=== PATIENT | female | born 1950 | race Caucasian/White ===

== ENCOUNTER 2016-10-21 15:39 | Day surgery (SDC) | payer MEDICARE ==
[2012-06-02 14:05] VITALS: BP 115/53
[~2016-10-21 15:39] MED LIST: DIPRIVAN 200 MG/20 ML IV ONE; Kenalog-40 IM ONE; Lactated Ringers IV ONE; Sensorcaine 0.25% 10 ML IJ ONE
--- NOTE | 2016-10-21 16:55 | XRAY ---
8 seconds of fluoroscopy was used in surgery for a left MBB L3-S1.
--- NOTE | 2016-10-21 16:55 | XRAY ---
Indication: Left L3-S1 MBB. Intraoperative fluoroscopy was provided for 8 seconds. Single digital spot image submitted for interpretation demonstrates 4 posterior spinal needles with the tips projecting adjacent to the left L3-S1 superior facets. Correlate with intraoperative findings/report.
== END 2016-10-21 16:50 | disposition home or self-care (01) ==
LOC: SDC-PAIN 15:39
PROVIDERS: ATTEND Pain Medicine Interventional Pain Medicine
DX: M47.816 Spondylosis without myelopathy or radiculopathy, lumbar region (principal); M47.22 Other spondylosis with radiculopathy, cervical region; M48.06 Spinal stenosis, lumbar region; M51.36 Other intervertebral disc degeneration, lumbar region; G56.02 Carpal tunnel syndrome, left upper limb
CPT/HCPCS: 64493; 64494; 64495; 72020; 77003; J2704; J3301

== ENCOUNTER 2016-11-13 05:59 | Day surgery (SDC) | payer MEDICARE ==
[2016-11-13] MEDS ORDERED: Lactated Ringers 1,000 ML IV SCH (06:30)
[2016-11-13] MEDS ORDERED: Lactated Ringers 1,000 ML IV ONE (07:52)
[2016-11-13] MEDS ORDERED: DIPRIVAN 200 MG/20 ML IV ONE (08:00)
[2016-11-13] MEDS ORDERED: Ketamine HCl 50 MG/ML IV ONE (08:00)
[2016-11-13 08:25] VITALS: O2SAT 96
[2016-11-13 09:07] VITALS: BP 127/80; PULSE 92
--- NOTE | 2016-11-13 14:01 | OP ---
SURGERY DATE: 11/13/16 SURGERY TIME: 0700 PREOPERATIVE DIAGNOSIS: 1. HEME-OCCULT POSITIVE STOOLS. 2. CHANGE IN BOWEL HABITS. POSTOPERATIVE DIAGNOSIS: 1. NORMAL EGD. 2. COLON POLYPS X 5. PROCEDURE: 1. EGD. 2. Colonoscopy. SPECIMENS: 1. Five hot forceps polypectomies from descending colon. ESTIMATED BLOOD LOSS: Minimal. SURGEON: Dr. Fernando Wood. ANESTHESIA: MAC by Dion Stone CRNA. DESCRIPTION OF PROCEDURE: After informed written consent was obtained, the patient was taken to the endoscopy suite. She underwent monitored anesthesia and a bite block was inserted. First the endoscope was inserted in the posterior oropharynx and under direct visualization, the esophagus was traversed. The esophageal mucosa had a normal mucosal appearance free of lesions or defects. The gastroesophageal junction likewise had a normal appearance. Upon entry into the stomach there was a normal rugated gastric mucosa free of lesions or defects. The antrum was inspected and noted to be free of any ulcerations or lesions. The pylorus was traversed and the 1st and 2nd portions of the duodenum were within normal limits. Upon withdrawal of the scope, all mucosal surfaces were noted to be within normal. The scope was removed and the scopes were switched. Digital rectal exam showed normal sphincter tone and no internal lesions. The scope was inserted in the rectum and sequentially the entire colonic mucosa was traversed. The level of the cecum was reached and verified with direct visualization of the ileocecal valve. Upon withdrawal, careful mucosal inspection revealed no obvious mucosal abnormalities until the level of the descending colon was reached. There were 5 sessile polyps in near proximity. They were all reviewed with hot forceps in their entirety with good hemostasis. Polyps were sent for pathology testing in 2 separate containers. The remainder of the colonic mucosa was within normal limits upon withdrawal with no obvious lesions. Prep was noted to be fair with some liquid stool present in multiple different areas. The scope was removed and the patient was transferred to the recovery room in excellent condition.
== END 2016-11-13 09:11 | disposition home or self-care (01) ==
LOC: SDC 05:59
PROVIDERS: ATTEND Family Medicine
PROC: 0DBM8ZX Excision of Descending Colon, Via Natural or Artificial Opening Endoscopic, Diagnostic (ICD-10-PCS; principal; 2016-11-13)
DX: D12.4 Benign neoplasm of descending colon (principal); R19.5 Other fecal abnormalities; R19.4 Change in bowel habit
CPT/HCPCS: 00740; 00810; 36415; J2704

== ENCOUNTER 2016-12-30 15:49 | Day surgery (SDC) | payer MEDICARE ==
[2012-06-02 14:05] VITALS: BP 115/53
[~2016-12-30 15:49] MED LIST changes: +Lactated Ringers 1,000 ML IV ONE; -Lactated Ringers IV ONE
--- NOTE | 2016-12-30 17:20 | XRAY ---
7 seconds fluoroscopy time in surgery for left L2-5 MBB.
--- NOTE | 2017-01-01 02:59 | XRAY ---
Indication: Left L2-L5 MBB. Intraoperative fluoroscopy was provided for 7 seconds. Single digital spot image submitted for interpretation demonstrates posterior spinal needles with the tips projected over the expected course of the left L2-L5 nerve roots. Correlate with intraoperative findings/report.
== END 2016-12-30 17:00 | disposition home or self-care (01) ==
LOC: SDC-PAIN 15:49
PROVIDERS: ATTEND Pain Medicine Interventional Pain Medicine
DX: M48.06 Spinal stenosis, lumbar region (principal); M47.22 Other spondylosis with radiculopathy, cervical region; M51.36 Other intervertebral disc degeneration, lumbar region; M48.02 Spinal stenosis, cervical region; M47.816 Spondylosis without myelopathy or radiculopathy, lumbar region
CPT/HCPCS: 64493; 64494; 64495; 72020; 77003; J2704; J3301

== ENCOUNTER 2017-07-21 12:22 | Observation (INO) | payer MEDICARE ==
[2017-07-21] MEDS ORDERED: Sodium Chloride 0.9% 1000 ML 1,000 ML IV STA (13:26)
[2017-07-21] MEDS ORDERED: Zofran 4 MG/2 ML VIAL IV ONE ×2 (13:26→17:26)
[2017-07-21] MEDS ORDERED: Hydromorphone 1 mg/ml Ampule IV ONE ×2 (13:26→16:10)
--- NOTE | 2017-07-21 13:35 | ERPHSYRPT ---
- History of Present Illness Time Seen by Provider: 07/21/17 13:10 Historian: patient Exam Limitations: clinical condition Patient Subjective Stated Complaint: pt states for the past 3 days she has had diarrhea with right lower quad abdominal pain. pt was seen at pain clinic this morning. Triage Nursing Assessment: pt pink, warm, dry. abdomen soft tender in right lower quad. pt afebrile. Physician History: PATIENT WITH A HISTORY OF MIGRAINE HEADACHE, TIA, HYPERTENSION, COPD, ARTHRITIS , BIPOLAR, AND COLITIS COMPLAINS OF SEVERE RIGHT LOWER ABDOMINAL PAINS FOR 3 DAYS ASSOCIATED WITH WATERY DIARRHEA, 3 EPISODES DAILY. DENIES FEVER, NAUSEA, EMESIS OR URINARY SYMPTOMS. Timing/Duration: day(s) Activities at Onset: none Quality: cramping, sharpness Abdominal Pain Onset Location: RLQ Pain Radiation: no radiation Severity of Pain-Max: severe Severity of Pain-Current: severe Modifying Factors: Improves With: movement Associated Symptoms: loss of appetite, other (DIARRHEA) Previous symptoms: same symptoms as today Allergies/Adverse Reactions: Penicillins Allergy (Mild, Verified 07/21/17 12:53) itching and hives meperidine HCl [From Demerol] Allergy (Unknown, Verified 07/21/17 12:53) "MAKES CRAZY" Home Medications: Aspirin/Dipyridamole [Aggrenox Capsules] 1 cap PO BID 06/22/14 [History] Cyclobenzaprine HCl 10 mg [Cyclobenzaprine 10 MG] 10 mg PO HS 06/22/14 [ History] Fluticasone/Salmeterol [Advair Hfa 115-21 Mcg Inhaler] 1 puff IH DAILY 06/22/14 [History] Glyburide 0.625 mg PO DAILY 06/22/14 [History] Levothyroxine Sodium 50 Mcg [Synthroid 50 Mcg] 50 mcg PO DAILY 06/22/14 [ History] Lisinopril 5 mg [Zestril 5 MG] 2.5 mg PO HS 06/22/14 [History] Magnesium Oxide 400 mg [Mag-Ox 400] 400 mg PO BID 06/22/14 [History] Metoprolol Tartrate 25 mg [Lopressor 25MG Tab] 25 mg PO BID 06/22/14 [ History] [place]-3/Dha/Epa/Fish Oil [[place]-3 Fish Oil 1,200 mg Sfgl] 1,200 mg PO DAILY [History] Omeprazole [Prilosec] 40 mg PO DAILY 06/22/14 [History] Potassium Chloride 20 Meq Tab [Potassium Chloride 20 MEQ TABLET] 40 meq PO BID 06/22/14 [History] Pregabalin [Lyrica] 150 mg PO QAM 06/22/14 [History] Simvastatin 40 mg [Zocor 40 mg] 40 mg PO HS 06/22/14 [History] Venlafaxine HCl [Effexor Xr] 150 mg PO DAILY 06/22/14 [History] Eszopiclone [Lunesta] 2 mg PO HS 06/27/14 [History] Ascorbic Acid 500 mg [Vitamin C 500 MG] 500 mg PO DAILY 12/19/15 [History] Betamethasone Valerate 1 applic TP UD PRN 12/19/15 [History] Cholecalciferol (Vitamin D3) [Vitamin D3] 1,000 unit PO DAILY 12/19/15 [History] Clobetasol Propionate 1 applic TP UD PRN 12/19/15 [History] Cyanocobalamin (Vitamin B-12) [Vitamin B12] 1,000 mcg PO DAILY 12/19/15 [History ] Furosemide 20 mg [Lasix 20 mg] 10 mg PO DAILY 12/19/15 [History] Meclizine HCl 12.5 mg PO TID PRN PRN 12/19/15 [History] Pregabalin [Lyrica 75 mg Cap] 75 mg PO UD 12/19/15 [History] Hydrocodone/APAP 10/325 mg [[place] 10/325 MG Tablet] 1 tab PO Q4-6HPRN PRN 06/03/16 [History] Hydroxychloroquine Sulfate [Plaquenil] 200 mg PO BID 07/21/17 [History] Hx Tetanus, Diphtheria Vaccination/Date Given: Yes (up to date) Hx Influenza Vaccination/Date Given: Yes Hx Pneumococcal Vaccination/Date Given: Yes Immunizations Up to Date: Yes - Review of Systems Constitutional: No Fever, No Chills Ears, Nose, & Throat: No Symptoms Respiratory: No Symptoms Cardiac: No Symptoms Abdominal/Gastrointestinal: Abdominal Pain, Diarrhea Genitourinary Symptoms: No Symptoms Musculoskeletal: No Symptoms Skin: No Symptoms Neurological: No Symptoms Psychological: No Symptoms Endocrine: No Symptoms - Past Medical History Pertinent Past Medical History: Yes Neurological History: Migraines, TIA, Other ENT History: No Pertinent History Cardiac History: High Cholesterol, Hypertension Respiratory History: Asthma, Bronchitis, COPD, Pneumonia Endocrine Medical History: Ayan's Disease, Diabetes Type II, Hypothyroidism Musculoskeletal History: Arthritis, Degenerative Disk Disease, Fibromyalgia, Osteoarthritis, Osteoporosis, Rheumatoid Arthritis GI Medical History: Colitis, Diverticulitis, Esophageal Disorder, GERD, Gallbladder Disease, GI Bleed, Hemorrhoids, Irritable Bowel, Polyps History: Other Psycho-Social History: Anxiety, Bipolar, Depression, Panic Disorder Female Reproductive Disorders: No Pertinent History Other Medical History: PT HAS HX OF PREVIOUS EPISODE OF BELLS PALSY, patient states she has had low kidney function before - Past Surgical History Past Surgical History: Yes Neuro Surgical History: No Pertinent History Cardiac: Cardiac Catheterization Respiratory: No Pertinent History Gastrointestinal: Cholecystectomy Genitourinary: No Pertinent History Musculoskeletal: Joint Replacement, Other Female Surgical History: Hysterectomy Other Surgical History: CERIVCAL FUSION AND 5TH,6TH VETEBRAES FUSED. TOTAL RIGHT KNEE, right shoulder rotator cuff and right arm disloation, repair bicep muscle and tendon of righ shoulder - Social History Smoking Status: Former smoker Exposure to second hand smoke: No Alcohol Use: None Drug Use: none Patient Lives Alone: No Significant Family History: diabetes, hypertension - Female History Hx Now: No - Nursing Vital Signs Nursing Vital Signs: Initial Vital Signs Temperature 98.2 F 07/21/17 12:48 Pulse Rate 83 07/21/17 12:48 Respiratory Rate 18 07/21/17 12:48 Blood Pressure 125/78 07/21/17 12:48 O2 Sat by Pulse Oximetry 96 07/21/17 12:48 Pain Scale Pain Intensity 6 - Physical Exam General Appearance: no apparent distress, alert Eye Exam: PERRL/EOMI, eyes nml inspection Ears, Nose, Throat Exam: normal ENT inspection, pharynx normal, moist mucous membranes Neck Exam: normal inspection, non-tender, supple, full range of motion Respiratory Exam: normal breath sounds, lungs clear, No respiratory distress Cardiovascular Exam: regular rate/rhythm, normal heart sounds Gastrointestinal/Abdomen Exam: soft, normal bowel sounds, tenderness (RIGHT LOWER QUAD TENDERNESS), No mass Back Exam: normal inspection, normal range of motion, No CVA tenderness, No vertebral tenderness Extremity Exam: normal inspection, normal range of motion, pelvis stable Neurologic Exam: alert, oriented x 3, cooperative, normal mood/affect, nml cerebellar function, sensation nml, No motor deficits Skin Exam: normal color, warm, dry SpO2 Interpretation: normal SpO2: 96 Oxygen Delivery: Room Air - CT Exams Abdomen/Pelvis CT Interpretation: Discussed w/radiologist (RETROCECAL APPENDIX IS NOW PROMINENT UP TO 15MM IN DIAMETER WISTH MINIMAL PERIAPPENDICEAL STRANDING, NO PERFORATION) Ordered Tests: Active Orders 24 hr Category Date Time Status Admission/Status Order ROUTINE Care 07/21/17 17:10 Ordered Code Status Order ROUTINE Care 07/21/17 17:10 Ordered IV Care Q6H Care 07/21/17 17:10 Ordered IV Insertion STAT Care 07/21/17 13:13 Active Vital Signs Q2H Care 07/21/17 17:11 Ordered cath [Cath for Specimen-Straight] STAT Care 07/21/17 13:13 Active NPO Diet 07/21/17 17:11 Ordered ABDOMEN AND PELVIS W CONTRAST [CT] Stat Exams 07/21/17 13:27 Completed AMYLASE Stat Lab 07/21/17 13:26 Completed BLOOD CULTURE Stat Lab 07/21/17 13:30 Received CBC W DIFF Stat Lab 07/21/17 13:26 Completed CMP Stat Lab 07/21/17 13:26 Completed LIPASE Stat Lab 07/21/17 13:26 Completed UA W/RFX UR CULTURE Stat Lab 07/21/17 13:27 Completed Oxygen NASAL CANNULA 2 lpm RT 07/21/17 17:10 Ordered Transfer Order Routine Transfer 07/21/17 Ordered Medication Summary Discontinued Medications Generic Name Dose Route Start Last Admin Trade Name Freq PRN Reason Stop Dose Admin Hydromorphone HCl 1 mg 07/21/17 13:26 07/21/17 14:08 Hydromorphone 1 Mg/Ml Ampule IV 07/21/17 13:27 1 mg STAT ONE Administration Hydromorphone HCl Confirm 07/21/17 13:41 Hydromorphone 1 Mg/Ml Ampule Administered 07/21/17 13:42 Dose 1 mg .ROUTE .STK-MED ONE Hydromorphone HCl 1 mg 07/21/17 16:10 07/21/17 16:21 Hydromorphone 1 Mg/Ml Ampule IV 07/21/17 16:11 1 mg STAT ONE Administration Hydromorphone HCl Confirm 07/21/17 16:16 Hydromorphone 1 Mg/Ml Ampule Administered 07/21/17 16:17 Dose 1 mg .ROUTE .STK-MED ONE Sodium Chloride 1,000 mls @ 500 mls/hr 07/21/17 13:26 07/21/17 14:03 Sodium Chloride 0.9% 1000 Ml IV 07/21/17 15:25 500 mls/hr .Q2H STA Administration Sodium Chloride Confirm 07/21/17 13:41 Sodium Chloride 0.9% 1000 Ml Administered 07/21/17 13:42 Dose 1,000 mls @ ud .ROUTE .STK-MED ONE Levofloxacin/Dextrose 500 mg in 100 mls @ 100 mls/hr 07/21/17 16:10 07/21/17 16:26 Levofloxacin 500mg/100ml D5w IV 07/21/17 17:09 100 mls/hr STAT STA Administration Levofloxacin/Dextrose Confirm 07/21/17 16:17 Levofloxacin 500mg/100ml D5w Administered 07/21/17 16:18 Dose 500 mg in 100 mls @ ud IV .STK-MED ONE Ondansetron HCl 4 mg 07/21/17 13:26 07/21/17 14:07 Zofran 4 Mg/2 Ml Vial IV 07/21/17 13:27 4 mg STAT ONE Administration Ondansetron HCl Confirm 07/21/17 13:40 Zofran 4 Mg/2 Ml Vial Administered 07/21/17 13:41 Dose 4 mg .ROUTE .STK-MED ONE Lab/Rad Data: Laboratory Result Diagrams 07/21/17 13:26 07/21/17 13:26 Laboratory Results 07/21/17 07/21/17 07/21/17 Range/Units 13:27 13:26 13:26 WBC 9.3 (4.0-10.5) K/mm3 RBC 3.90 L (4.1-5.4) M/mm3 Hgb 11.6 L (12.0-16.0) gm/dl Hct 36.5 (35-47) % MCV 93.6 (78-100) fl MCH 29.7 (26-32) pg MCHC 31.8 L (32-36) g/dl RDW 15.7 H (11.5-14.0) % Plt Count 338 (150-450) K/mm3 MPV 11.2 H (6-9.5) fl Gran % 64.8 (36.0-66.0) % Lymphocytes % 25.8 (24.0-44.0) % Monocytes % 6.9 (0.0-12.0) % Eosinophils % 1.6 (0.00-5.0) % Basophils % 0.9 (0.0-0.4) % Basophils # 0.08 (0-0.4) Sodium 136 (136-145) mEq/L Potassium 4.5 (3.5-5.1) mEq/L Chloride 99 (98-107) mEq/L Carbon Dioxide 28.1 (21-32) mEq/L Anion Gap 13.3 (5-15) MEQ/L BUN 11 (9-20) mg/dL Creatinine 1.20 (0.55-1.30) mg/dl Estimated GFR 48 ML/MIN Glucose 143 H (70-110) MG/DL Calcium 9.2 (8.5-10.1) mg/dL Total Bilirubin 0.20 (0.2-1.0) mg/dL AST 45 H (15-37) U/L ALT 28 (12-78) U/L Alkaline Phosphatase 92 (46-116) U/L Serum Total Protein 7.9 (6.4-8.2) gm/dL Albumin 3.5 (3.4-5.0) g/dL Amylase 29 (25-115) U/L Lipase 78 (73-393) U/L Ur Collection Type CATH Urine Color YELLOW (YELLOW) Urine Appearance CLEAR (CLEAR) Urine pH 5.0 (5-6) Ur Specific [place] 1.015 (1.005-1.025) Urine Protein NEGATIVE (Negative) Urine Ketones NEGATIVE (NEGATIVE) Urine Blood NEGATIVE (0-5) Jez/ul Urine Nitrite NEGATIVE (NEGATIVE) Urine Bilirubin NEGATIVE (NEGATIVE) Urine Urobilinogen NORMAL (0-1) mg/dL Ur Leukocyte Esterase NEGATIVE (NEGATIVE) Urine Culture Reflexed NO (NO) Urine Glucose NEGATIVE (NEGATIVE) mg/dL Specimen Received 07-21 1320 - Progress Progress Note: 07/21/17 13:35 IV NORMAL SALINE 500ML/HR ZOFRAN 4MG, DILAUDID 1MG IV, LEVAQUIN 500MG IVPB AFTER BLOOD CULTURES, 2ND DOSE OF DILAUDID 1MG IV 07/21/17 17:06 07/21/17 17:08, FLAGYL 500MG IVPB Discussed with Dr.: Other (DISCUSSED WITH DR Arnulfo BHATT AT 1630 FOR ADMIT FOR SURGERY) - Departure Time of Disposition: 17:15 Departure Disposition: Observation Clinical Impression: ACUTE APPENDICITIS Condition: Stable Critical Care Time: No Referrals: ADIN LEOS [Primary Care Provider] -
[2017-07-21 13:37] LABS: BASOPHIL % 0.9 % (0.0-0.4); Basophil (Absolute #) 0.08 (0-0.4); Eosinophil % 1.6 % (0.00-5.0); Eosinophil (Absolute #) 0.15 (0-0.5); Granulocyte Absolute (ANC) 6.06 (1.4-6.9); Granulocytes % 64.8 % (36.0-66.0); Hematocrit 36.5 % (35-47); Hemoglobin 11.6 gm/dl (12.0-16.0); Lymphocyte (Absolute #) 2.41 (1.0-4.6); Lymphocytes % 25.8 % (24.0-44.0); Mean Cell Volume 93.6 fl (78-100); Mean Corpuscular Hemoglobin 29.7 pg (26-32); Mean Corpuscular Hgb Concent. 31.8 g/dl (32-36); Mean Platelet Volume 11.2 fl (6-9.5); Monocyte (Absolute #) 0.64 (0.0-1.3); Monocytes % 6.9 % (0.0-12.0); Platelet Count 338 K/mm3 (150-450); Red Cell Distribution Width 15.7 % (11.5-14.0); White Blood Count 9.3 K/mm3 (4.0-10.5)
[2017-07-21] MEDS ORDERED: Zofran 4 MG/2 ML VIAL ONE (13:40)
[2017-07-21 13:41] LABS: Appearance CLEAR (CLEAR); Bilirubin NEGATIVE (NEGATIVE); Blood NEGATIVE Ery/ul (0-5); Glucose NEGATIVE (NEGATIVE); Ketones NEGATIVE (NEGATIVE); Leukocyte Esterase NEGATIVE (NEGATIVE); Nitrite NEGATIVE (NEGATIVE); Protein,Urine Dip NEGATIVE (Negative); Specific Gravity 1.015 (1.005-1.025); Urobilinogen NORMAL mg/dL (0-1)
[2017-07-21] MEDS ORDERED: Hydromorphone 1 mg/ml Ampule ONE ×2 (13:41→16:16)
[2017-07-21] MEDS ORDERED: Sodium Chloride 0.9% 1000 ML 1,000 ML ONE (13:41)
[2017-07-21 13:46] LABS: ALBUMIN 3.5 g/dL (3.4-5.0); ANION GAP 13.3 MEQ/L (5-15); BILIRUBIN,TOTAL 0.2 mg/dL (0.2-1.0); Calcium 9.2 mg/dL (8.5-10.1); Carbon Dioxide 28.1 mEq/L (21-32); Creatinine 1 1.2 mg/dl (0.55-1.30); Potassium 4.5 mEq/L (3.5-5.1); Total Protein 7.9 gm/dL (6.4-8.2)
--- NOTE | 2017-07-21 14:13 | XRAY ---
Indication: Right abdominal pain 3 days. Diarrhea. Multiple contiguous axial images obtained through the abdomen and pelvis using 80 cc Isovue 370 contrast only. Comparison: March 24, 2013. Lung bases demonstrates minimal fibrosis/scarring. No infiltrate, consolidation, or effusion. Heart is not enlarged. Noncontrasted stomach and bowel loops appear nonobstructed. Retrocecal appendix is now prominent up to 15 mm in diameter with minimal periappendiceal stranding favoring acute appendicitis. No free fluid/air. Again fatty liver, cholecystectomy, and hysterectomy. Remaining liver, pancreas, spleen, adrenal glands, kidneys, ureters, and bladder appear unremarkable for noncontrast exam. Minimal aortoiliac calcifications. No AAA or pathologic retroperitoneal lymphadenopathy. Osseous structures intact again with mild degenerative changes throughout the spine and minimal L4 grade 1 spondylolisthesis. Stable small fatty right inguinal hernia. Impression: 1. New CT features favoring acute appendicitis. No perforation or complications. 2. Stable fatty liver, small fatty right inguinal hernia, and L4 grade [address] DI 23.33
[2017-07-21] MEDS ORDERED: Levofloxacin 500MG/100ML D5W 500 MG/100 ML BAG IV STA (16:10)
[2017-07-21] MEDS ORDERED: Levofloxacin 500MG/100ML D5W 500 MG/100 ML BAG IV ONE ×2 (16:17→18:32)
[2017-07-21] MEDS ORDERED: Zofran 4 MG/2 ML VIAL IV PRN (17:10)
[2017-07-21] MEDS ORDERED: Sodium Chloride 0.9% 1000 ML 1,000 ML IV SCH (17:15)
[2017-07-21] MEDS ORDERED: TORAdol 30 mg Injection IV ONE (17:26)
[2017-07-21] MEDS ORDERED: BRIDION 200MG/2ML IV ONE (17:26)
[2017-07-21] MEDS ORDERED: DIPRIVAN 200 MG/20 ML IV ONE (17:26)
[2017-07-21] MEDS ORDERED: Zemuron 100 MG/10 ML IV ONE (17:26)
[2017-07-21] MEDS ORDERED: SUBLIMAZE 100 MCG/2 ML IV ONE (17:26)
[2017-07-21] MEDS ORDERED: Quelicin Fliptop 200 MG/10 ML IV ONE (17:26)
[2017-07-21] MEDS ORDERED: Decadron 4 MG INJ IV ONE (17:26)
[2017-07-21] MEDS ORDERED: Lactated Ringers 1,000 ML IV ONE ×3 (17:56→22:15)
[2017-07-21] MEDS ORDERED: Sensorcaine 0.25% 10 ML ONE (17:56)
[2017-07-21] MEDS ORDERED: Levofloxacin 500MG/100ML D5W 500 MG/100 ML BAG IV SCH (18:00)
[2017-07-21] MEDS ORDERED: CLINDAMYCIN-D5W 900 MG/50 ML*** 900 MG/50 ML BAG IV SCH (18:00)
[2017-07-21] MEDS ORDERED: Pepcid 20 MG VIAL IV SCH (18:00)
[2017-07-21] MEDS ORDERED: CLINDAMYCIN-D5W 900 MG/50 ML*** 900 MG/50 ML BAG IV ONE (18:32)
[2017-07-21] MEDS ORDERED: Pepcid 20 MG VIAL IV ONE (18:32)
[2017-07-21] MEDS: Advair Hfa 230/21 Mcg COMMON CANISTER IH SCH (19:00)
[2017-07-21] MEDS ORDERED: FLAGYL 500 MG IVPB 500 MG/100 ML BAG IV ONE (19:06)
[2017-07-21] MEDS ORDERED: SUBLIMAZE 100 MCG/2 ML ONE (21:40)
[2017-07-21] MEDS ORDERED: DILAUDID 2 MG INJECTION ONE (21:49)
[2017-07-21] MEDS ORDERED: Zestril 5 MG PO SCH (22:00)
[2017-07-21 23:07] LABS: Appearance CLEAR (CLEAR); Bilirubin NEGATIVE (NEGATIVE); Blood 50 Ery/ul (0-5); Glucose NEGATIVE (NEGATIVE); Ketones NEGATIVE (NEGATIVE); Leukocyte Esterase 1+ (NEGATIVE); Nitrite NEGATIVE (NEGATIVE); Protein,Urine Dip NEGATIVE (Negative); Urobilinogen NORMAL mg/dL (0-1)
[2017-07-21 23:08] LABS: Bacteria FEW /HPF (NEGATIVE); Epithelial Cells FEW /HPF (FEW); Mucus SLIGHT /HPF (NEGATIVE); WBC 0-2 /HPF (0-5)
[2017-07-21] MEDS ORDERED: DILAUDID 2 MG INJECTION IV PRN (23:09)
[2017-07-21] MEDS ORDERED: Lactated Ringers 1,000 ML IV SCH (23:30)
[2017-07-21] MEDS: Cyclobenzaprine 10 MG PO SCH (23:55)
[2017-07-21] MEDS: ZOCOR 20MG PO SCH (23:55)
[2017-07-21] MEDS: Lopressor 25MG Tab PO SCH (23:55)
[2017-07-21] MEDS: MAG-OX 400 PO SCH (23:55)
[2017-07-21] MEDS: LYRICA 75 MG CAP PO SCH (23:55)
[2017-07-21] MEDS: Klor Con 10 MEQ PO SCH (23:56)
[2017-07-22] MEDS: Ambien 10 MG PO SCH ×2 (00:16→20:37)
[2017-07-22] MEDS ORDERED: FEVERALL 650 MG RC PRN (07:12)
[2017-07-22] MEDS ORDERED: TYLENOL 325 MG PO PRN (07:12)
[2017-07-22] MEDS: Spiriva 18 Mcg/Cap Inhaler IH SCH (07:13)
[2017-07-22] MEDS: Advair Hfa 230/21 Mcg COMMON CANISTER IH SCH ×2 (07:14→19:00)
--- NOTE | 2017-07-22 08:09 | OP ---
SURGERY DATE/TIME: 07/21/20171915 PREOPERATIVE DIAGNOSIS: Acute appendicitis. POSTOPERATIVE DIAGNOSIS: Acute appendicitis. PROCEDURE: Laparoscopic appendectomy. SURGEON: Mikel Elam M.D. ANESTHESIA: General. SPECIMEN: Appendix. ESTIMATED BLOOD LOSS: 10 cc. COMPLICATIONS: None. FINDINGS: Same. INDICATION: This 67 year-old female presents with three days of right lower quadrant pain that has been worsening. CT scan was consistent with acute appendicitis. The patient is on Aggrenox and will be at somewhat increased risk for bleeding with surgery. After discussion of the risks and benefits of appendectomy including the potential risk for bleeding complications as well as potential need for conversion to open procedure as well as other complications the patient wishes to proceed. DESCRIPTION OF PROCEDURE: The patient was brought to the operating room, placed supine on the operating room table, placed under general endotracheal anesthesia. Whiting catheter and OG tube were placed. The abdomen was prepped and draped in sterile fashion. The patient is morbidly obese and had a prior midline laparotomy for a hysterectomy. Incision was made in the left upper quadrant. Veress needle was attempted in the left upper quadrant but did not seem like it penetrated into the abdomen and it was aborted. Instead a 5 mm optical trocar was placed in the left upper quadrant and under direct visualization was entered into the abdomen. Pneumoperitoneum was then obtained. The area was inspected on entry and there did not appear to be any inadvertent injury. The rest of the abdomen was visualized. There was significant adhesion from her prior lower midline laparotomy from open hysterectomy. The adhesions were to omentum as well as a loop of small bowel. These adhesions were taken down with both sharp dissection with Metzenbaum scissors as well as Metzenbaum on cautery for the omentum. All of the midline adhesions were taken down. Next, the patient was placed in Trendelenburg position and rolled to the left. Two left-sided trocars were placed for adhesiolysis, one in the left mid abdomen and one in the left lower quadrant. A fourth 5 mm trocar was then placed in the midline senior care between the umbilicus and pubis. Next, attention was turned to finding the appendix. The appendix was not readily apparent. The right colon was mobilized with hook cautery. After this the appendix was found to be retrocecal and very stuck to the cecum. The appendix was dissected with hook electrocautery from the side wall and from the cecum. The base of the appendix was freed up with narrowing dissector and a window was created in the mesentery at the base of the appendix. The left lower quadrant trocar was upsized to a 12 mm trocar. The stapler was then introduced through left lower quadrant 12 mm trocar and the base of the appendix stapled off with a blue load EndoGIA stapler. Next, the appendix was lifted up and the remaining attachments to the cecum were freed up with electrocautery and only the appendiceal mesentery remained, this was stapled with white load EndoGIA stapler. The appendix was then removed through an Endobag. The right lower quadrant had a little bit of ooze that was irrigated and suction dry. The base of the appendix staple line appeared to be very healthy tissue and not bleeding. The mesentery appeared to be hemostatic. However with her being on Aggrenox a piece of Surgicel was placed at the mesentery transection line and left in place there. The abdomen was completely suctioned dry. There were no signs of perforation. It appeared to be uncomplicated appendicitis. The patient was then leveled and the left lower quadrant 12 mm trocar was removed and closed with 0 Vicryl figure-of-8 suture using a suture passer under direct visualization. The remaining trocars were removed under direct visualization. The abdomen was desufflated. The skin was closed with 4-0 Vicryl, Steri-Strips and sterile dressing were applied. The patient was recovered and taken to PACU in stable condition.
--- NOTE | 2017-07-22 08:25 | CONS ---
CONSULT DATE: 07/21/2017 REASON FOR CONSULT: Abdominal pain. HISTORY: This 67 year-old female had three days of abdominal pain and diarrhea. The pain was focally in the right lower quadrant. It started in the right lower quadrant and persisted. It has been getting progressively worse. She had decreased appetite. No nausea. No vomiting. No fevers or chills. No dysuria. REVIEW OF SYSTEMS: Twelve systems reviewed and negative except as noted in the history of present illness. PAST MEDICAL HISTORY: Diverticulitis, chronic obstructive pulmonary disease, arthritis, bipolar, hyperlipidemia, diabetes, hypothyroidism. PAST SURGICAL HISTORY: Cardiac cath with no stents. Open total abdominal hysterectomy. Total knee. Cervical fusion. MEDICATIONS: Aggrenox, fluticasone, Glimepiride, Synthroid, lisinopril, Lopressor, statin, Lasix, EEMR per old record. ALLERGIES: PENICILLIN, MEPERIDINE. SOCIAL HISTORY: Quit tobacco in 1974. FAMILY HISTORY: Noncontributory. PHYSICAL EXAMINATION: GENERAL: No acute distress. EYES: Extraocular movements intact. Sclera nonicteric. NECK: No JVD. Supple. CHEST: Nonlabored breathing. EXTREMITIES: No peripheral edema. ABDOMEN: Obese, soft, nondistended, focal right lower quadrant tenderness with guarding. Prior lower midline laparotomy scar. LAB DATA AND TESTS: White blood cell 9.3, hemoglobin 11.6, PLT 338,000. Creatinine 1.2. CT scan showed acute appendicitis. ASSESSMENT: Acute appendicitis. PLAN: Laparoscopic possible open appendectomy. The patient is at increased risk for bleeding being on Aggrenox. However risks and benefits were discussed with the patient and the patient wishes to proceed with surgery.
--- NOTE | 2017-07-22 08:27 | PCM.SSS ---
History of Present Illness - Chief Complaint Chief Complaint: ACUTE APPENDICITIS History of Present Illness: is a 67 year old female pt of mine with DM and RA who was admitted last night for appendicitis. She had complained of 3d of RLQ pain and diarrhea. Had come in to see pain management then decided to go to and was sent to the ER. CT showed evidence of appendicitis. Dr. Mikel Elam did her appendectomy last night. This morning she is tolerating ice chips and denying abdominal pain. She has not passed gas. Medications & Allergies Home Medications: Home Medication List Aspirin/Dipyridamole [Aggrenox Capsules] 1 cap PO BID 06/22/14 [History Confirmed 07/21/17] Cyclobenzaprine HCl 10 mg [Cyclobenzaprine 10 MG] 10 mg PO HS 06/22/14 [ History Confirmed 07/21/17] Fluticasone/Salmeterol [Advair Hfa 115-21 Mcg Inhaler] 1 puff IH DAILY 06/22/14 [History Confirmed 07/21/17] Glyburide 0.625 mg PO DAILY 06/22/14 [History Confirmed 07/21/17] Levothyroxine Sodium 50 Mcg [Synthroid 50 Mcg] 50 mcg PO DAILY 06/22/14 [ History Confirmed 07/21/17] Lisinopril 5 mg [Zestril 5 MG] 2.5 mg PO HS 06/22/14 [History Confirmed ] Magnesium Oxide 400 mg [Mag-Ox 400] 400 mg PO BID 06/22/14 [History Confirmed 07/21/17] Metoprolol Tartrate 25 mg [Lopressor 25MG Tab] 25 mg PO BID 06/22/14 [ History Confirmed 07/21/17] Liberty-3/Dha/Epa/Fish Oil [Liberty-3 Fish Oil 1,200 mg Sfgl] 1,200 mg PO DAILY [History Confirmed 07/21/17] Omeprazole [Prilosec] 40 mg PO DAILY 06/22/14 [History Confirmed 07/21/17] Potassium Chloride 20 Meq Tab [Potassium Chloride 20 MEQ TABLET] 40 meq PO BID 06/22/14 [History Confirmed 07/21/17] Pregabalin [Lyrica] 150 mg PO QAM 06/22/14 [History Confirmed 07/21/17] Simvastatin 40 mg [Zocor 40 mg] 40 mg PO HS 06/22/14 [History Confirmed 07/21/17 ] Venlafaxine HCl [Effexor Xr] 150 mg PO DAILY 06/22/14 [History Confirmed ] Eszopiclone [Lunesta] 2 mg PO HS 06/27/14 [History Confirmed 07/21/17] Ascorbic Acid 500 mg [Vitamin C 500 MG] 500 mg PO DAILY 12/19/15 [History Confirmed 07/21/17] Betamethasone Valerate 1 applic TP UD PRN 12/19/15 [History Confirmed 07/21/17] Cholecalciferol (Vitamin D3) [Vitamin D3] 1,000 unit PO DAILY 12/19/15 [History Confirmed 07/21/17] Clobetasol Propionate 1 applic TP UD PRN 12/19/15 [History Confirmed 07/21/17] Cyanocobalamin (Vitamin B-12) [Vitamin B12] 1,000 mcg PO DAILY 12/19/15 [ History Confirmed 07/21/17] Furosemide 20 mg [Lasix 20 mg] 10 mg PO DAILY 12/19/15 [History Confirmed 07/21/17] Meclizine HCl 12.5 mg PO TID PRN PRN 12/19/15 [History Confirmed 07/21/17] Pregabalin [Lyrica 75 mg Cap] 75 mg PO UD 12/19/15 [History Confirmed ] Hydrocodone/APAP 10/325 mg [[place] 10/325 MG Tablet] 1 tab PO Q4-6HPRN PRN 06/03/16 [History Confirmed 07/21/17] Hydroxychloroquine Sulfate [Plaquenil] 200 mg PO BID 07/21/17 [History Confirmed 07/21/17] Allergies/Adverse Reactions: Allergies Allergy/AdvReac Type Severity Reaction Status Date / Time Penicillins Allergy Mild itching Verified 07/21/17 12:53 and hives meperidine HCl [From Demerol] Allergy Unknown Verified 07/21/17 12:53 - Past Medical History Past Medical History: Yes Neurological History: Migraines, TIA, Other ENT History: No Pertinent History Cardiac History: High Cholesterol, Hypertension Respiratory History: Asthma, Bronchitis, COPD, Pneumonia Endocrine Medical History: Sweetwater's Disease, Diabetes Type II, Hypothyroidism Musculoskelatal History: Arthritis, Degenerative Disk Disease, Fibromyalgia, Osteoarthritis, Osteoporosis, Rheumatoid Arthritis GI Medical History: Colitis, Diverticulitis, Esophageal Disorder, GERD, Gallbladder Disease, GI Bleed, Hemorrhoids, Irritable Bowel, Polyps History: Other Pyscho-Social History: Anxiety, Bipolar, Depression, Panic Disorder Reproductive Disorders: No Pertinent History Comment: PT HAS HX OF PREVIOUS EPISODE OF BELLS PALSY, patient states she has had low kidney function before - Female History Are you now?: No - Past Surgical History Past Surgical History: Yes Neuro Surgical History: No Pertinent History Cardiac History: Cardiac Catheterization Respiratory Surgery: No Pertinent History GI Surgical History: Cholecystectomy Genitourinary Surgical Hx: No Pertinent History Musculskeletal Surgical Hx: Joint Replacement, Other Female Surgical History: Hysterectomy Other Surgical History: CERIVCAL FUSION AND 5TH,6TH VETEBRAES FUSED. TOTAL RIGHT KNEE, right shoulder rotator cuff and right arm disloation, repair bicep muscle and tendon of righ shoulder - Social History Smoking Status: Former smoker Exposure to second hand smoke: No Alcohol: None Drug Use: none Significant Family History: diabetes, hypertension - Physical Exam Vital Signs: Vital Signs - 24 hr Temp Pulse Resp BP Pulse Ox 07/22/17 08:07 97.8 F 71 16 109/57 94 L 07/22/17 07:00 70 16 93 L 07/22/17 01:30 98.3 F 81 16 108/66 93 L 07/22/17 00:30 98.1 F 94 H 17 132/64 93 L 07/22/17 00:00 91 H 16 102/54 95 07/21/17 23:30 98.3 F 92 H 15 110/59 92 L 07/21/17 23:15 98.1 F 90 14 103/56 94 L 07/21/17 23:00 98.2 F 91 H 15 109/59 93 L 07/21/17 22:45 98.2 F 94 H 15 107/58 92 L 07/21/17 21:33 91 H 18 102/54 95 07/21/17 18:32 98.5 F 98 H 120/76 93 L 07/21/17 17:56 98.5 F 98 H 120/76 93 L 07/21/17 17:43 93 L 07/21/17 17:34 98.5 F 98 H 20 120/76 97 07/21/17 17:16 88 20 133/86 07/21/17 17:13 96 07/21/17 16:20 98 H 20 132/82 94 L 07/21/17 15:17 90 18 97/63 93 L 07/21/17 14:13 78 18 113/64 98 07/21/17 12:48 98.2 F 83 18 125/78 96 Oxygen-Last 24 hours O2 Percentage 2 Liters = 28% O2 Percentage 2 Liters = 28% O2 Percentage 2 Liters = 28% O2 Percentage 2 Liters = 28% O2 Percentage 2 Liters = 28% O2 Percentage 2 Liters = 28% O2 Percentage 2 Liters = 28% O2 Percentage 2 Liters = 28% General Appearance: no apparent distress, alert, obese Neurologic Exam: oriented x 3, cooperative Eye Exam: eyes nml inspection Neck Exam: normal inspection, supple Respiratory Exam: normal breath sounds, lungs clear, No crackles/rales, No rhonchi, No wheezing Cardiovascular Exam: regular rate/rhythm, normal heart sounds, No murmur Gastrointestinal/Abdomen Exam: soft, other (hypoactive bowel sounds, but +. Wounds are dressed; dressings clean and dry.), No tenderness, No distention Extremity Exam: normal inspection, No pedal edema, No swelling Results - Labs Lab/Micro Results: Lab Results-Last 24 Hours 07/21/17 Range/Units 19:20 Ur Collection Type CATH Urine Color YELLOW (YELLOW) Urine Appearance CLEAR (CLEAR) Urine pH 5.0 (5-6) Ur Specific [place] 1.020 (1.005-1.025) Urine Protein NEGATIVE (Negative) Urine Ketones NEGATIVE (NEGATIVE) Urine Blood 50 (0-5) Jez/ul Urine Nitrite NEGATIVE (NEGATIVE) Urine Bilirubin NEGATIVE (NEGATIVE) Urine Urobilinogen NORMAL (0-1) mg/dL Ur Leukocyte Esterase 1+ (NEGATIVE) Urine Microscopic RBC 2-5 (0-2) /HPF Urine Microscopic WBC 0-2 (0-5) /HPF Ur Epithelial Cells FEW (FEW) /HPF Urine Bacteria FEW (NEGATIVE) /HPF Urine Mucus SLIGHT (NEGATIVE) /HPF Urine Glucose NEGATIVE (NEGATIVE) mg/dL Specimen Received 07/21/17 1920 - Other Procedures and Tests Respiratory Therapy 07/21/17 19:00 Respiratory MDI BID 07/21/17 23:11 Oxygen NASAL CANNULA 2 lpm 07/22/17 07:00 Respiratory MDI UD Assessment/Plan (1) Appendicitis Current Visit: Yes Status: Acute Qualifiers: Appendicitis type: acute appendicitis Assessment & Plan: She had her appendectomy, expect she may well go home today. Code(s): K37 - UNSPECIFIED APPENDICITIS (2) Type 2 diabetes mellitus Current Visit: No Status: Chronic Qualifiers: Diabetes mellitus complication status: without complication Diabetes mellitus terminologist insulin use: without terminologist use Qualified Code(s): E11.9 - Type 2 diabetes mellitus without complications Hospital Summary - Hospital Course Hospital Course: Pt admitted through ER with appendicitis. Appendectomy done last night. If she tolerates po today I expect she will be discharged to home. - Vitals & Intake/Output Vital Signs: Vital Signs Temperature 97.8 F 07/22/17 08:07 Pulse Rate 71 07/22/17 08:07 Respiratory Rate 16 07/22/17 08:07 Blood Pressure 109/57 07/22/17 08:07 O2 Sat by Pulse Oximetry 94 L 07/22/17 08:07 Oxygen-Last Documented O2 Percentage 2 Liters = 28% Intake & Output: Intake & Output 07/19/17 07/20/17 07/21/17 07/22/17 11:59 11:59 11:59 11:59 Intake Total 726 Balance 726 Weight 85.275 kg - Lab Result Diagrams: 07/21/17 13:26 07/21/17 13:26 Lab Results-Last 24 Hrs: Lab Results-Last 24 Hours 07/21/17 Range/Units 19:20 Ur Collection Type CATH Urine Color YELLOW (YELLOW) Urine Appearance CLEAR (CLEAR) Urine pH 5.0 (5-6) Ur Specific [place] 1.020 (1.005-1.025) Urine Protein NEGATIVE (Negative) Urine Ketones NEGATIVE (NEGATIVE) Urine Blood 50 (0-5) Jez/ul Urine Nitrite NEGATIVE (NEGATIVE) Urine Bilirubin NEGATIVE (NEGATIVE) Urine Urobilinogen NORMAL (0-1) mg/dL Ur Leukocyte Esterase 1+ (NEGATIVE) Urine Microscopic RBC 2-5 (0-2) /HPF Urine Microscopic WBC 0-2 (0-5) /HPF Ur Epithelial Cells FEW (FEW) /HPF Urine Bacteria FEW (NEGATIVE) /HPF Urine Mucus SLIGHT (NEGATIVE) /HPF Urine Glucose NEGATIVE (NEGATIVE) mg/dL Specimen Received 07/21/170 - Procedures and Test Procedures and Tests throughout Hospitalization: Therapy Orders & Screens 07/21/17 18:20 RT Screen per Nursing Assess ONCE Comment: Protocol Order Physician Instructions: Greater than 3 points order RT Admission Screen Reason For Exam: Triggered on Admission Diagnosis: ACUTE APPENDICITIS Diagnosis: ACUTE APPENDICITIS Pneumonia: No Home O2: No Asthma: Yes CHF: No Home CPAP/BIPAP: No Home Nebs/MDI: Yes Total Points: 9 07/21/17 19:00 Respiratory MDI BID Comment: ADVAIR 230/21 BID Diagnosis: ACUTE APPENDICITIS 07/21/17 23:11 Oxygen NASAL CANNULA 2 lpm Comment: O2 sats >92% Diagnosis: ACUTE APPENDICITIS 07/22/17 07:00 Respiratory MDI UD Comment: SPIRIVA DAILY Diagnosis: ACUTE APPENDICITIS - Discharge Disposition: Home, Self-Care Condition: Stable Prescriptions: No Action Fluticasone/Salmeterol [Advair Hfa 115-21 Mcg Inhaler] 1 puff IH DAILY Liberty-3/Dha/Epa/Fish Oil [Liberty-3 Fish Oil 1,200 mg Sfgl] 1,200 mg PO DAILY Glyburide 0.625 mg PO DAILY Simvastatin 40 mg [Zocor 40 mg] 40 mg PO HS Metoprolol Tartrate 25 mg [Lopressor 25MG Tab] 25 mg PO BID Venlafaxine HCl [Effexor Xr] 150 mg PO DAILY Magnesium Oxide 400 mg [Mag-Ox 400] 400 mg PO BID Aspirin/Dipyridamole [Aggrenox Capsules] 1 cap PO BID Pregabalin [Lyrica] 150 mg PO QAM Omeprazole [Prilosec] 40 mg PO DAILY Potassium Chloride 20 Meq Tab [Potassium Chloride 20 MEQ TABLET] 40 meq PO BID Lisinopril 5 mg [Zestril 5 MG] 2.5 mg PO HS Cyclobenzaprine HCl 10 mg [Cyclobenzaprine 10 MG] 10 mg PO HS Levothyroxine Sodium 50 Mcg [Synthroid 50 Mcg] 50 mcg PO DAILY Eszopiclone [Lunesta] 2 mg PO HS Meclizine HCl 12.5 mg PO TID PRN PRN PRN Reason: Dizziness Clobetasol Propionate 1 applic TP UD PRN PRN Reason: VAGINAL BREAKOUT Furosemide 20 mg [Lasix 20 mg] 10 mg PO DAILY Betamethasone Valerate 1 applic TP UD PRN PRN Reason: EAR Cholecalciferol (Vitamin D3) [Vitamin D3] 1,000 unit PO DAILY Cyanocobalamin (Vitamin B-12) [Vitamin B12] 1,000 mcg PO DAILY Pregabalin [Lyrica 75 mg Cap] 75 mg PO UD Ascorbic Acid 500 mg [Vitamin C 500 MG] 500 mg PO DAILY Hydrocodone/APAP 10/325 mg [[place] 10/325 MG Tablet] 1 tab PO Q4-6HPRN PRN PRN Reason: Pain Hydroxychloroquine Sulfate [Plaquenil] 200 mg PO BID Follow up with: ADIN LEOS [Primary Care Provider] -
[2017-07-22] MEDS ORDERED: BETAMETHASONE VALERATE TP PRN (08:30)
[2017-07-22] MEDS ORDERED: NON-FORMULARY ITEM (Meclizine Hcl [Meclizine Hcl] 12.5 MG) PO PRN (08:30)
[2017-07-22] MEDS ORDERED: CLOBETASOL PROPIONATE TP PRN (08:30)
[2017-07-22] MEDS ORDERED: ANTIVERT 25 MG PO PRN (08:48)
[2017-07-22] MEDS ORDERED: MEDICATION INTERVENTION MC PRN ×2 (08:52→09:59)
[2017-07-22] MEDS ORDERED: LYRICA 75 MG CAP PO SCH (10:00)
[2017-07-22] MEDS ORDERED: NON-FORMULARY ITEM (Cholecalciferol (Vitamin D3) [Vitamin D3] 1,000 UNIT) PO SCH (10:00)
[2017-07-22] MEDS ORDERED: FISH OIL PO SCH (10:00)
[2017-07-22] MEDS ORDERED: OMEGA PO SCH (10:00)
[2017-07-22] MEDS ORDERED: NON-FORMULARY ITEM (Hydroxychloroquine Sulfate [Plaquenil] 200 MG) PO SCH (10:00)
[2017-07-22] MEDS ORDERED: NON-FORMULARY ITEM (Cyanocobalamin (Vitamin B-12) [Vitamin B12] 1,000 MCG) PO SCH (10:00)
[2017-07-22] MEDS ORDERED: EPA PO SCH (10:00)
[2017-07-22] MEDS ORDERED: DHA PO SCH (10:00)
[2017-07-22] MEDS ORDERED: NON-FORMULARY ITEM (Omeprazole [Prilosec] 40 MG) PO SCH (10:00)
[2017-07-22] MEDS ORDERED: PROTONIX 40 MG IV IV SCH (10:00)
[2017-07-22] MEDS ORDERED: GLYBURIDE PO SCH (10:00)
[2017-07-22] MEDS: Klor Con 10 MEQ PO SCH ×2 (10:03→20:36)
[2017-07-22] MEDS: Lopressor 25MG Tab PO SCH ×2 (10:03→20:37)
[2017-07-22] MEDS: VITAMIN D PO SCH (10:03)
[2017-07-22] MEDS: MAG-OX 400 PO SCH ×2 (10:03→20:37)
[2017-07-22] MEDS: SYNTHROID 50 MCG PO SCH (10:04)
[2017-07-22] MEDS: LASIX 20 MG PO SCH (10:04)
[2017-07-22] MEDS: Vitamin C 500 MG PO SCH (10:04)
[2017-07-22] MEDS: Protonix 40MG Tablet PO SCH (10:04)
[2017-07-22] MEDS: LYRICA 150MG PO SCH (10:04)
[2017-07-22] MEDS: FISH OIL 1,000 MG CAPSULE PO SCH (10:04)
[2017-07-22] MEDS: Vitamin B-12 500 MCG PO SCH (10:05)
[2017-07-22] MEDS: NON-FORMULARY ITEM PO SCH ×2 (10:05→20:37)
[2017-07-22] MEDS: Norco 10/325 MG Tablet PO PRN ×2 (13:00→20:36)
[2017-07-22] MEDS: LYRICA 75 MG CAP PO SCH (20:36)
[2017-07-22] MEDS: Cyclobenzaprine 10 MG PO SCH (20:37)
[2017-07-22] MEDS: ZOCOR 20MG PO SCH (20:37)
[2017-07-22] MEDS ORDERED: Zestril 5 MG PO SCH (22:00)
[2017-07-23] MEDS: Advair Hfa 230/21 Mcg COMMON CANISTER IH SCH (07:21)
[2017-07-23] MEDS: Spiriva 18 Mcg/Cap Inhaler IH SCH (07:21)
--- NOTE | 2017-07-23 08:50 | PCM.DS ---
Discharge Summary Date of Admission: 07/21/17 17:25 Admitting Physician: ADIN LEOS Primary Care Provider: ADIN LEOS Allergies Allergies Penicillins Allergy (Mild, Verified 07/21/17 12:53) itching and hives meperidine HCl [From Demerol] Allergy (Unknown, Verified 07/21/17 12:53) "MAKES DEBORA" Hospital Summary - Hospital Course Hospital Course: Pt admitted through ER with acute appendicitis. Had surgery w Dr. Cheli Elam two days ago. She is feeling OK today, not hungry this morning though. Has been passing gas. - Vitals & Intake/Output Vital Signs: Vital Signs Temperature 98.2 F 07/23/17 08:00 Pulse Rate 92 H 07/23/17 08:00 Respiratory Rate 18 07/23/17 08:00 Blood Pressure 105/64 07/23/17 08:00 O2 Sat by Pulse Oximetry 93 L 07/23/17 08:00 Oxygen-Last Documented O2 Percentage 2 Liters = 28% Intake & Output: Intake & Output 07/20/17 07/21/17 07/22/17 07/23/17 11:59 11:59 11:59 11:59 Intake Total 1086 2640 Balance 1086 2640 Weight 85.275 kg - Lab Result Diagrams: 07/21/17 13:26 07/21/17 13:26 Micro Results-Entire Visit: Microbiology 07/21/17 19:20 Urine Culture - Preliminary Catherized NO GROWTH TO DATE - Procedures and Test Procedures and Tests throughout Hospitalization: Therapy Orders & Screens 07/21/17 18:20 RT Screen per Nursing Assess ONCE Comment: Protocol Order Physician Instructions: Greater than 3 points order RT Admission Screen Reason For Exam: Triggered on Admission Diagnosis: ACUTE APPENDICITIS Diagnosis: ACUTE APPENDICITIS Pneumonia: No Home O2: No Asthma: Yes CHF: No Home CPAP/BIPAP: No Home Nebs/MDI: Yes Total Points: 9 07/21/17 19:00 Respiratory MDI BID Comment: CAITLIN BID Diagnosis: ACUTE APPENDICITIS 07/21/17 23:11 Oxygen NASAL CANNULA 2 lpm Comment: O2 sats >92% Diagnosis: ACUTE APPENDICITIS 07/22/17 07:00 Respiratory MDI UD Comment: KAMRAN DAILY Diagnosis: ACUTE APPENDICITIS Discharge Exam General Appearance: no apparent distress Neurologic Exam: alert, oriented x 3, cooperative Skin Exam: normal color, warm, dry Respiratory Exam: normal breath sounds, lungs clear, No crackles/rales, No rhonchi, No wheezing Cardiovascular Exam: regular rate/rhythm, normal heart sounds, No murmur Gastrointestinal/Abdomen Exam: soft, normal bowel sounds, tenderness ( generalized, particularly in the RLQ), other (dressings c/d/i) Extremity Exam: No pedal edema, No swelling Final Diagnosis/Problem List - Final Discharge Diagnosis/Problem (1) Appendicitis Current Visit: Yes Status: Acute Assessment & Plan: She's afebrile and passing gas. On regular diet but not much appetite this morning. I would anticipate if she eats well she may d/c home this afternoon, but await surgery recommendation. (2) Type 2 diabetes mellitus Current Visit: No Status: Chronic Assessment & Plan: will make sure accuchecks are ordered. - Discharge Disposition: Home, Self-Care Condition: Stable Prescriptions: No Action Fluticasone/Salmeterol [Advair Hfa 115-21 Mcg Inhaler] 1 puff IH DAILY Maynard-3/Dha/Epa/Fish Oil [Maynard-3 Fish Oil 1,200 mg Sfgl] 1,200 mg PO DAILY Glyburide 0.625 mg PO DAILY Simvastatin 40 mg [Zocor 40 mg] 40 mg PO HS Metoprolol Tartrate 25 mg [Lopressor 25MG Tab] 25 mg PO BID Venlafaxine HCl [Effexor Xr] 150 mg PO DAILY Magnesium Oxide 400 mg [Mag-Ox 400] 400 mg PO BID Aspirin/Dipyridamole [Aggrenox Capsules] 1 cap PO BID Pregabalin [Lyrica] 150 mg PO QAM Omeprazole [Prilosec] 40 mg PO DAILY Potassium Chloride 20 Meq Tab [Potassium Chloride 20 MEQ TABLET] 40 meq PO BID Lisinopril 5 mg [Zestril 5 MG] 2.5 mg PO HS Cyclobenzaprine HCl 10 mg [Cyclobenzaprine 10 MG] 10 mg PO HS Levothyroxine Sodium 50 Mcg [Synthroid 50 Mcg] 50 mcg PO DAILY Eszopiclone [Lunesta] 2 mg PO HS Meclizine HCl 12.5 mg PO TID PRN PRN PRN Reason: Dizziness Clobetasol Propionate 1 applic TP UD PRN PRN Reason: VAGINAL BREAKOUT Furosemide 20 mg [Lasix 20 mg] 10 mg PO DAILY Betamethasone Valerate 1 applic TP UD PRN PRN Reason: EAR Cholecalciferol (Vitamin D3) [Vitamin D3] 1,000 unit PO DAILY Cyanocobalamin (Vitamin B-12) [Vitamin B12] 1,000 mcg PO DAILY Pregabalin [Lyrica 75 mg Cap] 75 mg PO UD Ascorbic Acid 500 mg [Vitamin C 500 MG] 500 mg PO DAILY Hydrocodone/APAP 10/325 mg [[place] 10/325 MG Tablet] 1 tab PO Q4-6HPRN PRN PRN Reason: Pain Hydroxychloroquine Sulfate [Plaquenil] 200 mg PO BID Instructions: Appendectomy Additional Instructions: NO TUB BATHS, SHOWER ONLY. MONITOR SITES FOR REDNESS, SWELLING, INCREASED PAIN , DRAINAGE, AND/OR TEMP GREATER THAN 101. CALL SURGEON FOR ANY OF THE ABOVE. Follow up with: CHELI ELAM MD [ASSOCIATE STAFF] - 1 Week ADIN LEOS [Primary Care Provider] - Forms: Discharge Instructions
[2017-07-23] MEDS: Klor Con 10 MEQ PO SCH (09:18)
[2017-07-23] MEDS: Vitamin C 500 MG PO SCH (09:18)
[2017-07-23] MEDS: MAG-OX 400 PO SCH (09:18)
[2017-07-23] MEDS: Protonix 40MG Tablet PO SCH (09:18)
[2017-07-23] MEDS: Vitamin B-12 500 MCG PO SCH (09:18)
[2017-07-23] MEDS: Lopressor 25MG Tab PO SCH (09:18)
[2017-07-23] MEDS: LYRICA 150MG PO SCH (09:18)
[2017-07-23] MEDS: LASIX 20 MG PO SCH (09:18)
[2017-07-23] MEDS: VITAMIN D PO SCH (09:18)
[2017-07-23] MEDS: FISH OIL 1,000 MG CAPSULE PO SCH (09:18)
[2017-07-23] MEDS: SYNTHROID 50 MCG PO SCH (09:18)
[2017-07-23] MEDS: NON-FORMULARY ITEM PO SCH (09:18)
[2017-07-23] MEDS: Norco 10/325 MG Tablet PO PRN ×2 (09:19→15:47)
[2017-07-23] MEDS ORDERED: Effexor XR 75 MG PO SCH (10:00)
[2017-07-23 17:06] VITALS: BP 117/70; PULSE 85; O2SAT 95
== END 2017-07-23 18:10 | disposition home health service (06) ==
LOC: ED 12:22 → MED SURG 17:25 → UNDOADMOB 17:25 → UNDODISOB 07-23 18:10
PROVIDERS: ADMIT Family Medicine; ATTEND Family Medicine
PROC: 0DTJ4ZZ Resection of Appendix, Percutaneous Endoscopic Approach (ICD-10-PCS; principal; 2017-07-21)
DX: K35.80 Unspecified acute appendicitis (principal); E11.9 Type 2 diabetes mellitus without complications; Z79.899 Other long term (current) drug therapy
CPT/HCPCS: 44970; 82962 ×2; 96374; 96365; 99285; 36000; 96360; 96375; 87040; 82150; 81002; 81000; 36415 ×2; 83036; 83690; 85025; 80053; 87086; 74177; 97161; 94640 ×4; 94760 ×3; P9612; 00840; 88304; 99140; G0378; J0330; J1100; J1170; J1885; J1956; J2405; J2704; J3010; A9270-GY

== ENCOUNTER 2017-10-20 17:11 | Emergency (ER) | payer MEDICARE ==
[2017-10-20] MEDS ORDERED: Sodium Chloride 0.9% 1000 ML 1,000 ML IV STA (17:40)
[2017-10-20] MEDS ORDERED: NORCO 5/325 MG PO ONE ×2 (17:44→20:08)
[2017-10-20] MEDS ORDERED: Sodium Chloride 0.9% 1000 ML 1,000 ML ONE (17:47)
[2017-10-20] MEDS ORDERED: NORCO 5/325 MG ONE ×2 (17:47→20:13)
--- NOTE | 2017-10-20 17:48 | ERPHSYRPT ---
- History of Present Illness Source: patient, family Exam Limitations: no limitations Patient Subjective Stated Complaint: pt daughter reports that on wednesday she was feeling fine-yesterday started feeling weak-diarrhea x 3 during the night- denies vomiting-states that she feels weak all over Triage Nursing Assessment: pt pink warm and dry-resp easy and nonlabored-anxious -pt reports running out of her pain meds wednesday-states pharmacy will not refill rx Hx Tetanus, Diphtheria Vaccination/Date Given: Yes Hx Influenza Vaccination/Date Given: Yes Hx Pneumococcal Vaccination/Date Given: Yes Immunizations Up to Date: Yes <DINORAH GRADY - Last Filed: 10/20/17 18:31> <LIVIER HUBBARD - Last Filed: 10/20/17 20:13> - History of Present Illness Time Seen by Provider: 10/20/17 17:45 Physician History: mild to mod general weakness for a few days, feels shakey since stopping [place] on Wednesday, +diarrhea, but no blood, no fever, no injury (DINORAH GRADY) Allergies/Adverse Reactions: Penicillins Allergy (Mild, Verified 10/20/17 17:29) itching and hives meperidine HCl [From Demerol] Allergy (Unknown, Verified 10/20/17 17:29) "MAKES CRAZY" Home Medications: Fluticasone/Salmeterol [Advair Hfa 115-21 Mcg Inhaler] 1 puff IH DAILY 06/22/14 [History] Glyburide 0.625 mg PO DAILY 06/22/14 [History] Levothyroxine Sodium 50 Mcg [Synthroid 50 Mcg] 50 mcg PO DAILY 06/22/14 [ History] Lisinopril 5 mg [Zestril 5 MG] 2.5 mg PO HS 06/22/14 [History] Magnesium Oxide 400 mg [Mag-Ox 400] 400 mg PO BID 06/22/14 [History] Metoprolol Tartrate 25 mg [Lopressor 25MG Tab] 25 mg PO BID 06/22/14 [ History] [place]-3/Dha/Epa/Fish Oil [[place]-3 Fish Oil 1,200 mg Sfgl] 1,200 mg PO DAILY [History] Omeprazole [Prilosec] 40 mg PO DAILY 06/22/14 [History] Potassium Chloride 20 Meq Tab [Potassium Chloride 20 MEQ TABLET] 40 meq PO BID 06/22/14 [History] Simvastatin 40 mg [Zocor 40 mg] 40 mg PO HS 06/22/14 [History] Venlafaxine HCl [Effexor Xr] 150 mg PO DAILY 06/22/14 [History] Ascorbic Acid 500 mg [Vitamin C 500 MG] 500 mg PO DAILY 12/19/15 [History] Betamethasone Valerate 1 applic TP UD PRN 12/19/15 [History] Cholecalciferol (Vitamin D3) [Vitamin D3] 1,000 unit PO DAILY 12/19/15 [History] Clobetasol Propionate 1 applic TP UD PRN 12/19/15 [History] Cyanocobalamin (Vitamin B-12) [Vitamin B12] 1,000 mcg PO DAILY 12/19/15 [History ] Furosemide 20 mg [Lasix 20 mg] 10 mg PO DAILY 12/19/15 [History] Pregabalin [Lyrica 75 mg Cap] 75 mg PO UD 12/19/15 [History] Hydrocodone/APAP 10/325 mg [[place] 10/325 MG Tablet] 1 tab PO Q4-6HPRN PRN 06/03/16 [History] Clopidogrel Bisulfate 75 mg [PLAVIX 75 MG Tablet] 75 mg PO DAILY 10/20/17 [History] Cyclobenzaprine HCl 10 mg [Cyclobenzaprine 10 MG] 10 mg PO HS 10/20/17 [ History] Tiotropium [place] [Spiriva Respimat] 4 gm IN UD 10/20/17 [History] Trazodone HCl 50 mg [Desyrel 50 mg] 50 mg PO HS 10/20/17 [History] - Review of Systems Constitutional: Fatigue, Weakness, No Fever Eyes: No Vision Changes Ears, Nose, & Throat: No Throat Pain Respiratory: No Cough, No Cyanosis, No Dyspnea Cardiac: No Chest Pain Abdominal/Gastrointestinal: Diarrhea, No Abdominal Pain, No Hematochezia Musculoskeletal: Arthralgias, Myalgias Skin: No Rash Neurological: No Dizziness, No Focal Weakness <GRADY,DINORAH W. - Last Filed: 10/20/17 18:31> - Past Medical History Pertinent Past Medical History: Yes Neurological History: Migraines, TIA, Other ENT History: No Pertinent History Cardiac History: High Cholesterol, Hypertension Respiratory History: Asthma, Bronchitis, COPD, Pneumonia Endocrine Medical History: Pinellas's Disease, Diabetes Type II, Hypothyroidism Musculoskeletal History: Arthritis, Degenerative Disk Disease, Fibromyalgia, Osteoarthritis, Osteoporosis, Rheumatoid Arthritis GI Medical History: Colitis, Diverticulitis, Esophageal Disorder, GERD, Gallbladder Disease, GI Bleed, Hemorrhoids, Irritable Bowel, Polyps History: Other Psycho-Social History: Anxiety, Bipolar, Depression, Panic Disorder Female Reproductive Disorders: No Pertinent History Other Medical History: PT HAS HX OF PREVIOUS EPISODE OF [place], patient states she has had low kidney function before - Past Surgical History Past Surgical History: Yes Neuro Surgical History: No Pertinent History Cardiac: Cardiac Catheterization Respiratory: No Pertinent History Gastrointestinal: Cholecystectomy Genitourinary: No Pertinent History Musculoskeletal: Joint Replacement, Other Female Surgical History: Hysterectomy Other Surgical History: CERIVCAL FUSION AND 5TH,6TH VETEBRAES FUSED. TOTAL RIGHT KNEE, right shoulder rotator cuff and right arm disloation, repair bicep muscle and tendon of righ shoulder - Social History Smoking Status: Former smoker Exposure to second hand smoke: No Alcohol Use: None Drug Use: none Patient Lives Alone: No Significant Family History: diabetes, hypertension - Female History Hx Now: No <DINORAH GRADY - Last Filed: 10/20/17 18:31> - Physical Exam General Appearance: no apparent distress Eye Exam: PERRL/EOMI Ears, Nose, Throat Exam: moist mucous membranes Neck Exam: normal inspection Respiratory Exam: normal breath sounds Cardiovascular Exam: regular rate/rhythm Gastrointestinal/Abdomen Exam: soft, No rebound Extremity Exam: normal range of motion, No pedal edema Neurologic Exam: alert, oriented x 3, cooperative, agitation Skin Exam: warm, dry, No cyanosis SpO2 Interpretation: normal SpO2: 97 Oxygen Delivery: Room Air <DINORAH GRADY - Last Filed: 10/20/17 18:31> - Nursing Vital Signs Nursing Vital Signs: Initial Vital Signs Temperature 98.7 F 10/20/17 17:20 Pulse Rate 83 10/20/17 17:20 Respiratory Rate 18 10/20/17 17:20 Blood Pressure 128/79 03/21/18 17:20 O2 Sat by Pulse Oximetry 97 10/20/17 17:20 Pain Scale Pain Intensity 0 - Course Nursing assessment & vital signs reviewed: Yes <LIVIER HUBBARD - Last Filed: 10/20/17 20:13> Ordered Tests: Active Orders 24 hr Category Date Time Status EKG-ER Only STAT Care 10/20/17 17:43 Active IV Insertion STAT Care 10/20/17 17:40 Active CBC W DIFF Stat Lab 10/20/17 18:00 Completed CMP Stat Lab 10/20/17 18:00 Completed LIPASE Stat Lab 10/20/17 18:00 Completed Lactic Acid Stat Lab 10/20/17 17:40 Completed Occult Blood,Stool Other Stat Lab 10/20/17 20:00 Completed TROPONIN Q3H Lab 10/20/17 18:00 Completed TROPONIN Q3H Lab 10/20/17 20:45 Ordered TROPONIN Q3H Lab 10/20/17 23:45 Ordered TROPONIN Q3H Lab 10/21/17 02:45 Ordered TROPONIN Q3H Lab 10/21/17 05:45 Ordered UA W/RFX UR CULTURE Stat Lab 10/20/17 19:10 Completed Medication Summary Discontinued Medications Generic Name Dose Route Start Last Admin Trade Name Freq PRN Reason Stop Dose Admin Hydrocodone Bitart/Acetaminophen 1 tab 10/20/17 17:44 10/20/17 18:00 [place] 5/325 Mg PO 10/20/17 17:45 1 tab STAT ONE Administration Hydrocodone Bitart/Acetaminophen Confirm 10/20/17 17:47 [place] 5/325 Mg Administered 10/20/17 17:48 Dose 1 tab .ROUTE .STK-MED ONE Hydrocodone Bitart/Acetaminophen 2 tab 10/20/17 20:08 [place] 5/325 Mg PO 10/20/17 20:09 SENT HOME W/ PATIENT ONE Sodium Chloride 1,000 mls @ 999 mls/hr 10/20/17 17:40 10/20/17 18:00 Sodium Chloride 0.9% 1000 Ml IV 10/20/17 18:40 999 mls/hr .Q1H1M STA Administration Sodium Chloride Confirm 10/20/17 17:47 Sodium Chloride 0.9% 1000 Ml Administered 10/20/17 17:48 Dose 1,000 mls @ ud .ROUTE .STK-MED ONE Lab/Rad Data: Laboratory Result Diagrams 10/20/17 18:00 10/20/17 18:00 Laboratory Results 10/20/17 10/20/17 10/20/17 Range/Units 20:00 19:10 18:00 WBC (4.0-10.5) K/mm3 RBC (4.1-5.4) M/mm3 Hgb (12.0-16.0) gm/dl Hct (35-47) % MCV (78-100) fl MCH (26-32) pg MCHC (32-36) g/dl RDW (11.5-14.0) % Plt Count (150-450) K/mm3 MPV (6-9.5) fl Gran % (36.0-66.0) % Lymphocytes % (24.0-44.0) % Monocytes % (0.0-12.0) % Eosinophils % (0.00-5.0) % Basophils % (0.0-0.4) % Basophils # (0-0.4) Sodium (137-145) mmol/L Potassium (3.5-5.1) mmol/L Chloride (98-107) mmol/L Carbon Dioxide (22-30) mmol/L Anion Gap (5-15) MEQ/L BUN (7-17) mg/dL Creatinine (0.52-1.04) mg/dL Estimated GFR ML/MIN Glucose (74-106) mg/dL Lactic Acid (0.4-2.0) Calcium (8.4-10.2) mg/dL Total Bilirubin (0.2-1.3) mg/dL AST (14-36) U/L ALT (0-35) U/L Alkaline Phosphatase (38-126) U/L Troponin I < 0.012 (0.000-0.034) ng/mL Serum Total Protein (6.3-8.2) g/dL Albumin (3.5-5.0) g/dL Lipase (23-300) U/L Ur Collection Type CLEAN CATCH Urine Color LT.YELLOW (YELLOW) Urine Appearance CLEAR (CLEAR) Urine pH 5.0 (5-6) Ur Specific [place] 1.010 (1.005-1.025) Urine Protein NEGATIVE (Negative) Urine Ketones NEGATIVE (NEGATIVE) Urine Blood NEGATIVE (0-5) Jez/ul Urine Nitrite NEGATIVE (NEGATIVE) Urine Bilirubin NEGATIVE (NEGATIVE) Urine Urobilinogen NORMAL (0-1) mg/dL Ur Leukocyte Esterase NEGATIVE (NEGATIVE) Urine Culture Reflexed NO (NO) Urine Glucose NEGATIVE (NEGATIVE) mg/dL Stool Occult Blood NEGATIVE (Negative) Specimen Received 10/20/17 19110/20/17 10/20/17 10/20/17 Range/Units 18:00 18:00 18:00 WBC 8.8 (4.0-10.5) K/mm3 RBC 4.04 L (4.1-5.4) M/mm3 Hgb 12.1 (12.0-16.0) gm/dl Hct 37.1 (35-47) % MCV 91.8 (78-100) fl MCH 29.9 (26-32) pg MCHC 32.6 (32-36) g/dl RDW 16.0 H (11.5-14.0) % Plt Count 293 (150-450) K/mm3 MPV 10.7 H (6-9.5) fl Gran % 72.4 H (36.0-66.0) % Lymphocytes % 20.9 L (24.0-44.0) % Monocytes % 5.4 (0.0-12.0) % Eosinophils % 0.6 (0.00-5.0) % Basophils % 0.7 (0.0-0.4) % Basophils # 0.06 (0-0.4) Sodium 136 L (137-145) mmol/L Potassium 4.2 (3.5-5.1) mmol/L Chloride 99 (98-107) mmol/L Carbon Dioxide 26 (22-30) mmol/L Anion Gap 14.7 (5-15) MEQ/L BUN 13 (7-17) mg/dL Creatinine 0.87 (0.52-1.04) mg/dL Estimated GFR > 60 ML/MIN Glucose 131 H (74-106) mg/dL Lactic Acid (0.4-2.0) Calcium 10.1 (8.4-10.2) mg/dL Total Bilirubin 0.30 (0.2-1.3) mg/dL AST 37 H (14-36) U/L ALT 20 (0-35) U/L Alkaline Phosphatase 99 (38-126) U/L Troponin I (0.000-0.034) ng/mL Serum Total Protein 7.7 (6.3-8.2) g/dL Albumin 4.3 (3.5-5.0) g/dL Lipase 40 (23-300) U/L Ur Collection Type Urine Color (YELLOW) Urine Appearance (CLEAR) Urine pH (5-6) Ur Specific [place] (1.005-1.025) Urine Protein (Negative) Urine Ketones (NEGATIVE) Urine Blood (0-5) Jez/ul Urine Nitrite (NEGATIVE) Urine Bilirubin (NEGATIVE) Urine Urobilinogen (0-1) mg/dL Ur Leukocyte Esterase (NEGATIVE) Urine Culture Reflexed (NO) Urine Glucose (NEGATIVE) mg/dL Stool Occult Blood (Negative) Specimen Received 10/20/17 Range/Units 17:40 WBC (4.0-10.5) K/mm3 RBC (4.1-5.4) M/mm3 Hgb (12.0-16.0) gm/dl Hct (35-47) % MCV (78-100) fl MCH (26-32) pg MCHC (32-36) g/dl RDW (11.5-14.0) % Plt Count (150-450) K/mm3 MPV (6-9.5) fl Gran % (36.0-66.0) % Lymphocytes % (24.0-44.0) % Monocytes % (0.0-12.0) % Eosinophils % (0.00-5.0) % Basophils % (0.0-0.4) % Basophils # (0-0.4) Sodium (137-145) mmol/L Potassium (3.5-5.1) mmol/L Chloride (98-107) mmol/L Carbon Dioxide (22-30) mmol/L Anion Gap (5-15) MEQ/L BUN (7-17) mg/dL Creatinine (0.52-1.04) mg/dL Estimated GFR ML/MIN Glucose (74-106) mg/dL Lactic Acid 1.5 (0.4-2.0) Calcium (8.4-10.2) mg/dL Total Bilirubin (0.2-1.3) mg/dL AST (14-36) U/L ALT (0-35) U/L Alkaline Phosphatase (38-126) U/L Troponin I (0.000-0.034) ng/mL Serum Total Protein (6.3-8.2) g/dL Albumin (3.5-5.0) g/dL Lipase (23-300) U/L Ur Collection Type Urine Color (YELLOW) Urine Appearance (CLEAR) Urine pH (5-6) Ur Specific [place] (1.005-1.025) Urine Protein (Negative) Urine Ketones (NEGATIVE) Urine Blood (0-5) Jez/ul Urine Nitrite (NEGATIVE) Urine Bilirubin (NEGATIVE) Urine Urobilinogen (0-1) mg/dL Ur Leukocyte Esterase (NEGATIVE) Urine Culture Reflexed (NO) Urine Glucose (NEGATIVE) mg/dL Stool Occult Blood (Negative) Specimen Received <DINORAH GRADY - Last Filed: 10/20/17 18:31> - Progress Progress: improved <LIVIER HUBBARD - Last Filed: 10/20/17 20:13> - Progress Progress Note: 10/20/17 18:[address] Hubbard at 19:00 (DINORAH GRADY) 10/20/17 19:56 This is a 67-year-old white female initially seen by Dr. Grady she arrives with complaint of feeling shaky of for a few days since stopping [place] on Wednesday she' s had some diarrhea no blood no fever she has not had any injuries patient to the past medical history includes migraines, TIA, hyperlipidemia, high blood pressure, asthma, bronchitis, COPD, pneumonia, Pinellas's disease, diabetes, hypothyroidism, degenerative disc disease fibromyalgia osteoarthritis colitis diverticulitis GERD gallbladder disease GI bleed hemorrhoids irritable bowel syndrome and polyps Patient states that she's been out of her [place] for approximately 3 days she takes this on a regular basis her family members state that she is able to refill this tomorrow Patient's EKG on this patient normal sinus rhythm [address] or T wave changes essentially normal EKG patient's vitals are stable temp is 97 a pulse 83 respirations 18 blood pressure 128/79 O2 sat is 97% patient's labs are normal white count 8.8 hemoglobin 12.1 hematocrit 37.1 chemistry glucose was 131 sodium 136 potassium 4.2 chloride 99 bicarbonate 26 BUN 13 creatinine 0.87 patient's lipase is 40 urinalysis is normal troponin is normal patient is not having any chest pain lactate is 1.5 patient states she is feeling markedly better after receiving [place] 5/325 one tablet orally and 1 L of normal saline Patient had had stool for occult blood and C. difficile ordered by Dr. Grady the patient apparently had had one stool which she said was yellow when she was in here she has not seen any blood she states she doesn't feel like she can produce another stool. I have asked the patient's nurse to get orthostatic vital signs these are stable. Will obtain an occult blood stool. And plan to discharge. Will give patient 2 [place] tablets to go home she states she will be able to fill her [place] prescription tomorrow. Physical examination well-developed obese white female in no acute distress. Head is atraumatic normocephalic. Eyes PERRLA EOMI fundi are unremarkable. Ears TMs rhodes intact bilaterally. Nose is clear. Throat is clear. Neck is supple. Lungs clear to auscultation breath sounds equal bilaterally. Heart regular rate and rhythm without murmur. Abdomen soft nontender nondistended positive bowel sounds. Extremities full range of motion pulse he was symmetrical 2 over 4. Neuro cranial nerves II through XII intact DTRs symmetrical 2 over 4 [place] Coma Scale is 15. Impression dehydration. Narcotic withdrawal. (LIVIER HUBBARD) <DINORAH GRADY - Last Filed: 10/20/17 18:31> - Departure Time of Disposition: 20:12 Departure Disposition: Home Critical Care Time: No <LIVIER HUBBARD - Last Filed: 10/20/17 20:13> - Departure Clinical Impression: Dehydration, Volume depletion, Narcotic withdrawal Condition: Fair Referrals: ADIN LEOS [Primary Care Provider] - Additional Instructions: Return home. Plenty of fluids clear fluids only 24-48 hours of abdominal pain nausea or vomiting. You will be given 2 [place] tablets 5/325 take one orally every 4-6 hours as needed for pain. Fill your [place] as prescribed by her pain management physician tomorrow. Follow-up with your family doctor or pain management physician call for a follow -up appointment. Return for acute distress or for severe symptoms.
[2017-10-20 18:08] LABS: BASOPHIL % 0.7 % (0.0-0.4); Basophil (Absolute #) 0.06 (0-0.4); Eosinophil % 0.6 % (0.00-5.0); Eosinophil (Absolute #) 0.05 (0-0.5); Granulocyte Absolute (ANC) 6.34 (1.4-6.9); Granulocytes % 72.4 % (36.0-66.0); Hematocrit 37.1 % (35-47); Hemoglobin 12.1 gm/dl (12.0-16.0); Lymphocyte (Absolute #) 1.83 (1.0-4.6); Lymphocytes % 20.9 % (24.0-44.0); Mean Cell Volume 91.8 fl (78-100); Mean Corpuscular Hgb Concent. 32.6 g/dl (32-36); Mean Platelet Volume 10.7 fl (6-9.5); Monocyte (Absolute #) 0.47 (0.0-1.3); Monocytes % 5.4 % (0.0-12.0); Platelet Count 293 K/mm3 (150-450); Red Blood Count 4.04 M/mm3 (4.1-5.4); White Blood Count 8.8 K/mm3 (4.0-10.5)
[2017-10-20 18:13] LABS: Mean Corpuscular Hemoglobin 29.9 pg (26-32)
[2017-10-20 18:35] LABS: ALBUMIN 4.3 g/dL (3.5-5.0); ALKALINE PHOSPHATASE 99 U/L (38-126); ANION GAP 14.7 MEQ/L (5-15); BLOOD UREA NITROGEN 13 mg/dL (7-17); CHLORIDE 99 mmol/L (98-107); Calcium 10.1 mg/dL (8.4-10.2); Carbon Dioxide 26 mmol/L (22-30); Creatinine 1 0.87 mg/dL (0.52-1.04); Glucose 131 mg/dL (74-106); Potassium 4.2 mmol/L (3.5-5.1); SGOT/AST 37 U/L (14-36); SGPT/ALT 20 U/L (0-35); SODIUM 136 mmol/L (137-145); Total Protein 7.7 g/dL (6.3-8.2)
[2017-10-20 19:40] LABS: Appearance CLEAR (CLEAR); Bilirubin NEGATIVE (NEGATIVE); Blood NEGATIVE Ery/ul (0-5); Glucose NEGATIVE (NEGATIVE); Ketones NEGATIVE (NEGATIVE); Leukocyte Esterase NEGATIVE (NEGATIVE); Nitrite NEGATIVE (NEGATIVE); Protein,Urine Dip NEGATIVE (Negative); Urobilinogen NORMAL mg/dL (0-1)
[2017-10-20 20:07] VITALS: BP 128/87; PULSE 76; O2SAT 96
== END 2017-10-20 20:24 | disposition home or self-care (01) ==
LOC: ED 17:11
DX: E86.0 Dehydration (principal); E86.9 Volume depletion, unspecified; R53.1 Weakness; F11.23 Opioid dependence with withdrawal; T40.2X5A Adverse effect of other opioids, initial encounter; Z79.01 Long term (current) use of anticoagulants; Z79.899 Other long term (current) drug therapy
CPT/HCPCS: 36000; 36415; 80053; 81002; 82272; 83605; 83690; 84484; 85025; 93005; 96360; 99284; A9270-GY

== ENCOUNTER 2018-06-01 07:58 | Day surgery (SDC) | payer MEDICARE ==
[2012-06-02 14:05] VITALS: BP 115/53
[2018-06-01] MEDS ORDERED: Xylocaine-Mpf 2% 5 Ml Vial IJ ONE (07:59)
[2018-06-01] MEDS ORDERED: DIPRIVAN 200 MG/20 ML IV ONE (07:59)
[2018-06-01] MEDS ORDERED: Depo-Medrol 40 MG/ML IM ONE (07:59)
--- NOTE | 2018-06-01 10:36 | XRAY ---
Indication: Bilateral L4-S1 MBB. Intraoperative fluoroscopy was provided for 14 seconds. Single digital spot image submitted for interpretation demonstrates posterior spinal needle tips projecting over the expected course of the left and right L4-S1 nerve roots. Correlate with intraoperative findings/report.
--- NOTE | 2018-06-01 10:38 | XRAY ---
14 seconds fluoroscopy time in surgery for Bilateral L4-S1 MBB.
[2018-06-01] MEDS ORDERED: Lactated Ringers 1,000 ML IV ONE (10:53)
== END 2018-06-01 10:05 | disposition home or self-care (01) ==
LOC: SDC-PAIN 07:58
PROVIDERS: ATTEND Psychiatry & Neurology Pain Medicine
DX: M47.816 Spondylosis without myelopathy or radiculopathy, lumbar region (principal); E11.65 Type 2 diabetes mellitus with hyperglycemia
CPT/HCPCS: 64493; 64494; 72020; 77003; 82962; J1030; J2704

== ENCOUNTER 2019-03-08 08:06 | Day surgery (SDC) | payer MEDICARE ==
[2012-06-02 14:05] VITALS: BP 115/53
[~2019-03-08 08:06] MED LIST changes: -Kenalog-40 IM ONE; +Ketamine HCl 50 MG/ML ONE; -Lactated Ringers 1,000 ML IV ONE; -Sensorcaine 0.25% 10 ML IJ ONE
[2019-03-08] MEDS ORDERED: Xylocaine 1% Vial 30 ML PF IJ ONE (08:07)
[2019-03-08] MEDS ORDERED: Marcaine 0.5% SDV 10 ML IJ ONE (08:07)
[2019-03-08] MEDS ORDERED: Depo-Medrol 40 MG/ML IM ONE (08:07)
--- NOTE | 2019-03-08 10:13 | XRAY ---
16 seconds fluoroscopy time in surgery for L4-S1 RFA.
--- NOTE | 2019-03-08 10:13 | XRAY ---
Indication: L4-S1 RFA. Intraoperative fluoroscopy was provided for 16 seconds. 2 digital spot images submitted for interpretation demonstrates posterior needle tips projecting over the expected course of the right L4-S1 nerve roots. Correlate with intraoperative findings/report.
[2019-03-08] MEDS ORDERED: Lactated Ringers 1,000 ML IV ONE (13:44)
== END 2019-03-08 09:58 | disposition home or self-care (01) ==
LOC: SDC-PAIN 08:06
PROVIDERS: ATTEND Psychiatry & Neurology Pain Medicine
DX: M47.816 Spondylosis without myelopathy or radiculopathy, lumbar region (principal); E11.9 Type 2 diabetes mellitus without complications; I10 Essential (primary) hypertension; M06.9 Rheumatoid arthritis, unspecified; M79.7 Fibromyalgia; I51.9 Heart disease, unspecified; N28.9 Disorder of kidney and ureter, unspecified; E78.00 Pure hypercholesterolemia, unspecified; Z79.899 Other long term (current) drug therapy
CPT/HCPCS: 64635; 64636; 72100; 77002; 82962; J1030; J2001; J2704

== ENCOUNTER 2019-08-11 16:51 | Emergency (ER) | payer MEDICARE ==
--- NOTE | 2019-08-11 16:59 | ERPHSYRPT ---
- History of Present Illness Time Seen by Provider: 08/11/19 16:59 Source: patient Exam Limitations: no limitations Physician History: 69 y/o right handed white female presents 2 days after fall with left wrist pain and swelling and mild left lateral rib pain. pt has a pain management doctor and is not on any narcotics pain medication. Occurred: days ago (2) Reason for Fall: lost balance, slipped Injuries/Pain Location: upper extremity (left wrist), chest (left lateral ribs) Loss of Consciousness: no loss of consciousness Quality: aching, throbbing Severity of Pain-Max: moderate Severity of Pain-Current: moderate (with palpation) Modifying Factors: Improves With: movement Associated Symptoms (Fall): extremity injury (left wrist), other (left lateral ribs) Allergies/Adverse Reactions: Penicillins Allergy (Mild, Verified 08/11/19 17:22) itching and hives meperidine HCl [From Demerol] Allergy (Unknown, Verified 08/11/19 17:22) "MAKES CRAZY" Home Medications: Glyburide 0.625 mg PO DAILY 06/22/14 [History] Levothyroxine Sodium 50 Mcg [Synthroid 50 Mcg] 50 mcg PO DAILY 06/22/14 [ History] Lisinopril 5 mg [Zestril 5 MG] 2.5 mg PO HS 06/22/14 [History] Magnesium Oxide 400 mg [Mag-Ox 400] 400 mg PO BID 06/22/14 [History] Metoprolol Tartrate 25 mg [Lopressor 25MG Tab] 25 mg PO HS 06/22/14 [ History] [place]-3/Dha/Epa/Fish Oil [[place]-3 Fish Oil 1,200 mg Sfgl] 1,200 mg PO DAILY [History] Potassium Chloride 20 Meq Tab [Potassium Chloride 20 MEQ TABLET] 40 meq PO BID 06/22/14 [History] Simvastatin 40 mg [Zocor 40 mg] 40 mg PO HS 06/22/14 [History] Venlafaxine HCl [Effexor Xr] 225 mg PO DAILY 06/22/14 [History] Betamethasone Valerate 1 applic TP UD PRN 12/19/15 [History] Cholecalciferol (Vitamin D3) [Vitamin D3] 1,000 unit PO DAILY 12/19/15 [History] Clobetasol Propionate 1 applic TP UD PRN 12/19/15 [History] Cyanocobalamin (Vitamin B-12) [Vitamin B12] 1,000 mcg PO DAILY 12/19/15 [History ] Furosemide 20 mg [Lasix 20 mg] 10 mg PO DAILY 12/19/15 [History] Pregabalin [Lyrica 75 mg Cap] 150 mg PO TID 12/19/15 [History] Clopidogrel Bisulfate 75 mg [PLAVIX 75 MG Tablet] 75 mg PO DAILY 10/20/17 [History] Cyclobenzaprine HCl 10 mg [Cyclobenzaprine 10 MG] 10 mg PO HS 10/20/17 [ History] Trazodone HCl 50 mg [Desyrel 50 mg] 150 mg PO HS 10/20/17 [History] Hydrocodone/Acetaminophen [Hydrocodon-Acetamin 7.5-325/15] 15 ml PO TID [History] Meclizine HCl 25 mg [Antivert 25 mg] 12.5 mg PO TID PRN 06/15/19 [History] PANTOPRAZOLE 40 mg Tablet [Protonix 40MG Tablet] 40 mg PO QAM 06/15/19 [ History] Albuterol Sulfate [Ventolin Hfa] 8 gm IH UD 08/11/19 [History] Budesonide/Formoterol Fumarate [Symbicort 80-4.5 Mcg Inhaler] 6.9 gm IH DAILY [History] Hydroxychloroquine Sulfate [Plaquenil] 200 mg PO BID 08/11/19 [History] Montelukast Sodium 10 mg [Singulair 10 MG] 10 mg PO DAILY 08/11/19 [History] Hx Tetanus, Diphtheria Vaccination/Date Given: Yes Hx Influenza Vaccination/Date Given: Yes Hx Pneumococcal Vaccination/Date Given: Yes - Review of Systems Constitutional: No Symptoms Eyes: No Symptoms Ears, Nose, & Throat: No Symptoms Respiratory: No Symptoms Cardiac: No Symptoms Abdominal/Gastrointestinal: No Symptoms Genitourinary Symptoms: No Symptoms Musculoskeletal: Fall, Injury (left ribs and left wrist) Skin: No Symptoms Neurological: No Symptoms Psychological: No Symptoms Endocrine: No Symptoms Hematologic/Lymphatic: No Symptoms Immunological/Allergic: No Symptoms All Other Systems: Reviewed and Negative - Past Medical History Pertinent Past Medical History: Yes Neurological History: Peripheral Neuropathy, TIA ENT History: No Pertinent History Cardiac History: High Cholesterol, Hypertension Respiratory History: Asthma, COPD Endocrine Medical History: Diabetes Type I, Hypothyroidism Musculoskeletal History: Fibromyalgia GI Medical History: Colitis, Diverticulitis, Esophageal Disorder, GERD, Gallbladder Disease, GI Bleed, Hemorrhoids, Irritable Bowel, Polyps History: Other Psycho-Social History: Anxiety, Bipolar, Depression, Panic Disorder Female Reproductive Disorders: No Pertinent History Other Medical History: BIPOLAR DEPRESSION, GERD,. RIGHT SHOULDER SURGERY FOR RC REPAIR S/P FALL 2013. RIGHT TOTAL KNEE [id number] YEARS AGO. FUSION CERVICAL SPINE >20 YEARS AGO. - Past Surgical History Past Surgical History: Yes Neuro Surgical History: No Pertinent History Cardiac: Cardiac Catheterization Respiratory: No Pertinent History Gastrointestinal: Cholecystectomy Genitourinary: No Pertinent History Musculoskeletal: Joint Replacement, Other Female Surgical History: Hysterectomy Other Surgical History: CERIVCAL FUSION AND 5TH,6TH VETEBRAES FUSED. TOTAL RIGHT KNEE, right shoulder rotator cuff and right arm disloation, repair bicep muscle and tendon of righ shoulder - Social History Smoking Status: Former smoker Exposure to second hand smoke: No Alcohol Use: None Drug Use: none Patient Lives Alone: No Significant Family History: diabetes, hypertension - Nursing Vital Signs Nursing Vital Signs: Initial Vital Signs Temperature 98.3 F 08/11/19 17:04 Pulse Rate 84 08/11/19 17:04 Respiratory Rate 16 08/11/19 17:04 Blood Pressure 124/62 08/11/19 17:04 O2 Sat by Pulse Oximetry 96 08/11/19 17:04 Pain Scale Pain Intensity 10 - Marc Coma Score Best Eye Response (Marc): (4) open spontaneously Best Verbal Response ([place]): (5) oriented Best Motor Response (Marc): (6) obeys commands [place] Total: 15 - Physical Exam General Appearance: no apparent distress, alert, anxiety Head Injury: no evidence of injury Eye Exam: PERRL/EOMI, eyes nml inspection ENT Exam: airway nml, nml ext.inspection, hearing grossly normal Neck Exam: supple, trachea midline, full range of motion, normal alignment, normal inspection Respiratory/Chest Exam: normal breath sounds, rib tenderness (left lateral), No respiratory distress, No decreased breath sounds, No accessory muscle use, No subcutaneous emphysema Cardiovascular Exam: normal heart sounds, regular rate/rhythm Gastrointestinal Exam: No tenderness Rectal Exam: not done Back Exam: normal inspection, normal range of motion, No CVA tenderness, No vertebral tenderness Extremity Exam: limited range of motion (left wrist), bony point tenderness ( left wrist), swelling, tenderness Neurologic Exam: alert, oriented x 3, cooperative, mechanic senior II-XII nml as tested Skin Exam: normal color, warm, dry SpO2 Interpretation: normal O2 Delivery: Room Air - Course Nursing assessment & vital signs reviewed: Yes Ordered Tests: Active Orders 24 hr Category Date Time Status RIBS UNILATERAL Stat Exams 08/11/19 17:14 Taken WRIST (MIN 3 VIEWS) Stat Exams 08/11/19 17:14 Taken - Progress Progress: unchanged Progress Note: 08/11/19 18:13 left rib xray-no acute fx or process left wrist xray-? nondisplaced distal radius fx Counseled pt/family regarding: diagnosis, need for follow-up, rad results - Departure Departure Disposition: Home Clinical Impression: Fall, Distal radius fracture, left Condition: Stable Critical Care Time: No Referrals: ADIN LEOS [Primary Care Provider] - REPLACED BY [facility] [phone] Additional Instructions: wear splint and sling for comfort. ice pack to area 3 times daily. use tylenol and ibuprofen for pain. follow up with REPLACED BY [facility] clinic on Wednesday08/14/2019 between 8am and 10 am for further management
[2019-08-11] MEDS ORDERED: OXYCODONE-ACETAMINOPHEN 10-325 PO STA (18:17)
[2019-08-11] MEDS ORDERED: OXYCODONE-ACETAMINOPHEN 10-325 ONE (18:20)
[2019-08-11 18:24] VITALS: BP 90/67; PULSE 86; O2SAT 94
--- NOTE | 2019-08-11 22:36 | XRAY ---
Indication: Pain following fall 2 days ago. Comparison: None. 3 views of the left wrist demonstrates osteopenia, moderate/advanced degenerative changes 1st metacarpal multangular scaphoid articulation, radiocarpal joint space narrowing, and ulnocarpal degenerative chondrocalcinosis all similar appearance to left hand radiograph June 05, 2019. No other bony, articular, or soft tissue abnormalities.
--- NOTE | 2019-08-11 22:38 | XRAY ---
Indication: Pain following fall 2 days ago. Comparison: None 2 views of the left ribs demonstrates osteopenia, mild left shoulder degenerative changes, and mild degenerative spondylosis of the visualized thoracolumbar spine. No other bony, articular, or soft tissue abnormalities.
== END 2019-08-11 18:42 | disposition home or self-care (01) ==
LOC: ED 16:51
DX: S52.502B Unspecified fracture of the lower end of left radius, initial encounter for open fracture type I or II (principal); M25.532 Pain in left wrist; W01.0XXA Fall on same level from slipping, tripping and stumbling without subsequent striking against object, initial encounter; Y93.9 Activity, unspecified; Y92.9 Unspecified place or not applicable; Z79.899 Other long term (current) drug therapy; E03.9 Hypothyroidism, unspecified; I10 Essential (primary) hypertension; J44.9 Chronic obstructive pulmonary disease, unspecified; E10.9 Type 1 diabetes mellitus without complications; F41.9 Anxiety disorder, unspecified; F31.9 Bipolar disorder, unspecified
CPT/HCPCS: 71100; 73110; 99284; A4570; A9270-GY

== ENCOUNTER 2019-08-27 20:05 | Observation (INO) | payer MEDICARE ==
--- NOTE | 2019-08-27 20:27 | ERPHSYRPT ---
- History of Present Illness Time Seen by Provider: 08/27/19 20:22 Source: patient, EMS Exam Limitations: no limitations Patient Subjective Stated Complaint: pt states she has been feeling light headed an has felt a "whooshing in her head" today. states she was closing her curtains, turned around and "felt like the life went out of her" and she fell down. states after that she almost fell again while her daughter was there when she got dizzy again. Triage Nursing Assessment: pt alert and oriented, answers questions approp. pt arrive per ambulance and transfered to [facility] with assist of 3. skin warm and dry. respirations nonlabored. tenderness noted to lt ribs, no bruising noted. velcro splint to lt wrist. cap refill wnl. Physician History: vision was closing her purple and when she turned around she felt like she was going to pass out. She fell on the floor. Has pain in the neck. EMS placed a c-collar prior to arrival. Patient fell 2 weeks ago and a glucose of the ribs and the left wrist. Patient says at that time that she lost her balance but this time she actually had a near syncope. The daughter says that this happened second time when they were about to leave her home. [place] Patient complains of pain in the neck, pain in the left anterior lower ribs and pain in the left wrist. Left wrist is immobilized with a Velcro immobilizer. Occurred: just prior to arrival Reason for Fall: fainted Injuries/Pain Location: neck Loss of Consciousness: no loss of consciousness Quality: dullness Severity of Pain-Max: moderate Severity of Pain-Current: moderate Modifying Factors: Improves With: movement Associated Symptoms (Fall): chest pain, dizziness, lightheadedness, neck pain, trouble walking, No abdominal pain, No back pain, No confusion, No headache, No muscle spasms, No nausea, No ringing in ears, No seizures, No shortness of breath, No vomiting, No vision changes Allergies/Adverse Reactions: Penicillins Allergy (Mild, Verified 08/27/19 20:34) itching and hives meperidine HCl [From Demerol] Allergy (Unknown, Verified 08/27/19 20:34) "MAKES CRAZY" Home Medications: Glyburide 0.625 mg PO DAILY 06/22/14 [History] Levothyroxine Sodium 50 Mcg [Synthroid 50 Mcg] 50 mcg PO DAILY 06/22/14 [ History] Lisinopril 5 mg [Zestril 5 MG] 2.5 mg PO HS 06/22/14 [History] Magnesium Oxide 400 mg [Mag-Ox 400] 400 mg PO BID 06/22/14 [History] Metoprolol Tartrate 25 mg [Lopressor 25MG Tab] 25 mg PO HS 06/22/14 [ History] Stevens-3/Dha/Epa/Fish Oil [Stevens-3 Fish Oil 1,200 mg Sfgl] 1,200 mg PO DAILY [History] Potassium Chloride 20 Meq Tab [Potassium Chloride 20 MEQ TABLET] 40 meq PO BID 06/22/14 [History] Simvastatin 40 mg [Zocor 40 mg] 40 mg PO HS 06/22/14 [History] Venlafaxine HCl [Effexor Xr] 225 mg PO DAILY 06/22/14 [History] Betamethasone Valerate 1 applic TP UD PRN 12/19/15 [History] Cholecalciferol (Vitamin D3) [Vitamin D3] 1,000 unit PO DAILY 12/19/15 [History] Clobetasol Propionate 1 applic TP UD PRN 12/19/15 [History] Cyanocobalamin (Vitamin B-12) [Vitamin B12] 1,000 mcg PO DAILY 12/19/15 [History ] Furosemide 20 mg [Lasix 20 mg] 10 mg PO DAILY 12/19/15 [History] Pregabalin [Lyrica 75 mg Cap] 150 mg PO TID 12/19/15 [History] Clopidogrel Bisulfate 75 mg [PLAVIX 75 MG Tablet] 75 mg PO DAILY 10/20/17 [History] Cyclobenzaprine HCl 10 mg [Cyclobenzaprine 10 MG] 10 mg PO HS 10/20/17 [ History] Trazodone HCl 50 mg [Desyrel 50 mg] 150 mg PO HS 10/20/17 [History] Hydrocodone/Acetaminophen [Hydrocodon-Acetamin 7.5-325/15] 15 ml PO TID [History] Meclizine HCl 25 mg [Antivert 25 mg] 12.5 mg PO TID PRN 06/15/19 [History] PANTOPRAZOLE 40 mg Tablet [Protonix 40MG Tablet] 40 mg PO QAM 06/15/19 [ History] Albuterol Sulfate [Ventolin Hfa] 8 gm IH UD 08/11/19 [History] Budesonide/Formoterol Fumarate [Symbicort 80-4.5 Mcg Inhaler] 6.9 gm IH DAILY [History] Hydroxychloroquine Sulfate [Plaquenil] 200 mg PO BID 08/11/19 [History] Montelukast Sodium 10 mg [Singulair 10 MG] 10 mg PO DAILY 08/11/19 [History] Hx Tetanus, Diphtheria Vaccination/Date Given: Yes Hx Influenza Vaccination/Date Given: Yes Hx Pneumococcal Vaccination/Date Given: Yes Immunizations Up to Date: Yes - Review of Systems Constitutional: No Fever, No Chills Eyes: No Symptoms Ears, Nose, & Throat: No Symptoms Respiratory: No Cough, No Dyspnea Cardiac: No Chest Pain, No Edema, No Syncope Abdominal/Gastrointestinal: No Abdominal Pain, No Nausea, No Vomiting, No Diarrhea Genitourinary Symptoms: No Dysuria Musculoskeletal: Other ( pain in the left anterior lower ribs and pain in the left wrist), No Back Pain, No Neck Pain Skin: No Rash Neurological: Dizziness, No Focal Weakness, No Lethargy, No Paralysis, No Parasthesia, No Sensory Changes, No Tremors Psychological: No Symptoms Endocrine: No Symptoms All Other Systems: Reviewed and Negative - Past Medical History Pertinent Past Medical History: Yes Neurological History: Peripheral Neuropathy, TIA ENT History: No Pertinent History Cardiac History: High Cholesterol, Hypertension Respiratory History: Asthma, COPD Endocrine Medical History: Diabetes Type I, Hypothyroidism Musculoskeletal History: Fibromyalgia GI Medical History: Colitis, Diverticulitis, Esophageal Disorder, GERD, Gallbladder Disease, GI Bleed, Hemorrhoids, Irritable Bowel, Polyps History: Other Psycho-Social History: Anxiety, Bipolar, Depression, Panic Disorder Female Reproductive Disorders: No Pertinent History Other Medical History: BIPOLAR DEPRESSION, GERD,. RIGHT SHOULDER SURGERY FOR RC REPAIR S/P FALL 2013. RIGHT TOTAL KNEE [id number] YEARS AGO. FUSION CERVICAL SPINE >20 YEARS AGO. - Past Surgical History Past Surgical History: Yes Neuro Surgical History: No Pertinent History Cardiac: Cardiac Catheterization Respiratory: No Pertinent History Gastrointestinal: Cholecystectomy Genitourinary: No Pertinent History Musculoskeletal: Joint Replacement, Other Female Surgical History: Hysterectomy Other Surgical History: CERIVCAL FUSION AND 5TH,6TH VETEBRAES FUSED. TOTAL RIGHT KNEE, right shoulder rotator cuff and right arm disloation, repair bicep muscle and tendon of righ shoulder - Social History Smoking Status: Former smoker Exposure to second hand smoke: No Alcohol Use: None Drug Use: none Patient Lives Alone: Yes Significant Family History: diabetes, hypertension - Nursing Vital Signs Nursing Vital Signs: Initial Vital Signs Temperature 98.7 F 08/27/19 20:08 Pulse Rate 86 08/27/19 20:08 Respiratory Rate 16 08/27/19 20:08 Blood Pressure 129/73 08/27/19 20:08 O2 Sat by Pulse Oximetry 94 L 08/27/19 20:08 Pain Scale Pain Intensity 9 - Gordon Coma Score Best Eye Response (Gordon): (4) open spontaneously Best Verbal Response (Marc): (5) oriented Best Motor Response (Gordon): (6) obeys commands Marc Total: 15 - Physical Exam General Appearance: no apparent distress, alert Head Injury: no evidence of injury Eye Exam: PERRL/EOMI ENT Exam: airway nml Neck Exam: trachea midline, normal inspection, limited range of motion, muscle spasm, paraspinous muscle tender, pain on movement of neck, other (c-collar applied prior to arrival.), No focal neuro deficit Respiratory/Chest Exam: normal breath sounds, other (lleft anterior lower chest wall pain and tenderness.), No chest tenderness, No respiratory distress, No accessory muscle use, No subcutaneous emphysema Cardiovascular Exam: normal heart sounds, regular rate/rhythm, normal peripheral pulses Gastrointestinal Exam: soft, normal bowel sounds, No tenderness, No distention, No guarding, No ecchymosis Back Exam: normal inspection, normal range of motion, No vertebral tenderness Extremity Exam: normal inspection, normal range of motion, pelvis stable, other (left wrist is immobilized as the Velcro immobilizer prior to arrival.), No deformities Neurologic Exam: alert, oriented x 3, cooperative, 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 supervisor 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 nml as tested, normal mood/affect, sensation nml, No motor deficits, No agitation, No uncooperative, No abnormal cerebellar tests Skin Exam: normal color, warm, dry SpO2 Interpretation: normal SpO2: 94 O2 Delivery: Room Air - Course EKG Interpreted by Me: RATE (86), Sinus Rhythm, NORMAL AXIS, NORMAL INTERVALS, Non-specific ST Changes - Radiology Exams Chest X-ray Interpretation: Reviewed by me, No Pneumonia, No Pneumothorax - CT Exams Head CT Interpretation: Tele-radiologist Report, No Fracture, Other (Nothing acute) Cervical Spine CT Interpretation: Tele-radiologist Report, No Fracture Ordered Tests: Active Orders 24 hr Category Date Time Status Quality Control Tester STAT Care 08/27/19 20:34 Active EKG-ER Only STAT Care 08/27/19 20:32 Active IV Insertion STAT Care 08/27/19 20:32 Active NPO (ED) STAT Care 08/27/19 20:33 Active Pulse Oximetry (ED) STAT Care 08/27/19 20:32 Active CERVICAL SPINE WO CONTRAST [CT] Stat Exams 08/27/19 21:01 Taken CHEST 1 VIEW (PORTABLE) Stat Exams 08/27/19 20:34 Taken HEAD WITHOUT CONTRAST [CT] Stat Exams 08/27/19 20:35 Taken CBC W DIFF Stat Lab 08/27/19 20:52 Completed CK-Creatinine Phosphokinase Stat Lab 08/27/19 20:52 Completed CMP Stat Lab 08/27/19 20:52 Completed CULTURE,URINE Stat Lab 08/27/19 21:25 Received MAGNESIUM Stat Lab 08/27/19 20:52 Completed NT PRO BNP Stat Lab 08/27/19 20:52 Completed PROTIME WITH INR Stat Lab 08/27/19 20:52 Completed PTT Stat Lab 08/27/19 20:52 Completed TROPONIN Q3H Lab 08/27/19 20:52 Completed TROPONIN Q3H Lab 08/27/19 23:45 Ordered TROPONIN Q3H Lab 08/28/19 02:45 Ordered UA W/RFX UR CULTURE Stat Lab 08/27/19 21:25 Completed Medication Summary Generic Name Dose Route Start Last Admin Trade Name Freq PRN Reason Stop Dose Admin Sodium Chloride 1,000 mls @ 100 mls/hr 08/27/19 20:45 08/27/19 20:44 Sodium Chloride 0.9% 1000 Ml IV 09/26/19 20:44 100 mls/hr .Q10H RAMSEY Administration Discontinued Medications Generic Name Dose Route Start Last Admin Trade Name Michelle PRN Reason Stop Dose Admin Morphine Sulfate 2 mg 08/27/19 20:32 08/27/19 20:44 Morphine Sulfate 2 Mg Inj IV 08/27/19 20:33 2 mg STAT ONE Administration Morphine Sulfate Confirm 08/27/19 20:39 Morphine Sulfate 2 Mg Inj Administered 08/27/19 20:40 Dose 2 mg .ROUTE .STK-MED ONE Ondansetron HCl 4 mg 08/27/19 20:42 08/27/19 20:44 Zofran 4 Mg/2 Ml Vial IV 08/27/19 20:43 4 mg STAT ONE Administration Ondansetron HCl Confirm 08/27/19 20:41 Zofran 4 Mg/2 Ml Vial Administered 08/27/19 20:42 Dose 4 mg .ROUTE .STK-MED ONE Lab/Rad Data: Laboratory Result Diagrams 08/27/19 20:52 08/27/19 20:52 Laboratory Results 08/27/19 08/27/19 08/27/19 Range/Units 21:25 20:52 20:52 WBC (4.0-10.5) K/mm3 RBC (4.1-5.4) M/mm3 Hgb (12.0-16.0) gm/dl Hct (35-47) % MCV (78-100) fl MCH (26-32) pg MCHC (32-36) g/dl RDW (11.5-14.0) % Plt Count (150-450) K/mm3 MPV (7.5-11.0) fl Gran % (36.0-66.0) % Eos # (Auto) (0-0.5) Absolute Lymphs (auto) (1.0-4.6) Absolute Monos (auto) (0.0-1.3) Lymphocytes % (24.0-44.0) % Monocytes % (0.0-12.0) % Eosinophils % (0.00-5.0) % Basophils % (0.0-0.4) % Absolute Granulocytes (1.4-6.9) Basophils # (0-0.4) PT 11.0 (9.95-12.35) SECONDS INR 0.97 (0.8-3.0) APTT 31.8 (25.3-37.0) SECONDS Sodium (137-145) mmol/L Potassium (3.5-5.1) mmol/L Chloride (98-107) mmol/L Carbon Dioxide (22-30) mmol/L Anion Gap (5-15) MEQ/L BUN (7-17) mg/dL Creatinine (0.52-1.04) mg/dL Estimated GFR ML/MIN Glucose (74-106) mg/dL Calcium (8.4-10.2) mg/dL Magnesium (1.6-2.3) mg/dL Total Bilirubin (0.2-1.3) mg/dL AST (14-36) U/L ALT (0-35) U/L Alkaline Phosphatase (38-126) U/L Creatine Kinase (30-135) U/L Troponin I < 0.012 (0.000-0.034) ng/mL NT-Pro-B Natriuret Pep (0-900) pg/mL Serum Total Protein (6.3-8.2) g/dL Albumin (3.5-5.0) g/dL Urine Color STRAW (YELLOW) Urine Appearance CLEAR (CLEAR) Urine pH 5.0 (5-6) Ur Specific Hortense 1.005 (1.005-1.025) Urine Protein NEGATIVE (Negative) Urine Ketones NEGATIVE (NEGATIVE) Urine Blood SMALL (0-5) Jez/ul Urine Nitrite NEGATIVE (NEGATIVE) Urine Bilirubin NEGATIVE (NEGATIVE) Urine Urobilinogen NEGATIVE (0-1) mg/dL Ur Leukocyte Esterase SMALL (NEGATIVE) Urine WBC (Auto) 6-10 (0-5) /HPF Urine RBC (Auto) 0-2 (0-2) /HPF U Epithel Cells (Auto) NONE (FEW) /HPF Urine Bacteria (Auto) RARE (NEGATIVE) /HPF Urine Culture Reflexed YES (NO) Urine Glucose NEGATIVE (NEGATIVE) mg/dL 08/27/19 08/27/19 Range/Units 20:52 20:52 WBC 9.2 (4.0-10.5) K/mm3 RBC 3.45 L (4.1-5.4) M/mm3 Hgb 10.7 L (12.0-16.0) gm/dl Hct 32.6 L (35-47) % MCV 94.5 (78-100) fl MCH 31.0 (26-32) pg MCHC 32.8 (32-36) g/dl RDW 15.6 H (11.5-14.0) % Plt Count 303 (150-450) K/mm3 MPV 10.5 (7.5-11.0) fl Gran % 64.5 (36.0-66.0) % Eos # (Auto) 0.11 (0-0.5) Absolute Lymphs (auto) 2.35 (1.0-4.6) Absolute Monos (auto) 0.75 (0.0-1.3) Lymphocytes % 25.6 (24.0-44.0) % Monocytes % 8.2 (0.0-12.0) % Eosinophils % 1.2 (0.00-5.0) % Basophils % 0.5 (0.0-0.4) % Absolute Granulocytes 5.92 (1.4-6.9) Basophils # 0.05 (0-0.4) PT (9.95-12.35) SECONDS INR (0.8-3.0) APTT (25.3-37.0) SECONDS Sodium 135 L (137-145) mmol/L Potassium 4.2 (3.5-5.1) mmol/L Chloride 96 L (98-107) mmol/L Carbon Dioxide 31 H (22-30) mmol/L Anion Gap 12.2 (5-15) MEQ/L BUN 11 (7-17) mg/dL Creatinine 0.87 (0.52-1.04) mg/dL Estimated GFR > 60.0 ML/MIN Glucose 90 (74-106) mg/dL Calcium 9.2 (8.4-10.2) mg/dL Magnesium 2.0 (1.6-2.3) mg/dL Total Bilirubin 0.20 (0.2-1.3) mg/dL AST 22 (14-36) U/L ALT 11 (0-35) U/L Alkaline Phosphatase 101 (38-126) U/L Creatine Kinase 81 (30-135) U/L Troponin I (0.000-0.034) ng/mL NT-Pro-B Natriuret Pep 109 (0-900) pg/mL Serum Total Protein 7.3 (6.3-8.2) g/dL Albumin 4.0 (3.5-5.0) g/dL Urine Color (YELLOW) Urine Appearance (CLEAR) Urine pH (5-6) Ur Specific H[place] (1.005-1.025) Urine Protein (Negative) Urine Ketones (NEGATIVE) Urine Blood (0-5) Jez/ul Urine Nitrite (NEGATIVE) Urine Bilirubin (NEGATIVE) Urine Urobilinogen (0-1) mg/dL Ur Leukocyte Esterase (NEGATIVE) Urine WBC (Auto) (0-5) /HPF Urine RBC (Auto) (0-2) /HPF U Epithel Cells (Auto) (FEW) /HPF Urine Bacteria (Auto) (NEGATIVE) /HPF Urine Culture Reflexed (NO) Urine Glucose (NEGATIVE) mg/dL - Progress Progress: improved Discussed with : Jose Will see patient in: hospital (observation) Counseled pt/family regarding: lab results, diagnosis, rad results - Departure Departure Disposition: Observation Clinical Impression: Near syncope Fall Qualifiers: Encounter type: initial encounter Qualified Code(s): W19.XXXA - Unspecified fall, initial encounter Condition: Stable Critical Care Time: No Referrals: ADIN LEOS [Primary Care Provider] -
[2019-08-27] MEDS ORDERED: MORPHINE SULFATE 2 MG INJ IV ONE (20:32)
[2019-08-27] MEDS ORDERED: MORPHINE SULFATE 2 MG INJ ONE (20:39)
[2019-08-27] MEDS ORDERED: Zofran 4 MG/2 ML VIAL ONE (20:41)
[2019-08-27] MEDS ORDERED: Zofran 4 MG/2 ML VIAL IV ONE (20:42)
[2019-08-27] MEDS: Sodium Chloride 0.9% 1000 ML 1,000 ML IV SCH (20:44)
[2019-08-27 20:56] LABS: Absolute Neutrophil Ct (ANC) 5.92 (1.4-6.9); BASOPHIL % 0.5 % (0.0-0.4); Basophil (Absolute #) 0.05 (0-0.4); Eosinophil % 1.2 % (0.00-5.0); Eosinophil (Absolute #) 0.11 (0-0.5); Hematocrit 32.6 % (35-47); Hemoglobin 10.7 gm/dl (12.0-16.0); Lymphocyte (Absolute #) 2.35 (1.0-4.6); Lymphocytes % 25.6 % (24.0-44.0); Mean Cell Volume 94.5 fl (78-100); Mean Corpuscular Hgb Concent. 32.8 g/dl (32-36); Mean Platelet Volume 10.5 fl (7.5-11.0); Monocyte (Absolute #) 0.75 (0.0-1.3); Monocytes % 8.2 % (0.0-12.0); Neutrophil % 64.5 % (36.0-66.0); Platelet Count 303 K/mm3 (150-450); Red Blood Count 3.45 M/mm3 (4.1-5.4); Red Cell Distribution Width 15.6 % (11.5-14.0); White Blood Count 9.2 K/mm3 (4.0-10.5)
[2019-08-27 21:03] LABS: INR 0.97 (0.8-3.0)
[2019-08-27 21:06] LABS: PTT 31.8 SECONDS (25.3-37.0)
[2019-08-27 21:16] LABS: ALKALINE PHOSPHATASE 101 U/L (38-126); ANION GAP 12.2 MEQ/L (5-15); BLOOD UREA NITROGEN 11 mg/dL (7-17); CHLORIDE 96 mmol/L (98-107); CK-Creatinine Phosphokinase 81 U/L (30-135); Calcium 9.2 mg/dL (8.4-10.2); Carbon Dioxide 31 mmol/L (22-30); Creatinine 1 0.87 mg/dL (0.52-1.04); Glucose 90 mg/dL (74-106); NT PRO BNP 109 pg/mL (0-900); Potassium 4.2 mmol/L (3.5-5.1); SGOT/AST 22 U/L (14-36); SGPT/ALT 11 U/L (0-35); SODIUM 135 mmol/L (137-145); Total Protein 7.3 g/dL (6.3-8.2)
[2019-08-27 21:47] LABS: Appearance CLEAR (CLEAR); Bacteria RARE /HPF (NEGATIVE); Bilirubin NEGATIVE (NEGATIVE); Blood SMALL Ery/ul (0-5); Glucose NEGATIVE (NEGATIVE); Ketones NEGATIVE (NEGATIVE); Leukocyte Esterase SMALL (NEGATIVE); Nitrite NEGATIVE (NEGATIVE); Protein,Urine Dip NEGATIVE (Negative); RBC 0-2 /HPF (0-2); Specific Gravity 1.005 (1.005-1.025); Urobilinogen NEGATIVE mg/dL (0-1)
[2019-08-28] MEDS ORDERED: PROVENTIL COMMON CANISTER IH PRN (01:07)
[2019-08-28] MEDS ORDERED: PROVENTIL 2.5 MG/3 ML NEB IH PRN (01:08)
[2019-08-28] MEDS ORDERED: MORPHINE SULFATE 2 MG INJ ONE (01:15)
[2019-08-28] MEDS ORDERED: Desyrel 150 MG ONE (01:32)
[2019-08-28] MEDS ORDERED: NORCO 5/325 MG ONE (01:32)
[2019-08-28] MEDS ORDERED: Desyrel 150 MG PO ONE (01:34)
[2019-08-28] MEDS ORDERED: NORCO 5/325 MG PO SCH (01:36)
[2019-08-28] MEDS: Sodium Chloride 0.9% 1000 ML 1,000 ML IV SCH ×2 (07:35→18:12)
[2019-08-28] MEDS: Advair Hfa 115/21 Common canister IH SCH ×2 (07:36→17:15)
--- NOTE | 2019-08-28 08:43 | PCM.HP ---
History of Present Illness - Chief Complaint Chief Complaint: near sycope History of Present Illness: is a 69 year old female pt of mine from [facility] with PMHx DM, COPD, BPPV, Depression, HTN, GERI, OA, and RA who was admitted through ER after one presyncopal and one syncopal episode. She had been up closing her draperies, turned around, and felt extremely weak. Fell to the ground, crawled to the phone, and called her daughter. After daughter came, pt tried to rise to give her daughter a hug and had a syncopal episode (her daughter caught her). About 3-4 wks ago, pt had a fell at home, thought she just lost her balance. Resulted in L wrist fx and L rib fx. In ER, her labs were nonacute. Troponins have been neg x 3. UA 6-10 WBC,0-2 RBC, neg nitrites. - Review of Systems Constitutional: Weakness Abdominal/Gastrointestinal: Diarrhea, Constipation (chronic intermittent d/ constipation) Neurological: Other (syncope) All Other Systems: Reviewed and Negative Medications & Allergies Home Medications: Home Medication List Albuterol Sulfate [Ventolin Hfa] 2 puffs IH UD PRN 08/27/19 [History Confirmed 08/28/19] Ascorbic Acid 500 mg [Vitamin C 500 MG] 500 mg PO DAILY 08/27/19 [History Confirmed 08/27/19] Betamethasone Valerate 2 gm TP DAILY PRN 08/27/19 [History Confirmed 08/27/19] Budesonide/Formoterol Fumarate [Symbicort 80-4.5 Mcg Inhaler] 2 puffs IH BID [History Confirmed 08/28/19] Cholecalciferol (Vitamin D3) [Vitamin D3] 1,000 unit PO DAILY 08/27/19 [History Confirmed 08/27/19] Clobetasol Propionate/Emoll [Clobetasol Emollient 0.05% Crm] 1 gm TP DAILY PRN 08/27/19 [History Confirmed 08/27/19] Clopidogrel Bisulfate 75 mg [PLAVIX 75 MG Tablet] 300 mg PO DAILY [History Confirmed 08/27/19] Cyanocobalamin (Vitamin B-12) [B-12] 1,000 mcg PO DAILY 08/27/19 [History Confirmed 08/27/19] Cyclobenzaprine HCl 10 mg [Cyclobenzaprine 10 MG] 10 mg PO HS 08/27/19 [ History Confirmed 08/27/19] Furosemide 20 mg [Lasix 20 mg] 10 mg PO DAILY 08/27/19 [History Confirmed 08/27/19] Hydrocodone/APAP 5-325 Tab^^^ [[place] 5-325 Tablet^^^] 1 tab PO TID PRN 08/27/19 [History Confirmed 08/27/19] Hydroxychloroquine Sulfate 200 mg PO BID 08/27/19 [History Confirmed 08/27/19] Levothyroxine Sodium 50 Mcg [Synthroid 50 Mcg] 50 mcg PO DAILY 08/27/19 [ History Confirmed 08/27/19] Lisinopril 5 mg [Zestril 5 MG] 2.5 mg PO HS 08/27/19 [History Confirmed ] Magnesium Oxide 400 mg [Mag-Ox 400] 400 mg PO BID 08/27/19 [History Confirmed 08/27/19] Metoprolol Tartrate 25 mg [Lopressor 25MG Tab] 25 mg PO HS 08/27/19 [ History Confirmed 08/27/19] Montelukast Sodium 10 mg [Singulair 10 MG] 10 mg PO DAILY 08/27/19 [History Confirmed 08/27/19] [place]-3 Fatty Acids/Fish Oil [Fish Oil 1,000 mg Capsule] 1,200 mg PO DAILY 08/27/19 [History Confirmed 08/27/19] PANTOPRAZOLE 40 mg Tablet [Protonix 40MG Tablet] 40 mg PO QAM 08/27/19 [ History Confirmed 08/27/19] Potassium Chloride [Klor-Con] 40 meq PO BID 08/27/19 [History Confirmed 08/27/19 ] Pregabalin [Lyrica 150Mg] 150 mg PO BID 08/27/19 [History Confirmed 08/27/19] Simvastatin 40 mg PO HS 08/27/19 [History Confirmed 08/27/19] Trazodone HCl 150 mg PO HS 08/27/19 [History Confirmed 08/27/19] Venlafaxine HCl [Effexor Xr] 225 mg PO DAILY 08/27/19 [History Confirmed ] glyBURIDE [Glyburide] 0.625 mg PO DAILY 08/27/19 [History Confirmed 08/27/19] Allergies/Adverse Reactions: Allergies Allergy/AdvReac Type Severity Reaction Status Date / Time Penicillins Allergy Mild itching Verified 08/27/19 20:34 and hives meperidine HCl [From Demerol] Allergy Unknown Verified 08/27/19 20:34 - Past Medical History Past Medical History: Yes Neurological History: Peripheral Neuropathy, TIA ENT History: No Pertinent History Cardiac History: High Cholesterol, Hypertension Respiratory History: Asthma, COPD Endocrine Medical History: Diabetes Type I, Hypothyroidism Musculoskelatal History: Fibromyalgia GI Medical History: Colitis, Diverticulitis, Esophageal Disorder, GERD, Gallbladder Disease, GI Bleed, Hemorrhoids, Irritable Bowel, Polyps History: Other Pyscho-Social History: Anxiety, Bipolar, Depression, Panic Disorder Reproductive Disorders: No Pertinent History Comment: BIPOLAR DEPRESSION, GERD,. RIGHT SHOULDER SURGERY FOR RC REPAIR S/P FALL 2013. RIGHT TOTAL KNEE [id number] YEARS AGO. FUSION CERVICAL SPINE >20 YEARS AGO. - Female History Are you now?: No - Past Surgical History Past Surgical History: Yes Neuro Surgical History: No Pertinent History Cardiac History: Cardiac Catheterization Respiratory Surgery: No Pertinent History GI Surgical History: Cholecystectomy Genitourinary Surgical Hx: No Pertinent History Musculskeletal Surgical Hx: Joint Replacement, Other Female Surgical History: Hysterectomy Other Surgical History: CERIVCAL FUSION AND 5TH,6TH VETEBRAES FUSED. TOTAL RIGHT KNEE, right shoulder rotator cuff and right arm disloation, repair bicep muscle and tendon of righ shoulder - Social History Smoking Status: Never smoker Exposure to second hand smoke: No Alcohol: None Drug Use: none Significant Family History: diabetes, hypertension - Physical Exam Vital Signs: Vital Signs - 24 hr Temp Pulse Resp BP Pulse Ox 08/28/19 08:00 97.4 F 70 20 109/62 98 08/28/19 07:37 71 16 96 08/28/19 04:00 98.0 F 71 16 85/51 97 08/28/19 00:37 86 18 96 08/27/19 23:41 98.1 F 81 20 122/79 98 08/27/19 22:41 77 18 95/61 96 08/27/19 22:16 80 25 H 96/58 94 L 08/27/19 22:06 94 L 08/27/19 21:49 80 22 102/66 94 L 08/27/19 20:38 94 L 08/27/19 20:08 98.7 F 86 16 129/73 94 L General Appearance: no apparent distress, alert, obese Neurologic Exam: oriented x 3, cooperative Eye Exam: eyes nml inspection Ears, Nose, Throat Exam: moist mucous membranes Neck Exam: normal inspection, non-tender, No lymphadenopathy Respiratory Exam: normal breath sounds, crackles/rales (faint RLL), No rhonchi, No wheezing Cardiovascular Exam: regular rate/rhythm, normal heart sounds, No murmur Gastrointestinal/Abdomen Exam: soft, normal bowel sounds, tenderness (epigastrum ), No distention, No mass, No guarding, No rebound Back Exam: normal inspection, No rash Extremity Exam: normal inspection, No pedal edema, No swelling Skin Exam: normal color, warm, dry, No rash Results - Labs Lab/Micro Results: Lab Results-Last 24 Hours 08/27/19 08/27/19 08/27/19 Range/Units 00:02 20:52 20:52 WBC 9.2 (4.0-10.5) K/mm3 RBC 3.45 L (4.1-5.4) M/mm3 Hgb 10.7 L (12.0-16.0) gm/dl Hct 32.6 L (35-47) % MCV 94.5 (78-100) fl MCH 31.0 (26-32) pg MCHC 32.8 (32-36) g/dl RDW 15.6 H (11.5-14.0) % Plt Count 303 (150-450) K/mm3 MPV 10.5 (7.5-11.0) fl Gran % 64.5 (36.0-66.0) % Eos # (Auto) 0.11 (0-0.5) Absolute Lymphs (auto) 2.35 (1.0-4.6) Absolute Monos (auto) 0.75 (0.0-1.3) Lymphocytes % 25.6 (24.0-44.0) % Monocytes % 8.2 (0.0-12.0) % Eosinophils % 1.2 (0.00-5.0) % Basophils % 0.5 (0.0-0.4) % Absolute Granulocytes 5.92 (1.4-6.9) Basophils # 0.05 (0-0.4) PT (9.95-12.35) SECONDS INR (0.8-3.0) APTT (25.3-37.0) SECONDS Sodium 135 L (137-145) mmol/L Potassium 4.2 (3.5-5.1) mmol/L Chloride 96 L (98-107) mmol/L Carbon Dioxide 31 H (22-30) mmol/L Anion Gap 12.2 (5-15) MEQ/L BUN 11 (7-17) mg/dL Creatinine 0.87 (0.52-1.04) mg/dL Estimated GFR > 60.0 ML/MIN Glucose 90 (74-106) mg/dL Calcium 9.2 (8.4-10.2) mg/dL Magnesium 2.0 (1.6-2.3) mg/dL Total Bilirubin 0.20 (0.2-1.3) mg/dL AST 22 (14-36) U/L ALT 11 (0-35) U/L Alkaline Phosphatase 101 (38-126) U/L Creatine Kinase 81 (30-135) U/L Troponin I < 0.012 (0.000-0.034) ng/mL NT-Pro-B Natriuret Pep 109 (0-900) pg/mL Serum Total Protein 7.3 (6.3-8.2) g/dL Albumin 4.0 (3.5-5.0) g/dL Urine Color (YELLOW) Urine Appearance (CLEAR) Urine pH (5-6) Ur Specific [place] (1.005-1.025) Urine Protein (Negative) Urine Ketones (NEGATIVE) Urine Blood (0-5) Jez/ul Urine Nitrite (NEGATIVE) Urine Bilirubin (NEGATIVE) Urine Urobilinogen (0-1) mg/dL Ur Leukocyte Esterase (NEGATIVE) Urine WBC (Auto) (0-5) /HPF Urine RBC (Auto) (0-2) /HPF U Epithel Cells (Auto) (FEW) /HPF Urine Bacteria (Auto) (NEGATIVE) /HPF Urine Culture Reflexed (NO) Urine Glucose (NEGATIVE) mg/dL 08/27/19 08/27/19 08/27/19 Range/Units 20:52 20:52 21:25 WBC (4.0-10.5) K/mm3 RBC (4.1-5.4) M/mm3 Hgb (12.0-16.0) gm/dl Hct (35-47) % MCV (78-100) fl MCH (26-32) pg MCHC (32-36) g/dl RDW (11.5-14.0) % Plt Count (150-450) K/mm3 MPV (7.5-11.0) fl Gran % (36.0-66.0) % Eos # (Auto) (0-0.5) Absolute Lymphs (auto) (1.0-4.6) Absolute Monos (auto) (0.0-1.3) Lymphocytes % (24.0-44.0) % Monocytes % (0.0-12.0) % Eosinophils % (0.00-5.0) % Basophils % (0.0-0.4) % Absolute Granulocytes (1.4-6.9) Basophils # (0-0.4) PT 11.0 (9.95-12.35) SECONDS INR 0.97 (0.8-3.0) APTT 31.8 (25.3-37.0) SECONDS Sodium (137-145) mmol/L Potassium (3.5-5.1) mmol/L Chloride (98-107) mmol/L Carbon Dioxide (22-30) mmol/L Anion Gap (5-15) MEQ/L BUN (7-17) mg/dL Creatinine (0.52-1.04) mg/dL Estimated GFR ML/MIN Glucose (74-106) mg/dL Calcium (8.4-10.2) mg/dL Magnesium (1.6-2.3) mg/dL Total Bilirubin (0.2-1.3) mg/dL AST (14-36) U/L ALT (0-35) U/L Alkaline Phosphatase (38-126) U/L Creatine Kinase (30-135) U/L Troponin I < 0.012 (0.000-0.034) ng/mL NT-Pro-B Natriuret Pep (0-900) pg/mL Serum Total Protein (6.3-8.2) g/dL Albumin (3.5-5.0) g/dL Urine Color STRAW (YELLOW) Urine Appearance CLEAR (CLEAR) Urine pH 5.0 (5-6) Ur Specific [place] 1.005 (1.005-1.025) Urine Protein NEGATIVE (Negative) Urine Ketones NEGATIVE (NEGATIVE) Urine Blood SMALL (0-5) Jez/ul Urine Nitrite NEGATIVE (NEGATIVE) Urine Bilirubin NEGATIVE (NEGATIVE) Urine Urobilinogen NEGATIVE (0-1) mg/dL Ur Leukocyte Esterase SMALL (NEGATIVE) Urine WBC (Auto) 6-10 (0-5) /HPF Urine RBC (Auto) 0-2 (0-2) /HPF U Epithel Cells (Auto) NONE (FEW) /HPF Urine Bacteria (Auto) RARE (NEGATIVE) /HPF Urine Culture Reflexed YES (NO) Urine Glucose NEGATIVE (NEGATIVE) mg/dL 08/28/19 Range/Units 03:00 WBC (4.0-10.5) K/mm3 RBC (4.1-5.4) M/mm3 Hgb (12.0-16.0) gm/dl Hct (35-47) % MCV (78-100) fl MCH (26-32) pg MCHC (32-36) g/dl RDW (11.5-14.0) % Plt Count (150-450) K/mm3 MPV (7.5-11.0) fl Gran % (36.0-66.0) % Eos # (Auto) (0-0.5) Absolute Lymphs (auto) (1.0-4.6) Absolute Monos (auto) (0.0-1.3) Lymphocytes % (24.0-44.0) % Monocytes % (0.0-12.0) % Eosinophils % (0.00-5.0) % Basophils % (0.0-0.4) % Absolute Granulocytes (1.4-6.9) Basophils # (0-0.4) PT (9.95-12.35) SECONDS INR (0.8-3.0) APTT (25.3-37.0) SECONDS Sodium (137-145) mmol/L Potassium (3.5-5.1) mmol/L Chloride (98-107) mmol/L Carbon Dioxide (22-30) mmol/L Anion Gap (5-15) MEQ/L BUN (7-17) mg/dL Creatinine (0.52-1.04) mg/dL Estimated GFR ML/MIN Glucose (74-106) mg/dL Calcium (8.4-10.2) mg/dL Magnesium (1.6-2.3) mg/dL Total Bilirubin (0.2-1.3) mg/dL AST (14-36) U/L ALT (0-35) U/L Alkaline Phosphatase (38-126) U/L Creatine Kinase (30-135) U/L Troponin I < 0.012 (0.000-0.034) ng/mL NT-Pro-B Natriuret Pep (0-900) pg/mL Serum Total Protein (6.3-8.2) g/dL Albumin (3.5-5.0) g/dL Urine Color (YELLOW) Urine Appearance (CLEAR) Urine pH (5-6) Ur Specific [place] (1.005-1.025) Urine Protein (Negative) Urine Ketones (NEGATIVE) Urine Blood (0-5) Jez/ul Urine Nitrite (NEGATIVE) Urine Bilirubin (NEGATIVE) Urine Urobilinogen (0-1) mg/dL Ur Leukocyte Esterase (NEGATIVE) Urine WBC (Auto) (0-5) /HPF Urine RBC (Auto) (0-2) /HPF U Epithel Cells (Auto) (FEW) /HPF Urine Bacteria (Auto) (NEGATIVE) /HPF Urine Culture Reflexed (NO) Urine Glucose (NEGATIVE) mg/dL - Radiology Impressions Radiology Exams & Impressions: Radiology Procedures Category Date Time Status CERVICAL SPINE WO CONTRAST [CT] Stat Exams 08/27/19 21:01 Taken CHEST 1 VIEW (PORTABLE) Stat Exams 08/27/19 20:34 Taken ECHO W/2D AND DOPPLER [US] Routine Exams 08/28/19 Ordered HEAD WITHOUT CONTRAST [CT] Stat Exams 08/27/19 20:35 Taken - Other Procedures and Tests Respiratory Therapy 08/28/19 01:09 Oxygen NASAL CANNULA 2 lpm Peak Expiratory Flow Rate ONCE Respiratory Therapy Assessment DAILY Assessment/Plan (1) Syncope Current Visit: Yes Status: Acute Qualifiers: Syncope type: unspecified Qualified Code(s): R55 - Syncope and collapse Assessment & Plan: will get echo, carotid dopplers, orthostats, consult cardiology with this second fall in a month. Code(s): R55 - SYNCOPE AND COLLAPSE (2) Distal radius fracture, left Current Visit: No Status: Acute Code(s): S52.502A - UNSP FRACTURE OF THE LOWER END OF LEFT RADIUS, INIT (3) Type 2 diabetes mellitus Current Visit: No Status: Chronic Qualifiers: Diabetes mellitus superintendent terminal insulin use: without long-term use
--- NOTE | 2019-08-28 08:46 | XRAY ---
Indication: Pain following fall. Patient reports left rib fracture 2 weeks ago. Comparison: December 19, 2015. Portable chest demonstrates normal heart and lungs. Bony thorax demonstrates new minimally displaced left lateral 7 rib fracture.
--- NOTE | 2019-08-28 08:49 | XRAY ---
Indication: Near syncope. Head injury following fall. Weakness and dizziness. Multiple contiguous axial images obtained through the head without contrast. Comparison: January 04, 2012. Again normal appearing brain parenchyma, ventricles, and bony calvarium. Visualized paranasal sinuses and mastoid air cells are clear. Impression: Normal CT head without contrast exam. Comment: Preliminary interpretation was made by [facility]. No critical discrepancy.
--- NOTE | 2019-08-28 08:52 | XRAY ---
Indication: Neck pain. Near syncope. Head injury following fall. Weakness and dizziness. Multiple contiguous axial images obtained through the cervical spine. Sagittal and coronal reformatted images obtained. Comparison: None. Axial images negative for acute fracture, suspicious bony lesions, or spinal canal stenosis. There is mild C4-C7 degenerative endplate spurring. Also mild/moderate multilevel bilateral degenerative facet hypertrophy and atlantoaxial degenerative arthropathy. Sagittal and coronal reformatted images demonstrates cervical lordotic straightening, positional versus paraspinal spasm. 2-3 mm anterolisthesis of C4 on C5. C5-C6 fusion presumed postsurgical. No acute compression fracture or jumped facet. Normal appearing craniocervical junction. Impression: 1. Cervical lordotic straightening, positional versus paraspinal spasm. Negative for acute fracture. 2. Multilevel degenerative spondylosis including minimal grade 1 C4 spondylolisthesis. 3. C5-C6 fusion.. Comment: Preliminary interpretation was made by [facility]. No critical discrepancy.
[2019-08-28] MEDS ORDERED: NORCO 5/325 MG PO PRN (09:29)
[2019-08-28] MEDS ORDERED: [UNRECOGNIZED DRUG - OTHER] TP PRN (09:32)
[2019-08-28] MEDS ORDERED: CLOBETASOL PROPIONATE TP PRN (09:32)
[2019-08-28] MEDS ORDERED: BETAMETHASONE VALERATE TP PRN (09:32)
[2019-08-28] MEDS ORDERED: SYNTHROID 50 MCG PO SCH (10:00)
[2019-08-28] MEDS ORDERED: NON-FORMULARY ITEM (Budesonide/Formoterol Fumarate [Symbicort 80-4.5 Mcg Inhaler] 2 PUFFS) IH SCH (10:00)
[2019-08-28] MEDS ORDERED: PLAVIX 75 MG Tablet PO SCH ×2 (10:00→11:00)
[2019-08-28] MEDS ORDERED: NON-FORMULARY ITEM (Venlafaxine Hcl [Effexor Xr] 225 MG) PO SCH (10:00)
[2019-08-28] MEDS ORDERED: Protonix 40MG Tablet PO SCH (10:00)
[2019-08-28] MEDS ORDERED: Effexor XR 75 MG PO SCH (10:00)
[2019-08-28] MEDS ORDERED: Singulair 10 MG PO SCH (10:00)
[2019-08-28] MEDS ORDERED: NON-FORMULARY ITEM (Hydroxychloroquine Sulfate [Hydroxychloroquine Sulfate] 0 MG) PO SCH (10:00)
[2019-08-28] MEDS ORDERED: BETAMETHASONE DIPROPIONATE TOP PRN (10:22)
[2019-08-28] MEDS: LYRICA 150MG PO SCH ×2 (10:27→23:07)
[2019-08-28] MEDS: MAG-OX 400 PO SCH ×2 (10:27→23:06)
[2019-08-28] MEDS ORDERED: MEDICATION INTERVENTION MC SCH (10:30)
[2019-08-28] MEDS: NORCO 5/325 MG PO PRN (19:57)
[2019-08-28] MEDS ORDERED: ZOCOR 20MG PO SCH (22:00)
[2019-08-28] MEDS ORDERED: Cyclobenzaprine 10 MG PO SCH (22:00)
[2019-08-28] MEDS ORDERED: NON-FORMULARY ITEM (Simvastatin [Simvastatin] 40 MG) PO SCH (22:00)
[2019-08-28] MEDS: Desyrel 150 MG PO SCH ×2 (23:06→23:17)
[2019-08-29 05:35] VITALS: O2SAT 98
[2019-08-29] MEDS: Advair Hfa 115/21 Common canister IH SCH (07:03)
[2019-08-29 07:20] VITALS: BP 124/64; PULSE 71
[2019-08-29] MEDS: NORCO 5/325 MG PO PRN (08:07)
--- NOTE | 2019-08-29 08:54 | PCM.DS ---
Discharge Summary Date of Admission: 08/27/19 22:55 Admitting Physician: ADIN LEOS Consults: Consults on Case 08/28/19 08:36 Consult Cardiology ROUTINE Primary Care Provider: ADIN LEOS Allergies Allergies Penicillins Allergy (Mild, Verified 08/27/19 20:34) itching and hives meperidine HCl [From Demerol] Allergy (Unknown, Verified 08/27/19 20:34) "MAKES DEBORA" Hospital Summary - Hospital Course Hospital Course: Pt admitted through ER with syncopal episode following a presyncopal episode. ct head neg. echo and carotid dopplers pending. Not orthostatic. She had some low BP and her antihypertensives have been held; bp still 102-119 systolic. Cardiology was consulted as this was her second episode of a fall ( fractured wrist and ribs a few weeks ago); they agreed with holding the meds and testing as done. Pt to f/u with Dr. Kristel sweeney. Will f/u with me in 1 wk and hold bp meds until then. Her O2 sat dropped to 88-89% overnight; will get home sleep study. - Vitals & Intake/Output Vital Signs: Vital Signs Temperature 97.7 F 08/29/19 07:19 Pulse Rate 71 08/29/19 07:19 Respiratory Rate 20 08/29/19 08:00 Blood Pressure 124/64 08/29/19 07:19 O2 Sat by Pulse Oximetry 98 08/29/19 07:19 Intake & Output: Intake & Output 08/26/19 08/27/19 08/28/19 08/29/19 11:59 11:59 11:59 11:59 Intake Total 1606 2701 Output Total 500 3500 Balance 1106 -799 Weight 86.4 kg - Lab Result Diagrams: 08/27/19 20:52 08/27/19 20:52 Micro Results-Entire Visit: Microbiology 08/27/19 21:25 Urine Culture - Preliminary Urine, Void GRAM NEGATIVE ID AND SENSITIVITY PENDING - Radiology Exams Ordered Rad Exams-Entire Visit: Radiology Procedures Category Date Time Status CERVICAL SPINE WO CONTRAST [CT] Stat Exams 08/27/19 21:01 Completed CHEST 1 VIEW (PORTABLE) Stat Exams 08/27/19 20:34 Completed ECHO W/2D AND DOPPLER [US] Routine Exams 01/27/20 10:13 Taken HEAD WITHOUT CONTRAST [CT] Stat Exams 08/27/19 20:35 Completed - Procedures and Test Procedures and Tests throughout Hospitalization: Therapy Orders & Screens 08/28/19 00:13 RT Screen per Nursing Assess Comment: Protocol Order Physician Instructions: Greater than 3 points order RT Admission Screen Reason For Exam: Triggered on Admission Diagnosis: near sycope Diagnosis: near sycope Pneumonia: No Home O2: No Asthma: Yes CHF: No Home CPAP/BIPAP: No Home Nebs/MDI: Yes Total Points: 9 08/28/19 01:06 Respiratory MDI BID Comment: ADVAIR 115/ 2 PUFFS BID Diagnosis: near sycope 08/28/19 01:09 Oxygen NASAL CANNULA 2 lpm Comment: Diagnosis: near sycope Peak Expiratory Flow Rate ONCE Comment: Reason For Exam: Diagnosis: near sycope Respiratory Therapy Assessment DAILY Comment: Diagnosis: near sycope 08/29/19 08:49 Home Sleep Study ONCE Comment: Diagnosis: near sycope Discharge Exam General Appearance: no apparent distress, alert, obese Neurologic Exam: oriented x 3, cooperative Eye Exam: eyes nml inspection Ears, Nose, Throat Exam: moist mucous membranes Neck Exam: normal inspection Respiratory Exam: normal breath sounds, lungs clear, No crackles/rales, No rhonchi, No wheezing Cardiovascular Exam: regular rate/rhythm, normal heart sounds, No murmur Extremity Exam: No pedal edema, No swelling Skin Exam: normal color, warm, dry, No rash Final Diagnosis/Problem List - Final Discharge Diagnosis/Problem (1) Syncope Current Visit: Yes Status: Acute Assessment & Plan: Likely due to hypotension; hold BP meds until our visit next week. Has been up out of bed ok here. Code(s): R55 - SYNCOPE AND COLLAPSE (2) Distal radius fracture, left Current Visit: No Status: Acute Code(s): S52.502A - UNSP FRACTURE OF THE LOWER END OF LEFT RADIUS, INIT (3) Type 2 diabetes mellitus Current Visit: No Status: Chronic (4) Rib fracture Current Visit: Yes Status: Acute Code(s): S22.39XA - FRACTURE OF ONE RIB, UNSP SIDE, INIT FOR CLOS FX - Discharge Disposition: Home, Self-Care Condition: Good Prescriptions: Continue Montelukast Sodium 10 mg [Singulair 10 MG] 10 mg PO DAILY Budesonide/Formoterol Fumarate [Symbicort 80-4.5 Mcg Inhaler] 2 puffs IH BID Hydroxychloroquine Sulfate 200 mg PO BID Trazodone HCl 150 mg PO HS Albuterol Sulfate [Ventolin Hfa] 2 puffs IH UD PRN PRN Reason: Shortness Of Breath/Wheezing PANTOPRAZOLE 40 mg Tablet [Protonix 40MG Tablet] 40 mg PO QAM Clopidogrel Bisulfate 75 mg [PLAVIX 75 MG Tablet] 75 mg PO DAILY Cyanocobalamin (Vitamin B-12) [B-12] 1,000 mcg PO DAILY Magnesium Oxide 400 mg [Mag-Ox 400] 400 mg PO BID Ascorbic Acid 500 mg [Vitamin C 500 MG] 500 mg PO DAILY Simvastatin 40 mg PO HS Potassium Chloride [Klor-Con] 40 meq PO BID Furosemide 20 mg [Lasix 20 mg] 10 mg PO DAILY Levothyroxine Sodium 50 Mcg [Synthroid 50 Mcg] 50 mcg PO DAILY glyBURIDE [Glyburide] 0.625 mg PO DAILY Cyclobenzaprine HCl 10 mg [Cyclobenzaprine 10 MG] 10 mg PO HS [place]-3 Fatty Acids/Fish Oil [Fish Oil 1,000 mg Capsule] 1,200 mg PO DAILY Venlafaxine HCl [Effexor Xr] 225 mg PO DAILY Pregabalin [Lyrica 150Mg] 150 mg PO BID Cholecalciferol (Vitamin D3) [Vitamin D3] 1,000 unit PO DAILY Clobetasol Propionate/Emoll [Clobetasol Emollient 0.05% Crm] 1 gm TP DAILY PRN PRN Reason: Redness/Irritation Betamethasone Valerate 2 gm TP DAILY PRN PRN Reason: Redness/Irritation Hydrocodone/APAP 5-325 Tab^^^ [[place] 5-325 Tablet^^^] 1 tab PO TID PRN PRN Reason: Pain Discontinued Lisinopril 5 mg [Zestril 5 MG] 2.5 mg PO HS Metoprolol Tartrate 25 mg [Lopressor 25MG Tab] 25 mg PO HS Follow up with: ADIN LEOS [Primary Care Provider] - 1 Week
== END 2019-08-29 10:10 | disposition home or self-care (01) ==
LOC: ED 20:05 → MED SURG 22:55
PROVIDERS: ADMIT Family Medicine; ATTEND Family Medicine
DX: R55 Syncope and collapse (principal); E86.0 Dehydration; I95.9 Hypotension, unspecified; E11.9 Type 2 diabetes mellitus without complications; Q24.5 Malformation of coronary vessels; S52.502A Unspecified fracture of the lower end of left radius, initial encounter for closed fracture; S22.32XA Fracture of one rib, left side, initial encounter for closed fracture; Z79.01 Long term (current) use of anticoagulants; Z79.899 Other long term (current) drug therapy; M06.9 Rheumatoid arthritis, unspecified; I10 Essential (primary) hypertension; J44.9 Chronic obstructive pulmonary disease, unspecified; E78.00 Pure hypercholesterolemia, unspecified; E03.9 Hypothyroidism, unspecified; Z86.73 Personal history of transient ischemic attack (TIA), and cerebral infarction without residual deficits
CPT/HCPCS: 36000; 36415; 70450; 71045; 72125; 80053; 81001; 82550; 83735; 83880; 84484; 85025; 85610; 85730; 87077; 87086; 87186; 93005; 93041; 93268; 93306; 94640; 94760; 96374; 96375; 99285; G0378; G0398; Q3014; 95806; J2270; J2405; A9270-GY

== ENCOUNTER 2020-01-16 09:56 | Day surgery (SDC) | payer MEDICARE ==
[2012-06-02 14:05] VITALS: BP 115/53
[2020-01-16] MEDS ORDERED: TETRACAINE 0.5% STERI-UNIT SOL OP ONE ×2 (10:00)
[2020-01-16] MEDS ORDERED: Ak-Dilate OPHTHALMIC*** 1.065 ML, Cyclogyl 1% OPHTH SOL 5 ML 1.065 ML, GATIFLOXACIN 0.5... OP ONE ×4 (10:00)
[2020-01-16] MEDS ORDERED: Lactated Ringers 1,000 ML IV SCH (10:00)
[2020-01-16] MEDS ORDERED: Lactated Ringers 1,000 ML IV ONE (10:37)
[2020-01-16] MEDS ORDERED: SUBLIMAZE 100 MCG/2 ML ONE (11:19)
[2020-01-16] MEDS ORDERED: Versed 2 MG/2 ML Injection ONE (11:19)
[2020-01-16] MEDS ORDERED: ACETAZOLAMIDE 250 MG TABLET PO ONE (12:00)
[2020-01-16] MEDS ORDERED: Zofran 4 MG/2 ML VIAL IV PRN (12:00)
[2020-01-16] MEDS ORDERED: Epinephrine Preservative Free 1 MG/ML INTRAOP ONE (12:00)
[2020-01-16] MEDS ORDERED: NON-FORMULARY ITEM OP ONE (12:00)
[2020-01-16] MEDS ORDERED: BSS 500 ML, Fortaz/Tazicef 1 GM** 0.2 G IO ONE ×2 (12:00)
[2020-01-16] MEDS ORDERED: LIDOCAINE HCL 1% 50 MG/5 ML VL PF IJ ONE (12:00)
[2020-01-16] MEDS ORDERED: BETADINE 5% OPHTHALMIC 30 ML OP ONE (12:00)
[2020-01-16 15:20] LABS: INR 1.06 (0.8-3.0)
--- NOTE | 2020-01-19 15:05 | OP ---
DATE/TIME OF OPERATION: 01/16/2020 1123 DATE/TIME DICTATED: 01/19/2020 1333 PREOPERATIVE DIAGNOSIS: Senile cataract of left eye. POSTOPERATIVE DIAGNOSIS: Senile cataract of left eye. SURGEON: Jean Pierre Velasquez MD PRODUCTION MACHINIST: None. OPERATION: Cataract extraction of left eye with an intraocular lens implant. STANDARD ___X__ COMPLEX ANESTHESIA: MAC. ___X___ Monitored anesthesia care in combination with topical and intra-cameral anesthesia (because of the established specific risk of reflux, arrhythmias, or an anxiety attack associated with ocular manipulation as well as difficulty of the speeder machine operator to manage such potentially catastrophic events while simultaneously attempting to complete the surgical procedure, it was deemed necessary for the patient's safety to have an anesthesiologist or a nurse flat bed operator present during the procedure whenever possible. The anesthesiologist or the nurse flat bed operator was utilized to monitor and regulate the intravenous sedation of the patient, so the patient was cooperative, relaxed, and comfortable). Topical anesthesia using Tetracaine eye drops together with intra cameral anesthesia using Lidocaine 1% MPF. The nurse was utilized to monitor the patient. ANESTHESIA PROVIDER: Meliton Burks CRNA. COMPLICATIONS: None. BLOOD LOSS: None. INDICATIONS: The patient is undergoing cataract surgery in the hopes of eliminating the visual complaints and difficulty. PROCEDURE: After arriving at the facility's outpatient surgery area, an IV was started; the patient was given 5 mg of p.o. Versed. (If an anesthesia provider was not monitoring the patient) The patient was then given topical anesthetic Tetracaine eye drops. A cotton pellet was soaked into a solution of a combination of Zymaxid 0.5%, Kirby-Synephrine 2.5% and Ocufen (other drops might have been substituted referenced in the patient's record). The pellet was inserted by the RN into the lower conjunctival cul-de-sac with a sterile forceps and left for 20 minutes. The pellet was then removed by the RN with a sterile forceps before taking the patient to the operating room. The preoperative area nurse identified the patient and marked the correct eye to be operated on. I identified the correct eye to be operated on and marked it appropriately in the outpatient surgery area. The patient was then taken into the operating room. Tetracaine eye drops were installed again in the correct eye. The eyelids and the lashes and the lid margins were scrubbed with Betadine solution. One drop of the diluted Betadine solution was placed in the conjunctival cul-de-sac for 45 seconds and then was irrigated. A drop of Tetracaine Gel was placed in the conjunctival cul-de-sac. The patient's forehead was taped to secure it during the procedure. The patient was monitored. The patient was then draped in the usual way for this procedure. An eye speculum was used to separate the eyelids. The eye was then fixated and a temporal 2.5 mm incision was made in the clear cornea temporally at the limbus. Through the incision, 0.25 cc of 1% non-preserved lidocaine was injected into the anterior chamber for intracameral anesthesia. The anterior chamber was then filled with viscoelastic. The pupil was small. I felt that it would be safer to mechanically dilate the pupil. A Malyugin ring was used at this point which dilated the pupil. That was removed at the end of the procedure prior to aspiration of the viscoelastic from the anterior chamber and posterior to the intraocular lens implant. The cataract had a great amount of cortical changes. That rendered seeing the anterior capsule difficult for a safe performance of an anterior capsulotomy. I injected an air bubble into the anterior chamber. I then injected 1 ML of vision blue solution into the anterior chamber. The vision blue solution was irrigated from the anterior chamber after 30 seconds. The anterior capsule was stained which facilitated performing the anterior capsulotomy safely. After that was completed, a cystotome was introduced into the anterior chamber and a round anterior capsulotomy was performed. The capsule was removed by a forceps. Hydrodissection was next carried utilizing a 25-gauge cannula and balanced salt solution to delineate the cortical material from the capsule and the nucleus from the cortical material. The nucleus was rotated freely into the capsular bag with no difficulty. The phaco tip of the Ra[employer] Phacoemulsifier was introduced into the anterior chamber and two grooves were made into the nucleus 90 degrees apart. Using two spatulas resulted into the nucleus being fractured into four quadrants. The phaco tip was then used to remove each quadrant of the nucleus. Viscoelastic was used during this process to protect the corneal endothelium. Once the entire nucleus was removed, the phaco tip then was removed and the irrigation tip was introduced into the eye and the cortex was removed. The posterior capsule was polished. It was noticed that there was a tear into the posterior capsule with few vitreous strands into the pupil plan. An anterior vitrectomy was performed. A 23.50 diopter, SN60WF, posterior chamber lens implant, was inspected and found to be grossly normal. The implant was inserted into the implant injector cartridge; Viscoelastic again was introduced into the anterior chamber, which filled the capsular bag. The implant injector's cartridge tip was placed at the limbal wound and the posterior chamber implant was released into the capsular bag and rotated appropriately. The implant was found to be into the capsular bag and it was centered. 0.2 ml of Tri-Moxi was introduced via 27 gauge cannula into the vitreous cavity through the ciliary processes. Viscoelastic was aspirated from the anterior chamber and posterior to the intraocular lens implant from the capsular bag using the irrigating tip. The anterior chamber was irrigated and filled with 5 cc antibiotic solution (500 cc of BSS plus 2 ml of Fortaz 100 mg/ml) ( if patient was not allergic to the medication). The lips of the corneal incision were hydrated using BSS solution. The anterior chamber was checked and found to be water tight. ___X___ One drop each of antibiotic, steroid and NSAID drops (refer to chart for drops used) were placed in the conjunctival cul-de-sac of the operated eye. Patient tolerated the procedure quite well and left the operating room in satisfactory condition. DISCHARGE SUMMARY: The patient was released in stable condition. The patient and those with the patient were given an instruction sheet as of how to care for the eye after surgery as well as counseling on any abnormal laboratory studies by the postoperative RN. The patient was also given an appointment card for follow-up in the office and is to call immediately for any difficulties including but not limited to pain in the eye, decreased vision, discharge from the eye, headache and or fever. DISCHARGE DIAGNOSIS: Pseudophakia of left eye.
== END 2020-01-16 14:00 | disposition home or self-care (01) ==
LOC: SDC 09:56
PROVIDERS: ATTEND Ophthalmology
DX: H25.812 Combined forms of age-related cataract, left eye (principal); E11.9 Type 2 diabetes mellitus without complications; I10 Essential (primary) hypertension; J44.9 Chronic obstructive pulmonary disease, unspecified; E78.00 Pure hypercholesterolemia, unspecified; I51.9 Heart disease, unspecified; E07.9 Disorder of thyroid, unspecified; Z79.01 Long term (current) use of anticoagulants; Z79.899 Other long term (current) drug therapy
CPT/HCPCS: 36415; 85610; C1780; J0171; J2001; J2250; J3010; A9270-GY

== ENCOUNTER 2020-03-20 09:55 | Day surgery (SDC) | payer MEDICARE ==
[2012-06-02 14:05] VITALS: BP 115/53
[2020-03-20] MEDS ORDERED: DIPRIVAN 200 MG/20 ML IV ONE (09:56)
[2020-03-20] MEDS ORDERED: Ketamine HCl 50 MG/ML IV ONE (09:56)
[2020-03-20] MEDS ORDERED: Depo-Medrol 40 MG/ML IM ONE ×2 (09:56)
[2020-03-20] MEDS ORDERED: BUPIVACAINE 0.5% VIAL IJ ONE ×2 (09:56)
--- NOTE | 2020-03-20 14:08 | XRAY ---
Indication: Left hip injection. Intraoperative fluoroscopy was provided for 17 seconds. Single digital spot image submitted for interpretation demonstrates anterior needle tip projecting just lateral to the left femur neck. Small amount of contrast injected for needle tip placement. Correlate with intraoperative findings/report.
[2020-03-20] MEDS ORDERED: Lactated Ringers 1,000 ML IV ONE (14:25)
--- NOTE | 2020-03-20 15:02 | XRAY ---
17 seconds fluoroscopy time in surgery for left intra-articular hip injection.
== END 2020-03-20 11:25 | disposition home or self-care (01) ==
LOC: SDC-PAIN 09:55
PROVIDERS: ATTEND Psychiatry & Neurology Pain Medicine
DX: M16.11 Unilateral primary osteoarthritis, right hip (principal); I10 Essential (primary) hypertension; M06.9 Rheumatoid arthritis, unspecified; M79.7 Fibromyalgia; I51.9 Heart disease, unspecified; N28.9 Disorder of kidney and ureter, unspecified; Z79.899 Other long term (current) drug therapy; E78.00 Pure hypercholesterolemia, unspecified
CPT/HCPCS: 20610; 73501; 77002; 82962; J1030; J2704; Q9966

== ENCOUNTER 2020-05-21 07:10 | Day surgery (SDC) | payer MEDICARE ==
[~2020-05-21 07:10] MED LIST changes: +ACETAZOLAMIDE 250 MG TABLET PO ONE; +Ak-Dilate OPHTHALMIC*** 1.065 ML, Cyclogyl 1% OPHTH SOL 5 ML 1.065 ML, GATIFLOXACIN 0.5... OP ONE; +BETADINE 5% OPHTHALMIC 30 ML OP ONE; +Lactated Ringers 1,000 ML IV ONE; +Lactated Ringers 1,000 ML IV SCH; +NON-FORMULARY ITEM OP ONE; +TETRACAINE 0.5% STERI-UNIT SOL OP ONE; +Zofran 4 MG/2 ML VIAL IV PRN; +cefUROXime sodium 0.005 GM in Sodium Chloride Flush 30 ML*** 0.5 ML IJ SCH
[2020-05-21] MEDS: TETRACAINE 0.5% STERI-UNIT SOL OP ONE ×2 (08:11→08:13)
[2020-05-21] MEDS ORDERED: Zofran 4 MG/2 ML VIAL IV PRN (09:00)
[2020-05-21] MEDS ORDERED: ACETAZOLAMIDE 250 MG TABLET PO ONE (09:00)
[2020-05-21] MEDS ORDERED: Epinephrine Preservative Free 1 MG/ML INTRAOP ONE (09:00)
[2020-05-21] MEDS ORDERED: LIDOCAINE HCL 1% 50 MG/5 ML VL PF IJ ONE (09:00)
[2020-05-21 10:43] VITALS: O2SAT 94
[2020-05-21 11:00] VITALS: BP 136/82; PULSE 90
--- NOTE | 2020-05-22 07:55 | OP ---
DATE/TIME OF OPERATION: 05/21/2020 1000 TIME DICTATED: 1803 PREOPERATIVE DIAGNOSIS: Senile cataract of right eye. POSTOPERATIVE DIAGNOSIS: Senile cataract of right eye. SURGEON: Jean Pierre Velasquez MD SUPERIOR COURT JUDGE: None. OPERATION: Cataract extraction of right eye with an intraocular lens implant. STANDARD __X___ COMPLEX ANESTHESIA: MAC. ___X__ Monitored anesthesia care in combination with topical and intra-cameral anesthesia (because of the established specific risk of reflux, arrhythmias, or an anxiety attack associated with ocular manipulation as well as difficulty of the parole hearing officer to manage such potentially catastrophic events while simultaneously attempting to complete the surgical procedure, it was deemed necessary for the patient's safety to have an anesthesiologist or a nurse inspector soldering present during the procedure whenever possible. The anesthesiologist or the nurse inspector soldering was utilized to monitor and regulate the intravenous sedation of the patient, so the patient was cooperative, relaxed, and comfortable). Topical anesthesia using Tetracaine eye drops together with intra cameral anesthesia using Lidocaine 1% MPF. The nurse was utilized to monitor the patient. ANESTHESIA PROVIDER: Meliton Burks CRNA. COMPLICATIONS: None. BLOOD LOSS: None. INDICATIONS: The patient is undergoing cataract surgery in the hopes of eliminating the visual complaints and difficulty. PROCEDURE: After arriving at the facility's outpatient surgery area, an IV was started; the patient was given 5 mg of p.o. Versed. (If an anesthesia provider was not monitoring the patient) The patient was then given topical anesthetic Tetracaine eye drops. A cotton pellet was soaked into a solution of a combination of Zymaxid 0.5%, Kirby-Synephrine 2.5% and Ocufen (other drops might have been substituted referenced in the patient's record). The pellet was inserted by the RN into the lower conjunctival cul-de-sac with a sterile forceps and left for 20 minutes. The pellet was then removed by the RN with a sterile forceps before taking the patient to the operating room. The preoperative area nurse identified the patient and marked the correct eye to be operated on. I identified the correct eye to be operated on and marked it appropriately in the outpatient surgery area. The patient was then taken into the operating room. Tetracaine eye drops were installed again in the correct eye. The eyelids and the lashes and the lid margins were scrubbed with Betadine solution. One drop of the diluted Betadine solution was placed in the conjunctival cul-de-sac for 45 seconds and then was irrigated. A drop of Tetracaine Gel was placed in the conjunctival cul-de-sac. The patient's forehead was taped to secure it during the procedure. The patient was monitored. The patient was then draped in the usual way for this procedure. An eye speculum was used to separate the eyelids. The eye was then fixated and a temporal 2.5 mm incision was made in the clear cornea temporally at the limbus. Through the incision, 0.25 cc of 1% non-preserved lidocaine was injected into the anterior chamber for intracameral anesthesia. The anterior chamber was then filled with viscoelastic. The pupil was small. I felt that it would be safer to mechanically dilate the pupil. A Malyugin ring was used at this point which dilated the pupil. That was removed at the end of the procedure prior to aspiration of the viscoelastic from the anterior chamber and posterior to the intraocular lens implant. The cataract had a great amount of cortical changes. That rendered seeing the anterior capsule difficult for a safe performance of an anterior capsulotomy. I injected an air bubble into the anterior chamber. I then injected 1 ML of vision blue solution into the anterior chamber. The vision blue solution was irrigated from the anterior chamber after 30 seconds. The anterior capsule was stained which facilitated performing the anterior capsulotomy safely. After that was completed, a cystotome was introduced into the anterior chamber and a round anterior capsulotomy was performed. The capsule was removed by a forceps. Hydrodissection was next carried utilizing a 25-gauge cannula and balanced salt solution to delineate the cortical material from the capsule and the nucleus from the cortical material. The nucleus was rotated freely into the capsular bag with no difficulty. The phaco tip of the [employer] Phacoemulsifier was introduced into the anterior chamber and two grooves were made into the nucleus 90 degrees apart. Using two spatulas resulted into the nucleus being fractured into four quadrants. The phaco tip was then used to remove each quadrant of the nucleus. Viscoelastic was used during this process to protect the corneal endothelium. Once the entire nucleus was removed, the phaco tip then was removed and the irrigation tip was introduced into the eye and the cortex was removed. The posterior capsule was polished. It was noticed that there was a tear into the posterior capsule with few vitreous strands into the pupil plan. An anterior vitrectomy was performed. A 23.50 diopter, SN60WF, posterior chamber lens implant, was inspected and found to be grossly normal. The implant was inserted into the implant injector cartridge; Viscoelastic again was introduced into the anterior chamber, which filled the capsular bag. The implant injector's cartridge tip was placed at the limbal wound and the posterior chamber implant was released into the capsular bag and rotated appropriately. The implant was found to be into the capsular bag and it was centered. 0.2 ml of Tri-Moxi was introduced via 27 gauge cannula into the vitreous cavity through the ciliary processes. Viscoelastic was aspirated from the anterior chamber and posterior to the intraocular lens implant from the capsular bag using the irrigating tip. The anterior chamber was irrigated and filled with 5 cc antibiotic solution (500 cc of BSS plus 2 ml of Fortaz 100 mg/ml) ( if patient was not allergic to the medication). The lips of the corneal incision were hydrated using BSS solution. The anterior chamber was checked and found to be water tight. ___X__ One drop each of antibiotic, steroid and NSAID drops (refer to chart for drops used) were placed in the conjunctival cul-de-sac of the operated eye. Patient tolerated the procedure quite well and left the operating room in satisfactory condition. DISCHARGE SUMMARY: The patient was released in stable condition. The patient and those with the patient were given an instruction sheet as of how to care for the eye after surgery as well as counseling on any abnormal laboratory studies by the postoperative RN. The patient was also given an appointment card for follow-up in the office and is to call immediately for any difficulties including but not limited to pain in the eye, decreased vision, discharge from the eye, headache and or fever. DISCHARGE DIAGNOSIS: Pseudophakia of right eye.
== END 2020-05-21 11:05 | disposition home or self-care (01) ==
LOC: SDC 07:10
PROVIDERS: ATTEND Ophthalmology
DX: H25.811 Combined forms of age-related cataract, right eye (principal); E11.9 Type 2 diabetes mellitus without complications; I10 Essential (primary) hypertension; E78.00 Pure hypercholesterolemia, unspecified; E07.9 Disorder of thyroid, unspecified; Z79.899 Other long term (current) drug therapy
CPT/HCPCS: 82962; C1780; J0171; J2001; J2704; A9270-GY

== ENCOUNTER 2020-05-27 13:03 | Emergency (ER) | payer MEDICARE ==
--- NOTE | 2020-05-27 13:09 | ERPHSYRPT ---
- History of Present Illness Time Seen by Provider: 05/27/20 13:09 Source: patient Exam Limitations: no limitations Physician History: This is a 69-year-old white female who recently underwent a bilateral cataract surgery. Her neck was held in a specific position during her procedure. A couple days ago, patient noticed worsening pain in her neck. Patient is currently not on any analgesics other than plain Tylenol. Patient states that she does see Dr. Parnell who is her pain specialist. She has not seen him in a few months. She states that she has had morphine in the past as well as oral Garwood 5/325 which has helped her chronic neck back and hip pain. Patient denies any type of acute traumatic injury. Timing/Duration: day(s) Severity: moderate Modifying Factors: Improves With: movement Associated Symptoms: denies symptoms, No chest pain Allergies/Adverse Reactions: Penicillins Allergy (Mild, Verified 05/27/20 13:41) itching and hives meperidine HCl [From Demerol] Allergy (Unknown, Verified 05/27/20 13:41) "MAKES CRAZY" Home Medications: Albuterol Sulfate [Ventolin Hfa] 2 puffs IH UD PRN 08/27/19 [History] Ascorbic Acid 500 mg [Vitamin C 500 MG] 500 mg PO DAILY 08/27/19 [History] Betamethasone Valerate 2 gm TP DAILY PRN 08/27/19 [History] Budesonide/Formoterol Fumarate [Symbicort 80-4.5 Mcg Inhaler] 2 puffs IH BID 08/27/19 [History] Cholecalciferol (Vitamin D3) [Vitamin D3] 1,000 unit PO DAILY 08/27/19 [History] Clobetasol Propionate/Emoll [Clobetasol Emollient 0.05% Crm] 1 gm TP DAILY PRN 08/27/19 [History] Clopidogrel Bisulfate 75 mg [PLAVIX 75 MG Tablet] 75 mg PO DAILY 08/27/19 [History] Cyanocobalamin (Vitamin B-12) [B-12] 1,000 mcg PO DAILY 08/27/19 [History] Cyclobenzaprine HCl 10 mg [Cyclobenzaprine 10 MG] 10 mg PO HS 08/27/19 [History] Furosemide 20 mg [Lasix 20 mg] 10 mg PO DAILY 08/27/19 [History] Hydroxychloroquine Sulfate 200 mg PO BID 08/27/19 [History] Levothyroxine Sodium 50 Mcg [Synthroid 50 Mcg] 50 mcg PO DAILY 08/27/19 [History] Magnesium Oxide 400 mg [Mag-Ox 400] 400 mg PO BID 08/27/19 [History] Montelukast Sodium 10 mg [Singulair 10 MG] 10 mg PO DAILY 08/27/19 [History] [place]-3 Fatty Acids/Fish Oil [Fish Oil 1,000 mg Capsule] 1,200 mg PO DAILY 08/27/19 [History] Potassium Chloride [Klor-Con] 40 meq PO BID 08/27/19 [History] Pregabalin [Lyrica 150Mg] 150 mg PO BID 08/27/19 [History] Simvastatin 40 mg PO HS 08/27/19 [History] Trazodone HCl 150 mg PO HS 08/27/19 [History] Venlafaxine HCl [Effexor Xr] 225 mg PO DAILY 08/27/19 [History] glyBURIDE [Glyburide] 0.625 mg PO DAILY 08/27/19 [History] Omeprazole 40 mg PO DAILY 05/21/20 [History] Hx Tetanus, Diphtheria Vaccination/Date Given: Yes Hx Influenza Vaccination/Date Given: Yes Hx Pneumococcal Vaccination/Date Given: Yes Travel Risk - International Travel Have you traveled outside of the country in past 3 weeks: No - Coronavirus Screening Are you exhibiting any of the following symptoms?: No Close contact with a COVID-19 positive Pt in past 14-21 Days: No - Review of Systems Constitutional: No Symptoms Eyes: No Symptoms Ears, Nose, & Throat: No Symptoms Respiratory: No Symptoms Cardiac: No Symptoms Abdominal/Gastrointestinal: No Symptoms Genitourinary Symptoms: No Symptoms Musculoskeletal: Other (Bilateral paraspinous muscle pain), No Injury Skin: No Symptoms Neurological: No Symptoms Psychological: No Symptoms Endocrine: No Symptoms Hematologic/Lymphatic: No Symptoms Immunological/Allergic: No Symptoms All Other Systems: Reviewed and Negative - Past Medical History Pertinent Past Medical History: Yes Neurological History: Migraines, TIA ENT History: No Pertinent History Cardiac History: No Pertinent History Respiratory History: Asthma, COPD Endocrine Medical History: Diabetes Type II Musculoskeletal History: Osteoarthritis GI Medical History: Colitis, Diverticulitis, Esophageal Disorder, GERD, Gallbladder Disease, GI Bleed, Hemorrhoids, Irritable Bowel, Polyps History: Other Psycho-Social History: Anxiety, Bipolar, Depression, Panic Disorder Female Reproductive Disorders: No Pertinent History Other Medical History: fatty liver - Past Surgical History Past Surgical History: Yes Neuro Surgical History: No Pertinent History Cardiac: Cardiac Catheterization Respiratory: No Pertinent History Gastrointestinal: Cholecystectomy Genitourinary: No Pertinent History Musculoskeletal: Joint Replacement, Other Female Surgical History: Hysterectomy Other Surgical History: CERIVCAL FUSION AND 5TH,6TH VETEBRAES FUSED. TOTAL RIGHT KNEE, right shoulder rotator cuff and right arm disloation, repair bicep muscle and tendon of right shoulder - Social History Smoking Status: Never smoker Exposure to second hand smoke: No Alcohol Use: None Drug Use: none Patient Lives Alone: Yes Significant Family History: diabetes, hypertension - Nursing Vital Signs Nursing Vital Signs: Initial Vital Signs Temperature 98 F 05/27/20 13:32 Pulse Rate 85 05/27/20 13:32 Respiratory Rate 16 05/27/20 13:32 Blood Pressure 133/81 05/27/20 13:32 O2 Sat by Pulse Oximetry 96 05/27/20 13:32 Pain Scale Pain Intensity 10 - Physical Exam General Appearance: no apparent distress Eye Exam: PERRL/EOMI, eyes nml inspection Ears, Nose, Throat Exam: normal ENT inspection Neck Exam: normal inspection, supple, full range of motion, other (Has palpable tenderness bilateral paraspinous muscle and bilateral trapezius muscle. No vertebral body tenderness to palpation) Respiratory Exam: airway intact, No chest tenderness, No respiratory distress Gastrointestinal/Abdomen Exam: soft, No tenderness Pelvic Exam: not done Rectal Exam: not done Back Exam: normal inspection, normal range of motion, No CVA tenderness, No vertebral tenderness Extremity Exam: normal inspection, normal range of motion, pelvis stable Neurologic Exam: alert, oriented x 3, cooperative, donor center technician II-XII nml as tested, normal mood/affect, nml cerebellar function, nml station & gait, sensation nml Skin Exam: normal color, warm, dry Lymphatic Exam: No adenopathy SpO2 Interpretation: normal O2 Delivery: Room Air - Course Nursing assessment & vital signs reviewed: Yes - Progress Progress: improved, pain not gone completely Counseled pt/family regarding: diagnosis, need for follow-up - Departure Departure Disposition: Home Clinical Impression: Neck pain, Musculoskeletal pain Condition: Stable Critical Care Time: No Referrals: ADIN KUNZ [Primary Care Provider] - Additional Instructions: Take medication as prescribed. Call Dr. Parnell's office today to make arrangements for follow-up appointment. Prescriptions: Hydrocodone/APAP 5-325 Tab^^^ [Garwood 5-325 Tablet^^^] 1 tab PO Q8H PRN PRN #6 tablet MDD 3 PRN Reason: Pain Prednisone 10 mg [Deltasone 10 mg] 10 mg PO TID #12 tablet
[2020-05-27 14:40] VITALS: BP 116/62; PULSE 84; O2SAT 97
[2020-05-27] MEDS ORDERED: solu-MEDROL 125 MG IM ONE (14:46)
[2020-05-27] MEDS ORDERED: Phenergan 25 MG INJ IM ONE (14:47)
[2020-05-27] MEDS ORDERED: Hydromorphone 1 mg/ml Injection IM ONE (14:47)
[2020-05-27] MEDS ORDERED: solu-MEDROL 125 MG ONE (14:58)
[2020-05-27] MEDS ORDERED: Hydromorphone 1 mg/ml Injection ONE (14:58)
[2020-05-27] MEDS ORDERED: Phenergan 25 MG INJ ONE (14:58)
== END 2020-05-27 15:27 | disposition home or self-care (01) ==
LOC: ED 13:03
DX: M54.2 Cervicalgia (principal); M79.18 Myalgia, other site; Z79.899 Other long term (current) drug therapy; E11.9 Type 2 diabetes mellitus without complications; M19.90 Unspecified osteoarthritis, unspecified site
CPT/HCPCS: 96372; 99284; J1170; J2550; J2930

== ENCOUNTER 2020-06-12 09:23 | Day surgery (SDC) | payer MEDICARE ==
[2012-06-02 14:05] VITALS: BP 115/53
[2020-06-12] MEDS ORDERED: Decadron 4 MG INJ IV ONE (09:24)
[2020-06-12] MEDS ORDERED: Xylocaine-Mpf 2% 5 Ml Vial IJ ONE (09:24)
[2020-06-12] MEDS ORDERED: DIPRIVAN 200 MG/20 ML IV ONE (10:23)
[2020-06-12] MEDS ORDERED: Ketamine HCl 50 MG/ML ONE (10:23)
--- NOTE | 2020-06-12 12:09 | XRAY ---
Indication: C2-C4 MBB. Intraoperative fluoroscopy was provided for 43 seconds. 2 digital spot images submitted for interpretation demonstrates posterior needle tips projecting over the expected left C2-C4 nerve roots. Correlate with intraoperative findings/report.
--- NOTE | 2020-06-12 12:21 | XRAY ---
43 seconds fluoroscopy time in surgery for left C2-C4 MBB.
[2020-06-12] MEDS ORDERED: Lactated Ringers 1,000 ML IV ONE (15:14)
== END 2020-06-12 11:01 | disposition home or self-care (01) ==
LOC: SDC-PAIN 09:23
PROVIDERS: ATTEND Psychiatry & Neurology Pain Medicine
DX: M47.812 Spondylosis without myelopathy or radiculopathy, cervical region (principal); E11.9 Type 2 diabetes mellitus without complications; I10 Essential (primary) hypertension; M06.9 Rheumatoid arthritis, unspecified; I51.9 Heart disease, unspecified; N28.9 Disorder of kidney and ureter, unspecified; Z79.899 Other long term (current) drug therapy
CPT/HCPCS: 64490; 64491; 72020; 77002; 82947; 82962; J1100; J2704

== ENCOUNTER 2020-09-26 16:29 | Emergency (ER) | payer MEDICARE ==
--- NOTE | 2020-09-26 17:28 | ERPHSYRPT ---
- History of Present Illness Time Seen by Provider: 09/26/20 16:35 Source: patient Exam Limitations: no limitations Patient Subjective Stated Complaint: "I thought I was stepping off of the step but the white part of my mask blocked my vision." Triage Nursing Assessment: Patient reported tripping and falling d/t having her vision blocked by her mask. Reported that she struck her right elbow, 5th digit, and right knee. Denied any head injury or loss of consciousness. Denied any headache, visual/auditory disturbances, dizziness. Denied chest pain, shortness of breath, nausea/vomiting. During the interiew, the patient reported that she was having epgastric pain prior to the fall. Reported having a significant cardiac history. Physician History: Patient is a 70-year-old female who presents to our ED for evaluation status post fall. Patient was exiting her insurance company when she missed stepped. Patient states she was unable to see the step due to the mask was partially obstructing her vision. Patient fell onto her right side. Patient injured her right arm right hand and right knee. Patient denies pain at her right arm elbow and hand at this time. She does have an abrasion on her forearm however. Patient also has abrasion to the anterior aspect of her right knee. Patient concerned as she has a history of total right knee replacement. Patient fell onto the sidewalk. She denies BHT or LOC. No neck pain. Cervical spine cleared clinically. No chest pain or shortness of breath. Patient states she feels mildly nauseous. Patient voices no other complaints at this time. Timing/Duration: today Severity: moderate Modifying Factors: Improves With: other (Weightbearing increases pain at right knee.) Associated Symptoms: denies symptoms, nausea Allergies/Adverse Reactions: Penicillins Allergy (Mild, Verified 09/26/20 16:30) itching and hives meperidine HCl [From Demerol] Allergy (Unknown, Verified 09/26/20 16:30) "MAKES CRAZY" Home Medications: Albuterol Sulfate [Ventolin Hfa] 2 puffs IH UD PRN 08/27/19 [History] Ascorbic Acid 500 mg [Vitamin C 500 MG] 500 mg PO DAILY 08/27/19 [History] Betamethasone Valerate 2 gm TP DAILY PRN 08/27/19 [History] Budesonide/Formoterol Fumarate [Symbicort 80-4.5 Mcg Inhaler] 2 puffs IH BID 08/27/19 [History] Cholecalciferol (Vitamin D3) [Vitamin D3] 1,000 unit PO DAILY 08/27/19 [History] Clobetasol Propionate/Emoll [Clobetasol Emollient 0.05% Crm] 1 gm TP DAILY PRN 08/27/19 [History] Clopidogrel Bisulfate 75 mg [PLAVIX 75 MG Tablet] 75 mg PO DAILY 08/27/19 [History] Cyanocobalamin (Vitamin B-12) [B-12] 1,000 mcg PO DAILY 08/27/19 [History] Cyclobenzaprine HCl 10 mg [Cyclobenzaprine 10 MG] 10 mg PO HS 08/27/19 [History] Furosemide 20 mg [Lasix 20 mg] 10 mg PO DAILY 08/27/19 [History] Hydroxychloroquine Sulfate 200 mg PO BID 08/27/19 [History] Levothyroxine Sodium 50 Mcg [Synthroid 50 Mcg] 50 mcg PO DAILY 08/27/19 [History] Magnesium Oxide 400 mg [Mag-Ox 400] 400 mg PO BID 08/27/19 [History] Montelukast Sodium 10 mg [Singulair 10 MG] 10 mg PO DAILY 08/27/19 [History] [place]-3 Fatty Acids/Fish Oil [Fish Oil 1,000 mg Capsule] 1,200 mg PO DAILY 08/27/19 [History] Potassium Chloride [Klor-Con] 40 meq PO BID 08/27/19 [History] Pregabalin [Lyrica 150Mg] 150 mg PO BID 08/27/19 [History] Simvastatin 40 mg PO HS 08/27/19 [History] Trazodone HCl 150 mg PO HS 08/27/19 [History] Venlafaxine HCl [Effexor Xr] 225 mg PO DAILY 08/27/19 [History] glyBURIDE [Glyburide] 0.625 mg PO DAILY 08/27/19 [History] Omeprazole 40 mg PO DAILY 05/21/20 [History] Hx Tetanus, Diphtheria Vaccination/Date Given: Yes Hx Influenza Vaccination/Date Given: Yes Hx Pneumococcal Vaccination/Date Given: Yes Travel Risk - International Travel Have you traveled outside of the country in past 3 weeks: No - Coronavirus Screening Are you exhibiting any of the following symptoms?: No Close contact with a COVID-19 positive Pt in past 14-21 Days: No - Review of Systems Constitutional: No Symptoms, No Fever, No Chills Eyes: No Symptoms Ears, Nose, & Throat: No Symptoms Respiratory: No Symptoms, No Cough, No Dyspnea Cardiac: No Symptoms, No Chest Pain, No Edema, No Syncope Abdominal/Gastrointestinal: No Symptoms, No Abdominal Pain, No Nausea, No Vomiting, No Diarrhea Genitourinary Symptoms: No Symptoms, No Dysuria Musculoskeletal: No Symptoms, No Back Pain, No Neck Pain Skin: No Symptoms, No Rash Neurological: No Symptoms, No Dizziness, No Focal Weakness, No Sensory Changes Psychological: No Symptoms Endocrine: No Symptoms Hematologic/Lymphatic: No Symptoms Immunological/Allergic: No Symptoms All Other Systems: Reviewed and Negative - Past Medical History Pertinent Past Medical History: Yes Neurological History: Migraines, TIA ENT History: No Pertinent History Cardiac History: No Pertinent History Respiratory History: Asthma, COPD Endocrine Medical History: Diabetes Type II Musculoskeletal History: Osteoarthritis GI Medical History: Colitis, Diverticulitis, Esophageal Disorder, GERD, Gallbladder Disease, GI Bleed, Hemorrhoids, Irritable Bowel, Polyps History: Other Psycho-Social History: Anxiety, Bipolar, Depression, Panic Disorder Female Reproductive Disorders: No Pertinent History Other Medical History: fatty liver - Past Surgical History Past Surgical History: Yes Neuro Surgical History: No Pertinent History Cardiac: Cardiac Catheterization Respiratory: No Pertinent History Gastrointestinal: Cholecystectomy Genitourinary: No Pertinent History Musculoskeletal: Joint Replacement, Other Female Surgical History: Hysterectomy Other Surgical History: CERIVCAL FUSION AND 5TH,6TH VETEBRAES FUSED. TOTAL RIGHT KNEE, right shoulder rotator cuff and right arm disloation, repair bicep muscle and tendon of right shoulder - Social History Smoking Status: Never smoker Exposure to second hand smoke: No Alcohol Use: None Drug Use: none Patient Lives Alone: Yes Significant Family History: diabetes, hypertension - Nursing Vital Signs Nursing Vital Signs: Initial Vital Signs Temperature 98.7 F 09/26/20 16:29 Pulse Rate 78 09/26/20 16:29 Respiratory Rate 16 09/26/20 16:29 Blood Pressure 133/86 09/26/20 16:29 O2 Sat by Pulse Oximetry 98 09/26/20 16:29 Pain Scale Pain Intensity 6 - Physical Exam General Appearance: no apparent distress, alert Eye Exam: PERRL/EOMI, eyes nml inspection Ears, Nose, Throat Exam: normal ENT inspection, TMs normal, pharynx normal, moist mucous membranes Neck Exam: normal inspection, non-tender, supple, full range of motion Respiratory Exam: normal breath sounds, lungs clear, No respiratory distress Cardiovascular Exam: regular rate/rhythm, normal heart sounds, normal peripheral pulses Gastrointestinal/Abdomen Exam: soft, normal bowel sounds, No tenderness, No mass Back Exam: normal inspection, normal range of motion, No CVA tenderness, No vertebral tenderness Extremity Exam: normal inspection, normal range of motion, pelvis stable, other (There is a contusion and abrasion to the anterior aspect of her right knee. There is a contusion to the right forearm. Patient has no bony tenderness at her forearm or hand. Patient denies pain of her forearm and RT hand at this time.) Neurologic Exam: alert, oriented x 3, cooperative, normal mood/affect, nml cerebellar function, nml station & gait, sensation nml, No motor deficits Skin Exam: normal color, warm, dry, No rash Lymphatic Exam: No adenopathy SpO2 Interpretation: normal SpO2: 97 O2 Delivery: Room Air - Course Nursing assessment & vital signs reviewed: Yes EKG Interpreted by Me: RATE (75), Sinus Rhythm, NORMAL AXIS, NORMAL INTERVALS - Radiology Exams Knee X-ray Interpretation: Interpreted by me (Total knee hardware intact. There is osteopenia observed. No loosening of the hardware. No fractures or dislocations.) Ordered Tests: Active Orders 24 hr Category Date Time Status Caser Up STAT Care 09/26/20 16:47 Active EKG-ER Only STAT Care 09/26/20 16:46 Active IV Insertion STAT Care 09/26/20 16:46 Active Pulse Oximetry (ED) STAT Care 09/26/20 16:46 Active KNEE (3 VIEWS) Stat Exams 09/26/20 16:48 Taken CBC W DIFF Stat Lab 09/26/20 17:51 Completed CMP Stat Lab 09/26/20 17:51 Completed MAGNESIUM Stat Lab 09/26/20 17:51 Completed Manual Differential NC Stat Lab 09/26/20 17:51 Completed TROPONIN Q3H Lab 09/26/20 17:51 Completed TROPONIN Q3H Lab 09/26/20 20:00 Ordered TROPONIN Q3H Lab 09/26/20 23:00 Ordered TROPONIN Q3H Lab 09/27/20 02:00 Ordered TROPONIN Q3H Lab 09/27/20 05:00 Ordered UA W/RFX UR CULTURE Stat Lab 09/26/20 18:42 Completed Lab/Rad Data: Laboratory Result Diagrams 09/26/20 17:51 09/26/20 17:51 Laboratory Results 09/26/20 09/26/20 09/26/20 Range/Units 18:42 17:51 17:51 WBC (4.0-10.5) K/mm3 RBC (4.1-5.4) M/mm3 Hgb (12.0-16.0) gm/dl Hct (35-47) % MCV (78-100) fl MCH (26-32) pg MCHC (32-36) g/dl RDW (11.5-14.0) % Plt Count (150-450) K/mm3 MPV (7.5-11.0) fl Absolute Granulocytes (1.4-6.9) Sodium 134 L (137-145) mmol/L Potassium 4.2 (3.5-5.1) mmol/L Chloride 98 (98-107) mmol/L Carbon Dioxide 33 H (22-30) mmol/L Anion Gap 7.9 (5-15) MEQ/L BUN 14 (7-17) mg/dL Creatinine 0.82 (0.52-1.04) mg/dL Estimated GFR > 60.0 ML/MIN Glucose 97 (74-106) mg/dL Calcium 9.6 (8.4-10.2) mg/dL Magnesium 2.0 (1.6-2.3) mg/dL Total Bilirubin 0.30 (0.2-1.3) mg/dL AST 27 (14-36) U/L ALT 13 (0-35) U/L Alkaline Phosphatase 107 (38-126) U/L Troponin I < 0.012 (0.000-0.034) ng/mL Serum Total Protein 7.2 (6.3-8.2) g/dL Albumin 4.3 (3.5-5.0) g/dL Urine Color COLORLESS (YELLOW) Urine Appearance CLEAR (CLEAR) Urine pH 5.0 (5-6) Ur Specific [place] 1.005 (1.005-1.025) Urine Protein NEGATIVE (Negative) Urine Ketones NEGATIVE (NEGATIVE) Urine Blood NEGATIVE (0-5) Jez/ul Urine Nitrite NEGATIVE (NEGATIVE) Urine Bilirubin NEGATIVE (NEGATIVE) Urine Urobilinogen NEGATIVE (0-1) mg/dL Ur Leukocyte Esterase NEGATIVE (NEGATIVE) Urine WBC (Auto) NONE (0-5) /HPF Urine RBC (Auto) NONE (0-2) /HPF U Epithel Cells (Auto) NONE (FEW) /HPF Urine Bacteria (Auto) NONE (NEGATIVE) /HPF Urine Culture Reflexed NO (NO) Urine Glucose NEGATIVE (NEGATIVE) mg/dL 09/26/20 Range/Units 17:51 WBC 7.9 (4.0-10.5) K/mm3 RBC 3.77 L (4.1-5.4) M/mm3 Hgb 10.7 L (12.0-16.0) gm/dl Hct 34.7 L (35-47) % MCV 92.0 (78-100) fl MCH 28.4 (26-32) pg MCHC 30.8 L (32-36) g/dl RDW 16.4 H (11.5-14.0) % Plt Count 272 (150-450) K/mm3 MPV 9.8 (7.5-11.0) fl Absolute Granulocytes 5.17 (1.4-6.9) Sodium (137-145) mmol/L Potassium (3.5-5.1) mmol/L Chloride (98-107) mmol/L Carbon Dioxide (22-30) mmol/L Anion Gap (5-15) MEQ/L BUN (7-17) mg/dL Creatinine (0.52-1.04) mg/dL Estimated GFR ML/MIN Glucose (74-106) mg/dL Calcium (8.4-10.2) mg/dL Magnesium (1.6-2.3) mg/dL Total Bilirubin (0.2-1.3) mg/dL AST (14-36) U/L ALT (0-35) U/L Alkaline Phosphatase (38-126) U/L Troponin I (0.000-0.034) ng/mL Serum Total Protein (6.3-8.2) g/dL Albumin (3.5-5.0) g/dL Urine Color (YELLOW) Urine Appearance (CLEAR) Urine pH (5-6) Ur Specific [place] (1.005-1.025) Urine Protein (Negative) Urine Ketones (NEGATIVE) Urine Blood (0-5) Jez/ul Urine Nitrite (NEGATIVE) Urine Bilirubin (NEGATIVE) Urine Urobilinogen (0-1) mg/dL Ur Leukocyte Esterase (NEGATIVE) Urine WBC (Auto) (0-5) /HPF Urine RBC (Auto) (0-2) /HPF U Epithel Cells (Auto) (FEW) /HPF Urine Bacteria (Auto) (NEGATIVE) /HPF Urine Culture Reflexed (NO) Urine Glucose (NEGATIVE) mg/dL - Progress Progress: improved Progress Note: 09/26/20 19:47 Patient reassessed. She feels well. Nausea resolved. X-ray of her right knee is negative for loosening of hardware fracture or dislocation. Patient does have contusion of her right knee and forearm. There also is an abrasion of her right knee. Work-up essentially negative. Patient has no complaints. Troponin negative x2. Will discharge home at this time. Patient understands that she may develop pain or soreness at a later time. Patient is to address any new symptoms with her primary care doctor as she may need additional imaging studies or even possible repeat imaging studies. Patient states ready for discharge. She voices no other complaints at this time. Counseled pt/family regarding: lab results, diagnosis, need for follow-up, rad results - Departure Departure Disposition: Home Clinical Impression: Fall, Nausea, Knee contusion, Knee abrasion, Arm contusion, Anemia Condition: Stable Critical Care Time: No Referrals: ADIN KUNZ [Primary Care Provider] - Instructions: Contusion (DC), Preventing Falls Additional Instructions: Discharge/Care Plan SILVESTRE BELTRAN HALLIE was seen on 09/26/20 in the Emergency Room. The patient was counseled regarding Diagnosis,Lab results, Imaging studies, need for follow up and when to return to the Emergency Room. Prescriptions given: Discharge Note I have spoken with the patient and/or caregivers. I have explained the patient's condition, diagnosis and treatment plan based on the information available to me at this time. I have answered the patient's and/or caregiver's questions and addressed any concerns. The patient and/or caregivers have as good understanding of the patient's diagnosis, condition and treatment plan as can be expected at this point. The vital signs have been stable. The patient's condition is stable and appropriate for discharge from the emergency department. The patient will pursue further outpatient evaluation with the primary care physician or other designated or consulting physician as outlined in the discharge instructions. The patient and/or caregivers are agreeable to this plan of care and follow-up instructions have been explained in detail. The patient and/or caregivers have received these instruction. The patient/and or caregivers are aware that any significant change in condition or worsening of symptoms should prompt an immediate return to this or the closest emergency department or call 911.
[2020-09-26 17:54] LABS: Absolute Neutrophil Ct (ANC) 5.17 (1.4-6.9); Hematocrit 34.7 % (35-47); Hemoglobin 10.7 gm/dl (12.0-16.0); Mean Corpuscular Hemoglobin 28.4 pg (26-32); Mean Corpuscular Hgb Concent. 30.8 g/dl (32-36); Mean Platelet Volume 9.8 fl (7.5-11.0); Platelet Count 272 K/mm3 (150-450); Red Blood Count 3.77 M/mm3 (4.1-5.4); Red Cell Distribution Width 16.4 % (11.5-14.0); White Blood Count 7.9 K/mm3 (4.0-10.5)
[2020-09-26 18:24] LABS: ALBUMIN 4.3 g/dL (3.5-5.0); ALKALINE PHOSPHATASE 107 U/L (38-126); ANION GAP 7.9 MEQ/L (5-15); BLOOD UREA NITROGEN 14 mg/dL (7-17); CHLORIDE 98 mmol/L (98-107); Calcium 9.6 mg/dL (8.4-10.2); Carbon Dioxide 33 mmol/L (22-30); Creatinine 1 0.82 mg/dL (0.52-1.04); EST GLOMERULAR FILTRATION RATE > 60.0 ML/MIN; Glucose 97 mg/dL (74-106); Potassium 4.2 mmol/L (3.5-5.1); SGOT/AST 27 U/L (14-36); SGPT/ALT 13 U/L (0-35); SODIUM 134 mmol/L (137-145); Total Protein 7.2 g/dL (6.3-8.2)
[2020-09-26 18:54] LABS: Appearance CLEAR (CLEAR); Bilirubin NEGATIVE (NEGATIVE); Blood NEGATIVE Ery/ul (0-5); Glucose NEGATIVE (NEGATIVE); Ketones NEGATIVE (NEGATIVE); Leukocyte Esterase NEGATIVE (NEGATIVE); Nitrite NEGATIVE (NEGATIVE); Protein,Urine Dip NEGATIVE (Negative); Specific Gravity 1.005 (1.005-1.025); Urobilinogen NEGATIVE mg/dL (0-1)
[2020-09-26 20:01] LABS: ATYPICAL LYMPHS 2 %; BAND 1 % (0.0-2.0); Lymphocytes 22 % (24-44); Monocyte 7 % (0.0-12.0); Neutrophils 68 % (36.0-66.0); Platelet Estimate NORMAL (NORMAL); Total Cells Counted 100
[2020-09-26 22:26] VITALS: BP 138/72; PULSE 76; O2SAT 99
--- NOTE | 2020-09-27 14:39 | XRAY ---
Exam: 3 view right knee series from 09/26/2020. Comparison: 3 view right knee series from 05/09/2020. Indication: 70-year-old female with fall, complains of right knee pain and bruising, history of right knee replacement 20 years ago. Findings: AP, oblique, and lateral radiographs of the right knee were obtained. I again see evidence of a total right knee replacement without evidence of hardware loosening. There is no fracture or dislocation. The bones are somewhat demineralized. There is a stable focal sclerotic density within the supracondylar region of the distal right femur which likely represents an enchondroma or small bone infarct. Some prominent heterotopic soft tissue calcifications are seen posterior to the distal right femur on the lateral radiograph. No other significant abnormality is seen. Impression: 1. Status post right total knee replacement. 2. No acute right knee fracture, dislocation, or hardware loosening is seen. 3. Other stable incidental findings, as discussed above.
== END 2020-09-26 22:10 | disposition home or self-care (01) ==
LOC: ED 16:29
DX: S80.01XA Contusion of right knee, initial encounter (principal); S80.211A Abrasion, right knee, initial encounter; S50.01XA Contusion of right elbow, initial encounter; E11.9 Type 2 diabetes mellitus without complications; D64.9 Anemia, unspecified; W10.8XXA Fall (on) (from) other stairs and steps, initial encounter; Z79.899 Other long term (current) drug therapy; Z79.01 Long term (current) use of anticoagulants; Z79.84 Long term (current) use of oral hypoglycemic drugs
CPT/HCPCS: 36000; 36415; 73562; 80053; 81001; 83735; 84484; 85025; 93005; 93041; 94760; 99284

== ENCOUNTER 2020-10-16 08:04 | Day surgery (SDC) | payer MEDICARE ==
[2012-06-02 14:05] VITALS: BP 115/53
[2020-10-16] MEDS ORDERED: BUPIVACAINE 0.5% VIAL IJ ONE (08:05)
[2020-10-16] MEDS ORDERED: Lactated Ringers 1,000 ML IV ONE (08:05)
[2020-10-16] MEDS ORDERED: Depo-Medrol 40 MG/ML IM ONE (08:05)
[2020-10-16] MEDS ORDERED: DIPRIVAN 200 MG/20 ML IV ONE (10:23)
[2020-10-16] MEDS ORDERED: Ketamine HCl 50 MG/ML ONE (10:23)
--- NOTE | 2020-10-16 11:54 | XRAY ---
11 seconds fluoroscopy time in surgery for intra-articular injection of the left hip.
--- NOTE | 2020-10-16 11:54 | XRAY ---
Indication: Left hip injection. Intraoperative fluoroscopy provided for 11 seconds. Single digital spot image submitted for interpretation demonstrates needle tip projecting just lateral to left femur head. Small amount of contrast injected for needle tip placement. Correlate with intraoperative findings/report.
== END 2020-10-16 10:49 | disposition home or self-care (01) ==
LOC: SDC-PAIN 08:04
PROVIDERS: ATTEND Psychiatry & Neurology Pain Medicine
DX: M16.12 Unilateral primary osteoarthritis, left hip (principal); I10 Essential (primary) hypertension; N28.9 Disorder of kidney and ureter, unspecified; M06.9 Rheumatoid arthritis, unspecified; I51.9 Heart disease, unspecified; M79.7 Fibromyalgia; Z79.899 Other long term (current) drug therapy; E11.9 Type 2 diabetes mellitus without complications; J44.9 Chronic obstructive pulmonary disease, unspecified
CPT/HCPCS: 20610; 73501; 77002; 82947; J1030; J2704; Q9966

== ENCOUNTER 2021-03-19 10:48 | Day surgery (SDC) | payer MEDICARE ==
[2012-06-02 14:05] VITALS: BP 115/53
[2021-03-19] MEDS ORDERED: Decadron 4 MG INJ IV ONE (10:49)
[2021-03-19] MEDS ORDERED: BUPIVACAINE 0.5% VIAL IJ ONE (10:49)
[2021-03-19] MEDS ORDERED: DIPRIVAN 200 MG/20 ML IV ONE (11:38)
[2021-03-19] MEDS ORDERED: Ketamine HCl 50 MG/ML ONE (11:38)
[2021-03-19] MEDS ORDERED: Lactated Ringers 1,000 ML IV ONE (13:48)
--- NOTE | 2021-03-19 17:00 | XRAY ---
31 seconds of fluoroscopy was used in surgery for a left C2-C4 MBB.
--- NOTE | 2021-03-21 09:17 | XRAY ---
Indication: Left C2-C4 MBB. Intraoperative fluoroscopy was provided for 31 seconds. 2 digital spot images submitted for interpretation demonstrate posterior spinal needle tips projected over the expected course of the left C2-C4 nerve roots. Correlate with intraoperative findings/report.
== END 2021-03-19 12:35 | disposition home or self-care (01) ==
LOC: SDC-PAIN 10:48
PROVIDERS: ATTEND Psychiatry & Neurology Pain Medicine
DX: M47.812 Spondylosis without myelopathy or radiculopathy, cervical region (principal); E11.9 Type 2 diabetes mellitus without complications; Z79.899 Other long term (current) drug therapy
CPT/HCPCS: 64490; 64491; 72040; 77002; 82947; J1100; J2704

== ENCOUNTER 2021-04-16 22:32 | Emergency (ER) | payer MEDICARE ==
--- NOTE | 2021-04-16 23:44 | ERPHSYRPT ---
- History of Present Illness Time Seen by Provider: 04/16/21 22:50 Source: patient Exam Limitations: no limitations Patient Subjective Stated Complaint: pt states she fell in a narrow space and hurt her rt knee, lt wrist, and hit her forehead. denies loss of consiousness. Triage Nursing Assessment: pt alert and oriented, answers questions approp. pt back per wheelchair, transfers to stretcher per self with limping gait noted. bruising and mild swelling noted to rt knee, bruising and abrasion to lt wrost, hematoma noted to lt forehead. pt denies loss of conscioussness. pupils equal and reactive. Physician History: Patient is a 70-year-old female presents to our ED for evaluation status post fall. Patient states she fell in a narrow space. Patient fell just prior to arrival. Patient complains of pain to her right knee her left wrist and her forehead. Patient advises staff that she is currently on Plavix. She denies LOC. Upon arrival to our ED patient was observed to be limping. She has bruising to her right knee left wrist and a forehead hematoma. No other injuries reported. Pain described as an ache. Pain is localized. No radiation. Pain with movement and palpation. Pain improved with rest. The fall was mechanical and not associated with any neuro cardiovascular symptomology. No chest pain or shortness of breath. No nausea vomiting or diaphoresis. No numbness tingling or weakness. Patient voices no other complaints concerns at this time. Timing/Duration: today Severity: moderate Modifying Factors: Improves With: movement Associated Symptoms: denies symptoms Allergies/Adverse Reactions: Penicillins Allergy (Mild, Verified 04/16/21 22:52) itching and hives meperidine HCl [From Demerol] Allergy (Unknown, Verified 04/16/21 22:52) "MAKES CRAZY" Home Medications: Albuterol Sulfate [Ventolin Hfa] 2 puffs IH UD PRN 08/27/19 [History] Ascorbic Acid 500 mg [Vitamin C 500 MG] 500 mg PO DAILY 08/27/19 [History] Betamethasone Valerate 2 gm TP DAILY PRN 08/27/19 [History] Cholecalciferol (Vitamin D3) [Vitamin D3] 1,000 unit PO DAILY 08/27/19 [History] Clobetasol Propionate/Emoll [Clobetasol Emollient 0.05% Crm] 1 gm TP DAILY PRN 08/27/19 [History] Clopidogrel Bisulfate 75 mg [PLAVIX 75 MG Tablet] 75 mg PO DAILY 08/27/19 [History] Cyanocobalamin (Vitamin B-12) [B-12] 1,000 mcg PO DAILY 08/27/19 [History] Cyclobenzaprine HCl 10 mg [Cyclobenzaprine 10 MG] 10 mg PO HS 08/27/19 [History] Furosemide 20 mg [Lasix 20 mg] 10 mg PO DAILY 08/27/19 [History] Hydroxychloroquine Sulfate 200 mg PO BID 08/27/19 [History] Levothyroxine Sodium 50 Mcg [Synthroid 50 Mcg] 50 mcg PO DAILY 08/27/19 [History] Magnesium Oxide 400 mg [Mag-Ox 400] 400 mg PO BID 08/27/19 [History] Montelukast Sodium 10 mg [Singulair 10 MG] 10 mg PO DAILY 08/27/19 [History] [place]-3 Fatty Acids/Fish Oil [Fish Oil 1,000 mg Capsule] 1,200 mg PO DAILY 08/27/19 [History] Potassium Chloride [Klor-Con] 40 meq PO BID 08/27/19 [History] Pregabalin [Lyrica 150Mg] 150 mg PO BID 08/27/19 [History] Simvastatin 40 mg PO HS 08/27/19 [History] Trazodone HCl 150 mg PO HS 08/27/19 [History] Venlafaxine HCl [Effexor Xr] 225 mg PO DAILY 08/27/19 [History] glyBURIDE [Glyburide] 0.625 mg PO DAILY 08/27/19 [History] Omeprazole 40 mg PO DAILY 05/21/20 [History] Budesonide/Glycopyr/Formoterol [Breztri Aerosphere Inhaler] 10.7 gm IH BID 04/16/21 [History] Hydrocodone/Acetaminophen [Hydrocodone-Acetamin 10-325 mg] 1 each PO Q8H PRN PRN 04/16/21 [History] Hx Tetanus, Diphtheria Vaccination/Date Given: Yes Hx Influenza Vaccination/Date Given: Yes Hx Pneumococcal Vaccination/Date Given: Yes Immunizations Up to Date: Yes Travel Risk - International Travel Have you traveled outside of the country in past 3 weeks: No - Coronavirus Screening Are you exhibiting any of the following symptoms?: No Close contact with a COVID-19 positive Pt in past 14-21 Days: No - Vaccine Status Have you recieved a Covid-19 vaccination: Yes [employer]: Moderna - Vaccination Dates Date of 2cond Vaccination (if applicable): 11/09/20 - Review of Systems Constitutional: No Symptoms, No Fever, No Chills Eyes: No Symptoms Ears, Nose, & Throat: No Symptoms Respiratory: No Symptoms, No Cough, No Dyspnea Cardiac: No Symptoms, No Chest Pain, No Edema, No Syncope Abdominal/Gastrointestinal: No Symptoms, No Abdominal Pain, No Nausea, No Vo miting, No Diarrhea Genitourinary Symptoms: No Symptoms, No Dysuria Musculoskeletal: No Symptoms, No Back Pain, No Neck Pain Skin: No Symptoms, No Rash Neurological: No Symptoms, No Dizziness, No Focal Weakness, No Sensory Changes Psychological: No Symptoms Endocrine: No Symptoms Hematologic/Lymphatic: No Symptoms Immunological/Allergic: No Symptoms All Other Systems: Reviewed and Negative - Past Medical History Pertinent Past Medical History: Yes Neurological History: Migraines, TIA ENT History: No Pertinent History Cardiac History: No Pertinent History Respiratory History: Asthma, COPD Endocrine Medical History: Diabetes Type II Musculoskeletal History: Osteoarthritis GI Medical History: Colitis, Diverticulitis, Esophageal Disorder, GERD, Gallbladder Disease, GI Bleed, Hemorrhoids, Irritable Bowel, Polyps History: Other Psycho-Social History: Anxiety, Bipolar, Depression, Panic Disorder Female Reproductive Disorders: No Pertinent History Other Medical History: fatty liver - Past Surgical History Past Surgical History: Yes Neuro Surgical History: No Pertinent History Cardiac: Cardiac Catheterization Respiratory: No Pertinent History Gastrointestinal: Cholecystectomy Genitourinary: No Pertinent History Musculoskeletal: Joint Replacement, Other Female Surgical History: Hysterectomy Other Surgical History: CERIVCAL FUSION AND 5TH,6TH VETEBRAES FUSED. TOTAL RIGHT KNEE, right shoulder rotator cuff and right arm disloation, repair bicep muscle and tendon of right shoulder - Social History Smoking Status: Former smoker Exposure to second hand smoke: Yes Alcohol Use: None Drug Use: none Patient Lives Alone: Yes Significant Family History: diabetes, hypertension - Nursing Vital Signs Nursing Vital Signs: Initial Vital Signs Temperature 98.1 F 09/15/21 22:41 Pulse Rate 73 04/16/21 22:41 Respiratory Rate 16 04/16/21 22:41 Blood Pressure 138/76 04/16/21 22:41 O2 Sat by Pulse Oximetry 97 04/16/21 22:41 Pain Scale Pain Intensity 6 - Physical Exam General Appearance: no apparent distress, alert Eye Exam: PERRL/EOMI, eyes nml inspection Ears, Nose, Throat Exam: normal ENT inspection, TMs normal, pharynx normal, moist mucous membranes Neck Exam: normal inspection, non-tender, supple, full range of motion Respiratory Exam: normal breath sounds, lungs clear, No respiratory distress Cardiovascular Exam: regular rate/rhythm, normal heart sounds, normal peripheral pulses Gastrointestinal/Abdomen Exam: soft, normal bowel sounds, No tenderness, No mass Back Exam: normal inspection, normal range of motion, No CVA tenderness, No vertebral tenderness Extremity Exam: normal inspection, normal range of motion, pelvis stable, other (Bruising to left forearm. Extremities neurovascular intact distally. Compartments are soft. No open draining lesions. Cap refill less than 2 seconds. There is a contusion to the medial aspect of the right knee. Extremities otherwise neurovascularly intact. Neurologic exam is normal. Patient ) Neurologic Exam: alert, oriented x 3, cooperative, normal mood/affect, nml cerebellar function, nml station & gait, sensation nml, No motor deficits, No intoxicated appearance, No facial droop, No abnormal gait Skin Exam: normal color, warm, dry, No rash Lymphatic Exam: No adenopathy SpO2 Interpretation: normal SpO2: 97 O2 Delivery: Room Air - Course Nursing assessment & vital signs reviewed: Yes - Radiology Exams Wrist X-ray Interpretation: Interpreted by me (No fractures or dislocations. Soft tissue swelling observed. Osteopenia and degenerative arthritis of wrist and hand joints.) Knee X-ray Interpretation: Interpreted by me (Osteopenia intact knee hardware no fractures or dislocations. No soft tissue abnormalities.) - CT Exams Head CT Interpretation: Tele-radiologist Report (No intracranial hemorrhage. No midline shift. The brain parenchyma appears normal for age. Sinuses are unremarkable. Visualized mastoid air cells are aerated. No acute fractures. Left frontal soft tissue contusion.) Ordered Tests: Active Orders 24 hr Category Date Time Status HEAD WITHOUT CONTRAST [CT] Stat Exams 04/16/21 23:02 Ordered KNEE (3 VIEWS) Stat Exams 04/16/21 23:01 Ordered WRIST (MIN 3 VIEWS) Stat Exams 04/16/21 23:01 Ordered - Progress Progress: improved Progress Note: Patient reassessed. She feels well. Patient declined pain medication. Patient has [place] tens with her as a prescription. X-ray of the right knee and left wrist were reviewed. No fractures or dislocations. There is osteopenia and degenerative arthritis. No acute processes observed. CT head negative for acute intracranial pathology. Patient has a left forehead contusion. No indication for further work-up at this time. Neurologic exam is normal. Patient agrees to follow-up with her primary care doctor within 48 hours. She voices no other complaints or concerns at this time. Will discharge home. Portions of this note were created with voice recognition technology. There may be grammatical, spelling, punctuation or sound alike errors 04/16/21 23:59 Counseled pt/family regarding: diagnosis, need for follow-up, rad results - Departure Departure Disposition: Home Clinical Impression: Fall, Forehead contusion, Osteopenia, Arthritis, Contusion of knee, right Condition: Stable Critical Care Time: No Referrals: ADIN MARSH [Primary Care Provider] - Additional Instructions: Discharge/Care Plan RUBYSILVESTRE STERLING was seen on 04/16/21 in the Emergency Room. The patient was counseled regarding Diagnosis,Lab results, Imaging studies, need for follow up and when to return to the Emergency Room. Prescriptions given: Discharge Note I have spoken with the patient and/or caregivers. I have explained the patient's condition, diagnosis and treatment plan based on the information available to me at this time. I have answered the patient's and/or caregiver's questions and addressed any concerns. The patient and/or caregivers have as good understanding of the patient's diagnosis, condition and treatment plan as can be expected at this point. The vital signs have been stable. The patient's condition is stable and appropriate for discharge from the emergency department. The patient will pursue further outpatient evaluation with the primary care physician or other designated or consulting physician as outlined in the discharge instructions. The patient and/or caregivers are agreeable to this plan of care and follow-up instructions have been explained in detail. The patient and/or caregivers have received these instruction. The patient/and or caregivers are aware that any significant change in condition or worsening of symptoms should prompt an immediate return to this or the closest emergency department or call 911.
[2021-04-16 23:58] VITALS: O2SAT 97
[2021-04-17 00:13] VITALS: BP 127/77; PULSE 68
--- NOTE | 2021-04-17 08:45 | XRAY ---
Indication: Left frontal head injury following fall. Blood thinner therapy. Multiple contiguous images obtained through the head without contrast. Comparison: August 27, 2019. Normal appearing brain parenchyma, ventricles, and bony calvarium for patient's age. New small left frontal scalp soft tissue swelling/hematoma. Visualized paranasal sinuses and mastoid air cells are clear. Impression: Left frontal scalp soft tissue swelling/hematoma. No underlying fracture or acute intracranial abnormalities. Comment: Preliminary interpretation made by [facility]. No critical discrepancy.
--- NOTE | 2021-04-17 08:47 | XRAY ---
Indication: Pain following fall. Comparison: September 26, 2020. 3 view right knee unchanged again demonstrating osteopenia, total knee arthroplasty with intact prosthesis, benign distal femur sclerotic lesion, and small posterior fabella. No new/acute abnormalities.
--- NOTE | 2021-04-17 08:49 | XRAY ---
Indication: Pain following fall. Comparison: None 3 view left wrist demonstrates osteopenia, radiocarpal degenerative joint space narrowing, faint ulnocarpal degenerative chondrocalcinosis, and advanced degenerative changes 1st metacarpal multangular scaphoid articulation. No other bony, articular, or soft tissue abnormalities.
== END 2021-04-17 00:25 | disposition home or self-care (01) ==
LOC: ED 22:32
DX: S00.83XA Contusion of other part of head, initial encounter (principal); W18.30XA Fall on same level, unspecified, initial encounter; Y93.9 Activity, unspecified; M25.461 Effusion, right knee; S80.01XA Contusion of right knee, initial encounter; Z79.899 Other long term (current) drug therapy
CPT/HCPCS: 70450; 73110; 73562; 99284

== ENCOUNTER 2021-05-09 15:25 | Emergency (ER) | payer MEDICARE ==
[2021-05-09] MEDS ORDERED: Sodium Chloride 0.9% 1000 ML 1,000 ML IV STA (15:47)
[2021-05-09 16:18] LABS: BASOPHIL % 0.6 % (0.0-0.4); Basophil (Absolute #) 0.06 (0-0.4); Eosinophil % 0.4 % (0.00-5.0); Eosinophil (Absolute #) 0.04 (0-0.5); Hematocrit 36.2 % (35-47); Hemoglobin 11.4 gm/dl (12.0-16.0); Lymphocyte (Absolute #) 1.65 (1.0-4.6); Lymphocytes % 15.7 % (24.0-44.0); Mean Corpuscular Hemoglobin 29.9 pg (26-32); Mean Corpuscular Hgb Concent. 31.5 g/dl (32-36); Mean Platelet Volume 10.7 fl (7.5-11.0); Monocyte (Absolute #) 0.53 (0.0-1.3); Monocytes % 5.1 % (0.0-12.0); Neutrophil % 78.2 % (36.0-66.0); Platelet Count 266 K/mm3 (150-450); Red Blood Count 3.81 M/mm3 (4.1-5.4); Red Cell Distribution Width 16.6 % (11.5-14.0); White Blood Count 10.5 K/mm3 (4.0-10.5)
[2021-05-09 16:31] LABS: ALKALINE PHOSPHATASE 91 U/L (38-126); AMYLASE 59 U/L (30-110); ANION GAP 13.5 MEQ/L (5-15); BLOOD UREA NITROGEN 10 mg/dL (7-17); CHLORIDE 101 mmol/L (98-107); Calcium 9.6 mg/dL (8.4-10.2); Carbon Dioxide 26 mmol/L (22-30); Creatinine 1 0.62 mg/dL (0.52-1.04); EST GLOMERULAR FILTRATION RATE > 60.0 ML/MIN; Glucose 105 mg/dL (74-106); LIPASE 31 U/L (23-300); Potassium 3.5 mmol/L (3.5-5.1); SGOT/AST 30 U/L (14-36); SGPT/ALT 19 U/L (0-35); SODIUM 137 mmol/L (137-145); Total Protein 6.8 g/dL (6.3-8.2)
[2021-05-09] MEDS ORDERED: Sodium Chloride 0.9% 1000 ML 1,000 ML ONE (17:00)
[2021-05-09 17:08] VITALS: O2SAT 98
[2021-05-09 17:31] LABS: Appearance CLEAR (CLEAR); Bilirubin NEGATIVE (NEGATIVE); Blood SMALL Ery/ul (0-5); Glucose NEGATIVE (NEGATIVE); Ketones NEGATIVE (NEGATIVE); Leukocyte Esterase NEGATIVE (NEGATIVE); Nitrite NEGATIVE (NEGATIVE); Protein,Urine Dip NEGATIVE (Negative); Specific Gravity 1.004 (1.005-1.025); Urobilinogen NEGATIVE mg/dL (0-1)
--- NOTE | 2021-05-09 20:04 | ERPHSYRPT ---
- History of Present Illness Time Seen by Provider: 05/09/21 15:45 Historian: patient Exam Limitations: no limitations Patient Subjective Stated Complaint: pt here for weakness, chronic abd pain, not wanting to eat for a couple days now Triage Nursing Assessment: pt arrived per , able to get from to bed with assist of one, she is alert with verbal stimulation but falls a sleep easily. pt fell 2 weeks ago and had a ct of head which was negative Physician History: Patient is a 70-year-old female who presents with a complaint of having fallen 2 weeks ago and suffering a head injury. She is on Plavix was brought to the ER here and was CT had which was negative she says she has continued to have episodes of sleepiness drowsiness headache not feeling right. She also has been exhausted. She also says that she has had some abdomen which she rates 10 of 10 she is not been eating or drinking. Timing/Duration: week(s) (2) Activities at Onset: activity Quality: fullness Abdominal Pain Onset Location: generalized abdomen Pain Radiation: no radiation Severity of Pain-Max: moderate Severity of Pain-Current: mild Modifying Factors: Improves With: lying down, rest Associated Symptoms: loss of appetite Allergies/Adverse Reactions: Penicillins Allergy (Mild, Verified 05/09/21 15:41) itching and hives meperidine HCl [From Demerol] Allergy (Unknown, Verified 05/09/21 15:41) "MAKES CRAZY" Home Medications: Albuterol Sulfate [Ventolin Hfa] 2 puffs IH UD PRN 08/27/19 [History] Ascorbic Acid 500 mg [Vitamin C 500 MG] 500 mg PO DAILY 08/27/19 [History] Betamethasone Valerate 2 gm TP DAILY PRN 08/27/19 [History] Cholecalciferol (Vitamin D3) [Vitamin D3] 1,000 unit PO DAILY 08/27/19 [History] Clobetasol Propionate/Emoll [Clobetasol Emollient 0.05% Crm] 1 gm TP DAILY PRN 08/27/19 [History] Clopidogrel Bisulfate 75 mg [PLAVIX 75 MG Tablet] 75 mg PO DAILY 08/27/19 [History] Cyanocobalamin (Vitamin B-12) [B-12] 1,000 mcg PO DAILY 08/27/19 [History] Cyclobenzaprine HCl 10 mg [Cyclobenzaprine 10 MG] 10 mg PO HS 08/27/19 [History] Furosemide 20 mg [Lasix 20 mg] 10 mg PO DAILY 08/27/19 [History] Hydroxychloroquine Sulfate 200 mg PO BID 08/27/19 [History] Levothyroxine Sodium 50 Mcg [Synthroid 50 Mcg] 50 mcg PO DAILY 08/27/19 [History] Magnesium Oxide 400 mg [Mag-Ox 400] 400 mg PO BID 08/27/19 [History] Montelukast Sodium 10 mg [Singulair 10 MG] 10 mg PO DAILY 08/27/19 [History] Fithian-3 Fatty Acids/Fish Oil [Fish Oil 1,000 mg Capsule] 1,200 mg PO DAILY 08/27/19 [History] Potassium Chloride [Klor-Con] 40 meq PO BID 08/27/19 [History] Pregabalin [Lyrica 150Mg] 150 mg PO BID 08/27/19 [History] Simvastatin 40 mg PO HS 08/27/19 [History] Trazodone HCl 150 mg PO HS 08/27/19 [History] Venlafaxine HCl [Effexor Xr] 225 mg PO DAILY 08/27/19 [History] glyBURIDE [Glyburide] 0.625 mg PO DAILY 08/27/19 [History] Omeprazole 40 mg PO DAILY 05/21/20 [History] Budesonide/Glycopyr/Formoterol [Breztri Aerosphere Inhaler] 10.7 gm IH BID 04/16/21 [History] Hydrocodone/Acetaminophen [Hydrocodone-Acetamin 10-325 mg] 1 each PO Q8H PRN PRN 04/16/21 [History] Hx Tetanus, Diphtheria Vaccination/Date Given: Yes Hx Influenza Vaccination/Date Given: Yes Hx Pneumococcal Vaccination/Date Given: Yes Immunizations Up to Date: Yes Travel Risk - International Travel Have you traveled outside of the country in past 3 weeks: No - Coronavirus Screening Are you exhibiting any of the following symptoms?: No Close contact with a COVID-19 positive Pt in past 14-21 Days: No - Vaccine Status Have you recieved a Covid-19 vaccination: Yes 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 - Vaccination Dates Date of 2cond Vaccination (if applicable): 11/09/20 - Review of Systems Constitutional: Lethargy, No Fever, No Chills Eyes: No Symptoms Ears, Nose, & Throat: No Symptoms Respiratory: No Cough, No Dyspnea Cardiac: No Chest Pain, No Edema, No Syncope Abdominal/Gastrointestinal: Abdominal Pain, Appetite Changes, No Nausea, No Vomiting, No Diarrhea Genitourinary Symptoms: No Dysuria Musculoskeletal: No Back Pain, No Neck Pain Skin: No Rash Neurological: No Dizziness, No Focal Weakness, No Sensory Changes Psychological: No Symptoms Endocrine: No Symptoms All Other Systems: Reviewed and Negative - Past Medical History Pertinent Past Medical History: Yes Neurological History: Migraines, TIA ENT History: No Pertinent History Cardiac History: No Pertinent History Respiratory History: Asthma, COPD Endocrine Medical History: Diabetes Type II Musculoskeletal History: Osteoarthritis GI Medical History: Colitis, Diverticulitis, Esophageal Disorder, GERD, Gallbladder Disease, GI Bleed, Hemorrhoids, Irritable Bowel, Polyps History: Other Psycho-Social History: Anxiety, Bipolar, Depression, Panic Disorder Female Reproductive Disorders: No Pertinent History Other Medical History: fatty liver - Past Surgical History Past Surgical History: Yes Neuro Surgical History: No Pertinent History Cardiac: Cardiac Catheterization Respiratory: No Pertinent History Gastrointestinal: Cholecystectomy Genitourinary: No Pertinent History Musculoskeletal: Joint Replacement, Other Female Surgical History: Hysterectomy Other Surgical History: CERIVCAL FUSION AND 5TH,6TH VETEBRAES FUSED. TOTAL RIGHT KNEE, right shoulder rotator cuff and right arm disloation, repair bicep muscle and tendon of right shoulder - Social History Smoking Status: Former smoker Exposure to second hand smoke: Yes Alcohol Use: None Drug Use: none Patient Lives Alone: Yes Significant Family History: diabetes, hypertension - Female History Hx Last Menstrual Period: post Hx Now: No - Nursing Vital Signs Nursing Vital Signs: Initial Vital Signs Temperature 97.0 F 05/09/21 15:35 Pulse Rate 69 05/09/21 15:35 Respiratory Rate 17 05/09/21 15:35 Blood Pressure 150/77 05/09/21 15:35 O2 Sat by Pulse Oximetry 100 05/09/21 15:35 Pain Scale Pain Intensity 2 - Physical Exam General Appearance: mild distress, alert Eye Exam: PERRL/EOMI, eyes nml inspection Ears, Nose, Throat Exam: normal ENT inspection, pharynx normal, moist mucous membranes Neck Exam: normal inspection, non-tender, supple, full range of motion Respiratory Exam: normal breath sounds, lungs clear, No respiratory distress Cardiovascular Exam: regular rate/rhythm, normal heart sounds Gastrointestinal/Abdomen Exam: soft, No tenderness, No mass Back Exam: normal inspection, normal range of motion, No CVA tenderness, No vertebral tenderness Extremity Exam: normal inspection, normal range of motion, pelvis stable Neurologic Exam: alert, oriented x 3, cooperative, normal mood/affect, nml cerebellar function, sensation nml, No motor deficits Skin Exam: normal color, warm, dry SpO2: 98 - Course Nursing assessment & vital signs reviewed: Yes EKG Interpreted by Me: RATE (68), Sinus Rhythm, NORMAL AXIS, NORMAL INTERVALS, NORMAL QRS, Non-specific ST Changes - Radiology Exams Chest X-ray Interpretation: Interpreted by me, Negative (No acute changes) - CT Exams Head CT Interpretation: Other (No acute changes) Abdomen/Pelvis CT Interpretation: Negative Ordered Tests: Active Orders 24 hr Category Date Time Status EKG-ER Only STAT Care 05/09/21 15:47 Active IV Insertion STAT Care 05/09/21 15:47 Active ABDOMEN AND PELVIS W CONTRAST [CT] Routine Exams 05/09/21 18:22 Taken CHEST 1 VIEW (PORTABLE) Stat Exams 05/09/21 15:47 Taken HEAD WITHOUT CONTRAST [CT] Stat Exams 05/09/21 15:49 Taken AMYLASE Stat Lab 05/09/21 16:19 Completed CBC W DIFF Stat Lab 05/09/21 16:19 Completed CMP Stat Lab 05/09/21 16:19 Completed FECAL OCCULT BLOOD - SCREENING Stat Lab 05/09/21 15:47 Ordered LIPASE Stat Lab 05/09/21 16:19 Completed Lactic Acid Stat Lab 05/09/21 16:19 Completed Lactic Acid Stat Lab 05/09/21 18:22 Received TROPONIN Q3H Lab 05/09/21 16:19 Completed TROPONIN Q3H Lab 05/10/21 01:00 Ordered TROPONIN Q3H Lab 05/10/21 04:00 Ordered UA W/RFX UR CULTURE Stat Lab 05/09/21 17:07 Completed Medication Summary Discontinued Medications Generic Name Dose Route Start Last Admin Trade Name Freq PRN Reason Stop Dose Admin Sodium Chloride 1,000 mls @ 999 mls/hr 05/09/21 15:47 10/08/21 18:54 Sodium Chloride 0.9% 1000 Ml IV 05/09/21 16:47 Infused .Q1H1M STA Infusion Sodium Chloride Confirm 05/09/21 17:00 Sodium Chloride 0.9% 1000 Ml Administered 05/09/21 17:01 Dose 1,000 mls @ ud .ROUTE .STK-MED ONE Lab/Rad Data: Laboratory Result Diagrams 05/09/21 16:19 05/09/21 16:19 Laboratory Results 05/09/21 05/09/21 05/09/21 Range/Units 17:07 16:19 16:19 WBC (4.0-10.5) K/mm3 RBC (4.1-5.4) M/mm3 Hgb (12.0-16.0) gm/dl Hct (35-47) % MCV (78-100) fl MCH (26-32) pg MCHC (32-36) g/dl RDW (11.5-14.0) % Plt Count (150-450) K/mm3 MPV (7.5-11.0) fl Gran % (36.0-66.0) % Eos # (Auto) (0-0.5) Absolute Lymphs (auto) (1.0-4.6) Absolute Monos (auto) (0.0-1.3) Lymphocytes % (24.0-44.0) % Monocytes % (0.0-12.0) % Eosinophils % (0.00-5.0) % Basophils % (0.0-0.4) % Absolute Granulocytes (1.4-6.9) Basophils # (0-0.4) Sodium 137 (137-145) mmol/L Potassium 3.5 (3.5-5.1) mmol/L Chloride 101 (98-107) mmol/L Carbon Dioxide 26 (22-30) mmol/L Anion Gap 13.5 (5-15) MEQ/L BUN 10 (7-17) mg/dL Creatinine 0.62 (0.52-1.04) mg/dL Estimated GFR > 60.0 ML/MIN Glucose 105 (74-106) mg/dL Lactic Acid (0.4-2.0) Calcium 9.6 (8.4-10.2) mg/dL Total Bilirubin 0.50 (0.2-1.3) mg/dL AST 30 (14-36) U/L ALT 19 (0-35) U/L Alkaline Phosphatase 91 (38-126) U/L Troponin I < 0.012 (0.000-0.034) ng/mL Serum Total Protein 6.8 (6.3-8.2) g/dL Albumin 4.0 (3.5-5.0) g/dL Amylase 59 (30-110) U/L Lipase 31 (23-300) U/L Urine Color STRAW (YELLOW) Urine Appearance CLEAR (CLEAR) Urine pH 5.0 (5-6) Ur Specific [place] 1.004 (1.005-1.025) Urine Protein NEGATIVE (Negative) Urine Ketones NEGATIVE (NEGATIVE) Urine Blood SMALL (0-5) Jez/ul Urine Nitrite NEGATIVE (NEGATIVE) Urine Bilirubin NEGATIVE (NEGATIVE) Urine Urobilinogen NEGATIVE (0-1) mg/dL Ur Leukocyte Esterase NEGATIVE (NEGATIVE) Urine WBC (Auto) NONE (0-5) /HPF Urine RBC (Auto) NONE (0-2) /HPF U Epithel Cells (Auto) NONE (FEW) /HPF Urine Bacteria (Auto) NONE (NEGATIVE) /HPF Urine Culture Reflexed NO (NO) Urine Glucose NEGATIVE (NEGATIVE) mg/dL 05/09/21 05/09/21 Range/Units 16:19 16:19 WBC 10.5 (4.0-10.5) K/mm3 RBC 3.81 L (4.1-5.4) M/mm3 Hgb 11.4 L (12.0-16.0) gm/dl Hct 36.2 (35-47) % MCV 95.0 (78-100) fl MCH 29.9 (26-32) pg MCHC 31.5 L (32-36) g/dl RDW 16.6 H (11.5-14.0) % Plt Count 266 (150-450) K/mm3 MPV 10.7 (7.5-11.0) fl Gran % 78.2 H (36.0-66.0) % Eos # (Auto) 0.04 (0-0.5) Absolute Lymphs (auto) 1.65 (1.0-4.6) Absolute Monos (auto) 0.53 (0.0-1.3) Lymphocytes % 15.7 L (24.0-44.0) % Monocytes % 5.1 (0.0-12.0) % Eosinophils % 0.4 (0.00-5.0) % Basophils % 0.6 (0.0-0.4) % Absolute Granulocytes 8.20 H (1.4-6.9) Basophils # 0.06 (0-0.4) Sodium (137-145) mmol/L Potassium (3.5-5.1) mmol/L Chloride (98-107) mmol/L Carbon Dioxide (22-30) mmol/L Anion Gap (5-15) MEQ/L BUN (7-17) mg/dL Creatinine (0.52-1.04) mg/dL Estimated GFR ML/MIN Glucose (74-106) mg/dL Lactic Acid 2.0 (0.4-2.0) Calcium (8.4-10.2) mg/dL Total Bilirubin (0.2-1.3) mg/dL AST (14-36) U/L ALT (0-35) U/L Alkaline Phosphatase (38-126) U/L Troponin I (0.000-0.034) ng/mL Serum Total Protein (6.3-8.2) g/dL Albumin (3.5-5.0) g/dL Amylase (30-110) U/L Lipase (23-300) U/L Urine Color (YELLOW) Urine Appearance (CLEAR) Urine pH (5-6) Ur Specific [place] (1.005-1.025) Urine Protein (Negative) Urine Ketones (NEGATIVE) Urine Blood (0-5) Jez/ul Urine Nitrite (NEGATIVE) Urine Bilirubin (NEGATIVE) Urine Urobilinogen (0-1) mg/dL Ur Leukocyte Esterase (NEGATIVE) Urine WBC (Auto) (0-5) /HPF Urine RBC (Auto) (0-2) /HPF U Epithel Cells (Auto) (FEW) /HPF Urine Bacteria (Auto) (NEGATIVE) /HPF Urine Culture Reflexed (NO) Urine Glucose (NEGATIVE) mg/dL - Progress Progress: improved - Departure Departure Disposition: Home Clinical Impression: Postconcussion syndrome Condition: Stable Critical Care Time: No Referrals: ADIN MARSH [Primary Care Provider] - Instructions: Postconcussion Syndrome (DC)
[2021-05-09 20:14] VITALS: BP 136/68; PULSE 68
--- NOTE | 2021-05-09 22:10 | XRAY ---
Indication: Loss of consciousness after fall. Multiple contiguous axial images obtained through the head without contrast. Comparison: April 16, 2021. Age-appropriate global atrophy. No acute intracranial hemorrhage, abnormal extra-axial fluid collection, or mass effect. Fourth ventricle is midline without hydrocephalus. Vivar-white matter differentiation preserved. Bony calvarium intact. Visualized paranasal sinuses and mastoid air cells are clear. Impression: Continued negative CT head without contrast exam. Comment: Preliminary interpretation made by [facility]. No critical discrepancy.
--- NOTE | 2021-05-09 22:12 | XRAY ---
Indication: Umbilical pain. Multiple contiguous axial images obtained through the abdomen and pelvis using 80 cc Isovue 370 contrast. Comparison: January 26, 2020. Lung bases are clear. Heart not enlarged. Noncontrasted stomach and bowel loops are nonobstructed. Again appendectomy, hysterectomy, and cholecystectomy. Stable fatty liver. No free fluid/air. Remaining liver, pancreas, spleen, adrenal glands, kidneys, ureters, and bladder are unremarkable. Stable minimal aortoiliac calcifications. No AAA or pathologic retroperitoneal lymphadenopathy. Osseous structures intact again with mild degenerative changes throughout the spine, minimal grade 1 L4 spinal listhesis, and moderate degenerative changes of both hips. Again incidental small fatty right inguinal hernia. Impression: 1. Stable fatty liver, small fatty right inguinal hernia, and chronic bony findings. 2. Remaining CT abdomen/pelvis with contrast exam is again negative. Comment: Preliminary interpretation made by C. No critical discrepancy.
--- NOTE | 2021-05-09 22:14 | XRAY ---
Indication: Pain. COPD. Comparison: August 27, 2019. Portable apical lordotic chest remains hyperinflated and clear. Heart borderline enlarged. Bony thorax intact again with mild osteopenia and degenerative changes. Impression: Nonacute chest with chronic features.
== END 2021-05-09 20:21 | disposition home or self-care (01) ==
LOC: ED 15:25
DX: F07.81 Postconcussional syndrome (principal); R53.1 Weakness; Z79.899 Other long term (current) drug therapy; Z79.01 Long term (current) use of anticoagulants; R10.9 Unspecified abdominal pain; E11.9 Type 2 diabetes mellitus without complications; Z86.73 Personal history of transient ischemic attack (TIA), and cerebral infarction without residual deficits; J44.9 Chronic obstructive pulmonary disease, unspecified
CPT/HCPCS: 36000; 36415; 70450; 71045; 74177; 80053; 81001; 82150; 83605; 83690; 84484; 85025; 93005; 96360; 99284

== ENCOUNTER 2021-06-19 06:10 | Day surgery (SDC) | payer MEDICARE ==
[2021-06-19] MEDS ORDERED: Lactated Ringers 1,000 ML IV SCH (06:30)
[2021-06-19] MEDS ORDERED: DIPRIVAN 200 MG/20 ML IV ONE (07:00)
[2021-06-19] MEDS ORDERED: Xylocaine-Mpf 2% 5 Ml Vial ONE (07:00)
--- NOTE | 2021-06-19 08:35 | OP ---
SURGERY DATE/TIME: 06/19/2021 0706 PREOPERATIVE DIAGNOSES: 1) Abdominal pain. 2) Constipation. POSTOPERATIVE DIAGNOSES: 1) Mild gastritis. 2) Normal colon. PROCEDURES: 1) EGD. 2) Colonoscopy. SURGEON: Fernando Wood M.D. ANESTHESIA: MAC by Meliton Burks CRNA. ESTIMATED BLOOD LOSS: Minimal. SPECIMENS: Two cold forceps biopsies from the gastric antrum were sent for Helicobacter pylori testing. DESCRIPTION OF PROCEDURE: After informed written consent was obtained, the patient was taken to the endoscopy suite. She had a bite block inserted and placed in the left lateral decubitus position. Anesthesia was titrated to desired level of consciousness and the endoscope was inserted in the posterior oropharynx. Under direct visualization the esophagus was easily traversed. There was a normal mucosal appearance in the esophageal mucosa. The gastroesophageal junction likewise appeared normal. Upon entering into the stomach there is normal rugated gastric mucosa. There was some mild gastritis-type changes in the antrum with no active bleeding or focal ulceration. The pylorus traversed and the first and second portions of the duodenum were free of any mucosal abnormalities. Two cold forceps biopsies were taken from the gastric antrum and sent for Helicobacter pylori testing. Upon withdrawal again there were no other mucosal abnormalities appreciable. The scope was removed and the scopes were switched. Digital rectal exam showed normal sphincter tone and no internal lesions. The scope was inserted in the rectum and sequentially the entire colonic mucosa was traversed. The level of the cecum was reached and verified with direct visualization of the ileocecal valve. Upon withdrawal careful mucosal inspection revealed no gross abnormalities, prep was noted to be fair to poor in some areas as there was some mucous but overall the exam was felt to be satisfactory. There were no obvious mucosal abnormalities or lesions encountered. Prior to withdrawal retroflexion was performed and showed no internal lesions. The scope was removed. The patient was transferred to the recovery room in good condition.
[2021-06-23 16:56] VITALS: BP 129/77; PULSE 71; O2SAT 94
== END 2021-06-19 08:52 | disposition home or self-care (01) ==
LOC: SDC 06:10
PROVIDERS: ATTEND Family Medicine
DX: K29.70 Gastritis, unspecified, without bleeding (principal); K59.00 Constipation, unspecified; I11.9 Hypertensive heart disease without heart failure; E11.9 Type 2 diabetes mellitus without complications; A04.8 Other specified bacterial intestinal infections
CPT/HCPCS: 82947; 88305; 88312; J2704

== ENCOUNTER 2021-09-03 08:28 | Day surgery (SDC) | payer MEDICARE ==
[2012-06-02 14:05] VITALS: BP 115/53
[2021-09-03] MEDS ORDERED: Decadron 4 MG INJ IJ ONE (08:29)
[2021-09-03] MEDS ORDERED: Depo-Medrol 40 MG/ML IM ONE (08:29)
[2021-09-03] MEDS ORDERED: Xylocaine 1% Vial 30 ML PF IJ ONE (08:29)
[2021-09-03] MEDS ORDERED: BUPIVACAINE 0.5% VIAL IJ ONE ×2 (08:29)
[2021-09-03] MEDS ORDERED: DIPRIVAN 200 MG/20 ML IV ONE (09:41)
--- NOTE | 2021-09-03 10:55 | XRAY ---
6 seconds fluoroscopy time in surgery for injection of the left piriformis muscle.
--- NOTE | 2021-09-03 10:55 | XRAY ---
Indication: Left hip and greater trochanter bursa injections. Intraoperative fluoroscopy provided for 15 seconds. 2 digital spot image obtained prone submitted for interpretation demonstrates needle tip projecting lateral to the left femur neck and left greater trochanter. Small amount of contrast injected for both needle tip placement. Correlate with intraoperative findings/report.
--- NOTE | 2021-09-03 11:05 | XRAY ---
Indication: Left piriformis injection. Intraoperative fluoroscopy provided for 6 seconds. Single digital spot image submitted for interpretation demonstrates posterior needle tip projecting over the expected left piriformis muscle. Small amount of contrast injected for needle tip placement. Correlate with intraoperative findings/report.
--- NOTE | 2021-09-03 11:05 | XRAY ---
15 seconds fluoroscopy time in surgery for injections of the left greater trochanter and intra-articular joint space.
[2021-09-03] MEDS ORDERED: Lactated Ringers 1,000 ML IV ONE (11:20)
== END 2021-09-03 10:15 | disposition home or self-care (01) ==
LOC: SDC-PAIN 08:28
PROVIDERS: ATTEND Psychiatry & Neurology Pain Medicine
DX: M16.12 Unilateral primary osteoarthritis, left hip (principal); M70.62 Trochanteric bursitis, left hip; M79.18 Myalgia, other site; I10 Essential (primary) hypertension; E11.9 Type 2 diabetes mellitus without complications; Z79.899 Other long term (current) drug therapy
CPT/HCPCS: 20610; 72020; 73502; 77002; 82947; J1030; J1100; J2001; J2704; Q9966

== ENCOUNTER 2021-09-25 09:36 | Day surgery (SDC) | payer MEDICARE ==
[2012-06-02 14:05] VITALS: BP 115/53
[2021-09-25] MEDS ORDERED: Depo-Medrol 40 MG/ML IM ONE (09:37)
[2021-09-25] MEDS ORDERED: Decadron 4 MG INJ IV ONE (09:37)
[2021-09-25] MEDS ORDERED: BUPIVACAINE 0.5% VIAL IJ ONE (09:37)
[2021-09-25] MEDS ORDERED: Lactated Ringers 1,000 ML IV ONE (10:29)
[2021-09-25] MEDS ORDERED: DIPRIVAN 200 MG/20 ML IV ONE (10:56)
--- NOTE | 2021-09-26 09:55 | XRAY ---
Indication: Left knee and pes anserine bursa injection. Intraoperative fluoroscopy provided for 9 seconds. Single digital spot image submitted for interpretation demonstrates needle tip projecting left femur intercondylar notch. Small amount of contrast injected for needle tip placement. Correlate with intraoperative findings/report.
--- NOTE | 2021-09-26 09:57 | XRAY ---
9 seconds of fluoroscopy was used in surgery for a left knee intra-articular and pes anserine bursa injection.
== END 2021-09-25 11:17 | disposition home or self-care (01) ==
LOC: SDC-PAIN 09:36
PROVIDERS: ATTEND Psychiatry & Neurology Pain Medicine
DX: M17.12 Unilateral primary osteoarthritis, left knee (principal); E11.9 Type 2 diabetes mellitus without complications; Z79.899 Other long term (current) drug therapy
CPT/HCPCS: 20610; 73560; 77002; 82947; J1030; J1100; J2704; Q9966

== ENCOUNTER 2022-12-28 12:30 | Emergency (ER) | payer MEDICARE ==
--- NOTE | 2022-12-28 14:16 | ERPHSYRPT ---
- History of Present Illness Time Seen by Provider: 12/28/22 12:53 Source: patient Exam Limitations: no limitations Patient Subjective Stated Complaint: C/O pain to left shoulder and clavicle after a fall in her home yesterday evening. Patient denies hitting her head or losing conciousness. She states she just tripped over her own feet. Triage Nursing Assessment: Patient brought back to ER in a w/c. She is alert and oriented. No SOB. She is gaurding her left upper arm. Bruising noted to posterior side of LUE. Radial pulse present. Anterior clavicle area where pain is voiced is swollen. Physician History: 72-year-old female presented in the ER with chief complaint of left shoulder and clavicle area pain after she tripped and fell on her entertainment center yesterday/last night. Did not hit her head, no loss of consciousness. She has abrasion on the inner aspect of upper arm. Pain is reproducible with movements and palpation. No numbness tingling or weakness of left upper extremity. No chest pain otherwise. No difficulty breathing. Occurred: yesterday Method of Injury: fell Quality: sharpness Severity of Pain-Max: moderate Severity of Pain-Current: moderate Extremities Pain Location: shoulder: left Modifying Factors: Improves With: immobilization. Worsens With: movement Associated Symptoms: none Allergies/Adverse Reactions: Penicillins Allergy (Mild, Verified 12/28/22 13:06) itching and hives meperidine HCl [From Demerol] Allergy (Unknown, Verified 12/28/22 13:06) "MAKES CRAZY" Home Medications: Albuterol Sulfate [Ventolin Hfa] 2 puffs IH UD PRN 08/27/19 [History] Ascorbic Acid 500 mg [Vitamin C 500 MG] 500 mg PO DAILY 08/27/19 [History] Betamethasone Valerate 2 gm TP DAILY PRN 08/27/19 [History] Cholecalciferol (Vitamin D3) [Vitamin D3] 1,000 unit PO DAILY 08/27/19 [History] Cyanocobalamin (Vitamin B-12) [B-12] 1,000 mcg PO DAILY 08/27/19 [History] Cyclobenzaprine HCl 10 mg [Cyclobenzaprine 10 MG] 10 mg PO HS 08/27/19 [History] Furosemide 20 mg [Lasix 20 mg] 10 mg PO DAILY 08/27/19 [History] Hydroxychloroquine Sulfate 200 mg PO BID 08/27/19 [History] Levothyroxine Sodium 50 Mcg [Synthroid 50 Mcg] 50 mcg PO DAILY 08/27/19 [History] Magnesium Oxide 400 mg [Mag-Ox 400] 400 mg PO BID 08/27/19 [History] [place]-3 Fatty Acids/Fish Oil [Fish Oil 1,000 mg Capsule] 1,200 mg PO DAILY 08/27/19 [History] Potassium Chloride [Klor-Con] 40 meq PO BID 08/27/19 [History] Pregabalin [Lyrica 150Mg] 150 mg PO BID 08/27/19 [History] Simvastatin 40 mg PO HS 08/27/19 [History] Trazodone HCl 150 mg PO HS 08/27/19 [History] Venlafaxine HCl [Effexor Xr] 225 mg PO DAILY 08/27/19 [History] Omeprazole 40 mg PO DAILY 05/21/20 [History] Budesonide/Glycopyr/Formoterol [Breztri Aerosphere Inhaler] 10.7 gm IH BID 04/16/21 [History] Hydrocodone/Acetaminophen [Hydrocodone-Acetamin 10-325 mg] 1 each PO Q8H PRN PRN 04/16/21 [History] Fexofenadine HCl [Symone] 30 mg PO DAILY 06/17/21 [History] Hx Tetanus, Diphtheria Vaccination/Date Given: Yes Hx Influenza Vaccination/Date Given: Yes Hx Pneumococcal Vaccination/Date Given: Yes Immunizations Up to Date: Yes Travel Risk - International Travel Have you traveled outside of the country in past 3 weeks: No - Coronavirus Screening Are you exhibiting any of the following symptoms?: No Close contact with a COVID-19 positive Pt in past 14-21 Days: No - Vaccine Status Have you recieved a Covid-19 vaccination: Yes 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 - Vaccination Dates Date of 2cond Vaccination (if applicable): 11/09/20 - Review of Systems Constitutional: No Symptoms Ears, Nose, & Throat: No Symptoms Respiratory: No Symptoms Cardiac: No Symptoms Abdominal/Gastrointestinal: No Symptoms Musculoskeletal: Injury, Joint Pain Skin: Skin Lesions Neurological: No Symptoms Endocrine: No Symptoms - Past Medical History Pertinent Past Medical History: Yes Neurological History: TIA ENT History: No Pertinent History Cardiac History: High Cholesterol, Hypertension Respiratory History: Bronchitis, COPD Endocrine Medical History: Diabetes Type II Musculoskeletal History: Arthritis, Osteoarthritis, Osteoporosis, Rheumatoid Arthritis GI Medical History: Colitis, Diverticulitis, Esophageal Disorder, GERD, Gallbladder Disease, GI Bleed, Hemorrhoids, Irritable Bowel, Polyps History: Other Psycho-Social History: Anxiety, Bipolar, Depression, Panic Disorder Female Reproductive Disorders: No Pertinent History Other Medical History: fatty liver - Past Surgical History Past Surgical History: Yes Neuro Surgical History: No Pertinent History Cardiac: Cardiac Catheterization Respiratory: No Pertinent History Gastrointestinal: Appendectomy, Cholecystectomy Genitourinary: No Pertinent History Musculoskeletal: Joint Replacement, Other Female Surgical History: Hysterectomy Other Surgical History: CERIVCAL FUSION AND 5TH,6TH VETEBRAES FUSED. TOTAL RIGHT KNEE, right shoulder rotator cuff and right arm disloation, repair bicep muscle and tendon of right shoulder - Social History Smoking Status: Former smoker Exposure to second hand smoke: Yes Alcohol Use: None Drug Use: none Patient Lives Alone: No Significant Family History: diabetes, hypertension - Nursing Vital Signs Nursing Vital Signs: Initial Vital Signs Blood Pressure 151/82 12/28/22 13:05 O2 Sat by Pulse Oximetry 97 12/28/22 13:05 Pain Scale Pain Intensity 10 - Physical Exam General Appearance: no apparent distress, alert Eyes, Ears, Nose, Throat Exam: normal ENT inspection Neck Exam: normal inspection, non-tender, supple, full range of motion Cardiovascular/Respiratory Exam: normal breath sounds, regular rate/rhythm, heart sounds normal, No chest non-tender (Mild tenderness on the medial end of clavicle with no crepitus.), No palpable fracture Abdominal Exam: non-tender, soft Shoulder Exam: normal inspection, limited ROM (Especially abduction above head. No bony tenderness. Abrasion on the anteromedial aspect of upper arm.), soft tissue tenderness Elbow/Forearm Exam: normal inspection, non-tender, no evidence of injury, normal ROM Neuro/Tendon Exam: normal sensation, normal motor functions, normal tendon functions Mental Status Exam: alert, oriented x 3, cooperative Skin Exam: normal color SpO2 Interpretation: normal SpO2: 97 O2 Delivery: Room Air Ordered Tests: Active Orders 24 hr Category Date Time Status CLAVICLE Stat Exams 12/28/22 13:26 Taken SHOULDER Stat Exams 12/28/22 13:26 Taken - Progress Progress: unchanged Progress Note: 12/28/22 14:13 72-year-old female presented in the ER with chief complaint of left shoulder and clavicle area pain after she tripped and fell on her entertainment center yesterday/last night. Did not hit her head, no loss of consciousness. She has abrasion on the inner aspect of upper arm. Pain is reproducible with movements and palpation. No numbness tingling or weakness of left upper extremity. No chest pain otherwise. No difficulty breathing. She is offered pain medication but does not want it, does have [place] at home. No bony tenderness. Did not appreciate any fracture dislocation of shoulder/clavicle reviewed by me, official report is pending. Does have abrasion of the skin and with abduction I believe it gets pulled and causes pain. Probably could have some element of ligamentous strain from over extension/abduction. Placed in a sling, recommend continue with pain medications and outpatient follow-up. Discussed signs symptoms of worsening needing return to ER which she seems understanding. Counseled pt/family regarding: diagnosis, need for follow-up, rad results Medical Desision Making - Diagnostic Testing Diagnostic test were ordered, analyzed, and reviewed by me: Yes Radiological Interpretation: Interpreted by me, Reviewed by me - Risk of complications The pt has a mod risk of morbidity or mortality based on: Need for prescription drug management - Departure Departure Disposition: Home Clinical Impression: Fall, Shoulder strain Condition: Stable Critical Care Time: No Referrals: ADIN MARSH [Primary Care Provider] - Follow up with PCP 1 day ORTHO - KODY LEWIS NP [NON-STAFF PHY W/O PRIVILEGES] - Follow up/PCP as directed (1-2 days for reevaluation) Instructions: Shoulder Sprain (DC) Additional Instructions: Continue with pain medication which you have at home. Avoid exertional activities with left upper extremity. Intermittent ice application. Follow-up with primary care and Ortho for reevaluation. Return to ER for any worsening shoulder pain or if having chest pain palpitations or shortness of breath.
[2022-12-28 14:39] VITALS: BP 115/70; PULSE 71; O2SAT 95
--- NOTE | 2022-12-28 18:55 | XRAY ---
Indication: Pain following fall. Comparison: None 3 view left shoulder demonstrates osteopenia, moderate acromioclavicular degenerative changes, tiny spurring greater tuberosity humerus with tiny heterotopic ossification, and mild/moderate degenerative changes of visualized spine. No other bony, articular, or soft tissue abnormalities.
--- NOTE | 2022-12-28 18:55 | XRAY ---
Indication: Pain following fall. Comparison: None 2 view left clavicle demonstrates osteopenia, moderate acromioclavicular degenerative changes, tiny spurring greater tuberosity humerus with tiny heterotopic ossification, and mild/moderate degenerative changes of visualized spine. No other bony, articular, or soft tissue abnormalities.
== END 2022-12-28 14:32 | disposition home or self-care (01) ==
LOC: ED 12:30
DX: S46.912A Strain of unspecified muscle, fascia and tendon at shoulder and upper arm level, left arm, initial encounter (principal); W01.190A Fall on same level from slipping, tripping and stumbling with subsequent striking against furniture, initial encounter; E78.5 Hyperlipidemia, unspecified; I10 Essential (primary) hypertension; E11.9 Type 2 diabetes mellitus without complications; Z79.899 Other long term (current) drug therapy
CPT/HCPCS: 73000; 73030; 99283

== ENCOUNTER 2023-01-05 13:54 | Observation (INO) | payer MEDICARE ==
[2023-01-05] MEDS ORDERED: Zofran 4 MG/2 ML VIAL IV ONE (15:08)
--- NOTE | 2023-01-05 15:10 | ERPHSYRPT ---
- History of Present Illness Time Seen by Provider: 01/05/23 15:05 Source: patient Exam Limitations: no limitations Patient Subjective Stated Complaint: Patient c/o left shoulder pain but then rates pain "0" on 0-10 scale when asked. EMS state that patient fell on 12/28/22. Patient's daughter reports confusion with patient that she noticed today. Triage Nursing Assessment: Patient arrived by ambulance. She is alert and awake; trevor. She was able to transfer self from ambulance cot to ER bed with assist of one and slow, unsteady gait. Patient is gaurding her LUE. Some faint bruising noted to left clavicle area. Patient alert to name, place, and time but confused to situation. Patient randomnly blurting out things like, "I don't want to do t hat" or "are you sure?" C/O urinary urgency during assessment and had to assisted to the bathroom. Physician History: Patient is 72-year-old female presents to our ED via EMS with her daughter. Daughter states patient has been confused today. Patient lives alone. Daughter states patient appears confused. Patient is aware of the year but not the month. Per nursing report patient is blurting out random statements. Patient is on Plavix currently. Patient fell approximately 1 week ago. Patient injured her clavicle. On physical exam there is resolving bruising to her left chest near clavicle. No reported BHT or LOC. Patient complaining of mild nausea. Patient currently complains of pain to her shoulder that has been present since her fall. However this has been worked up with x-ray at the time of her fall. No interval falls reported. Patient symptoms are moderate in intensity. No specific worsening improving factors. Daughter at bedside voices no other complaints at this time. Portions of this note were created with voice recognition technology. There may be grammatical, spelling, punctuation or sound alike errors Timing/Duration: today Severity: moderate Modifying Factors: Improves With: nothing Associated Symptoms: nausea Allergies/Adverse Reactions: Penicillins Allergy (Mild, Verified 01/05/23 13:58) itching and hives meperidine HCl [From Demerol] Allergy (Unknown, Verified 01/05/23 13:58) "MAKES CRAZY" Home Medications: Albuterol Sulfate [Ventolin Hfa] 2 puffs IH UD PRN 08/27/19 [History] Ascorbic Acid 500 mg [Vitamin C 500 MG] 500 mg PO DAILY 08/27/19 [History] Betamethasone Valerate 2 gm TP DAILY PRN 08/27/19 [History] Cholecalciferol (Vitamin D3) [Vitamin D3] 1,000 unit PO DAILY 08/27/19 [History] Cyanocobalamin (Vitamin B-12) [B-12] 1,000 mcg PO DAILY 08/27/19 [History] Cyclobenzaprine HCl 10 mg [Cyclobenzaprine 10 MG] 10 mg PO HS 08/27/19 [History] Furosemide 20 mg [Lasix 20 mg] 10 mg PO DAILY 08/27/19 [History] Hydroxychloroquine Sulfate 200 mg PO BID 08/27/19 [History] Levothyroxine Sodium 50 Mcg [Synthroid 50 Mcg] 50 mcg PO DAILY 08/27/19 [History] Magnesium Oxide 400 mg [Mag-Ox 400] 400 mg PO BID 08/27/19 [History] [place]-3 Fatty Acids/Fish Oil [Fish Oil 1,000 mg Capsule] 1,200 mg PO DAILY 08/27/19 [History] Potassium Chloride [Klor-Con] 40 meq PO BID 08/27/19 [History] Pregabalin [Lyrica 150Mg] 150 mg PO BID 08/27/19 [History] Simvastatin 40 mg PO HS 08/27/19 [History] Trazodone HCl 150 mg PO HS 08/27/19 [History] Venlafaxine HCl [Effexor Xr] 225 mg PO DAILY 08/27/19 [History] Omeprazole 40 mg PO DAILY 05/21/20 [History] Budesonide/Glycopyr/Formoterol [Breztri Aerosphere Inhaler] 10.7 gm IH BID [History] Hydrocodone/Acetaminophen [Hydrocodone-Acetamin 10-325 mg] 1 each PO Q8H PRN PRN 04/16/21 [History] Fexofenadine HCl [Symone] 30 mg PO DAILY 06/17/21 [History] Hx Tetanus, Diphtheria Vaccination/Date Given: Yes Hx Influenza Vaccination/Date Given: Yes Hx Pneumococcal Vaccination/Date Given: Yes Travel Risk - International Travel Have you traveled outside of the country in past 3 weeks: No - Coronavirus Screening Are you exhibiting any of the following symptoms?: No Close contact with a COVID-19 positive Pt in past 14-21 Days: No - Vaccine Status Have you recieved a Covid-19 vaccination: Yes 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[employer] - Vaccination Dates Date of 2cond Vaccination (if applicable): 11/09/20 - Review of Systems Constitutional: No Symptoms, No Fever, No Chills Eyes: No Symptoms Ears, Nose, & Throat: No Symptoms Respiratory: No Symptoms, No Cough, No Dyspnea Cardiac: No Symptoms, No Chest Pain, No Edema, No Syncope Abdominal/Gastrointestinal: No Symptoms, No Abdominal Pain, No Nausea, No Vomiting, No Diarrhea Genitourinary Symptoms: No Symptoms, No Dysuria Musculoskeletal: No Symptoms, No Back Pain, No Neck Pain Skin: No Symptoms, No Rash Neurological: No Symptoms, No Dizziness, No Focal Weakness, No Sensory Changes Psychological: No Symptoms Endocrine: No Symptoms Hematologic/Lymphatic: No Symptoms Immunological/Allergic: No Symptoms All Other Systems: Reviewed and Negative - Past Medical History Pertinent Past Medical History: Yes Neurological History: TIA ENT History: No Pertinent History Cardiac History: High Cholesterol, Hypertension Respiratory History: Bronchitis, COPD Endocrine Medical History: Diabetes Type II Musculoskeletal History: Arthritis, Osteoarthritis, Osteoporosis, Rheumatoid Arthritis GI Medical History: Colitis, Diverticulitis, Esophageal Disorder, GERD, Gallbladder Disease, GI Bleed, Hemorrhoids, Irritable Bowel, Polyps History: Other Psycho-Social History: Anxiety, Bipolar, Depression, Panic Disorder Female Reproductive Disorders: No Pertinent History Other Medical History: fatty liver - Past Surgical History Past Surgical History: Yes Neuro Surgical History: No Pertinent History Cardiac: Cardiac Catheterization Respiratory: No Pertinent History Gastrointestinal: Appendectomy, Cholecystectomy Genitourinary: No Pertinent History Musculoskeletal: Joint Replacement, Other Female Surgical History: Hysterectomy Other Surgical History: CERIVCAL FUSION AND 5TH,6TH VETEBRAES FUSED. TOTAL RIGHT KNEE, right shoulder rotator cuff and right arm disloation, repair bicep muscle and tendon of right shoulder - Social History Smoking Status: Former smoker Exposure to second hand smoke: Yes Alcohol Use: None Drug Use: none Patient Lives Alone: Yes Significant Family History: diabetes, hypertension - Nursing Vital Signs Nursing Vital Signs: Initial Vital Signs Temperature 97.4 F 01/05/23 13:58 Pulse Rate 83 06/06/23 13:58 Respiratory Rate 18 01/05/23 13:58 Blood Pressure 146/80 01/05/23 13:58 O2 Sat by Pulse Oximetry 100 01/05/23 13:58 Pain Scale Pain Intensity 0 - Physical Exam General Appearance: no apparent distress, alert Eye Exam: PERRL/EOMI, eyes nml inspection Ears, Nose, Throat Exam: normal ENT inspection, TMs normal, pharynx normal, moist mucous membranes Neck Exam: normal inspection, non-tender, supple, full range of motion Respiratory Exam: normal breath sounds, lungs clear, airway intact, No respiratory distress Cardiovascular Exam: regular rate/rhythm, normal heart sounds, normal peripheral pulses Gastrointestinal/Abdomen Exam: soft, normal bowel sounds, No tenderness, No mass Back Exam: normal inspection, normal range of motion, No CVA tenderness, No vertebral tenderness Extremity Exam: normal inspection, normal range of motion, pelvis stable Neurologic Exam: alert, oriented x 3, cooperative, normal mood/affect, nml cerebellar function, nml station & gait, sensation nml, No motor deficits Skin Exam: normal color, warm, dry, No rash Lymphatic Exam: No adenopathy SpO2 Interpretation: normal SpO2: 96 O2 Delivery: Room Air - Course Nursing assessment & vital signs reviewed: Yes EKG Interpreted by Me: RATE (78), NORMAL AXIS, prolonged QT interval, NORMAL QRS - CT Exams Abdomen/Pelvis CT Interpretation: Tele-radiologist Report (Diverticulosis, anterolisthesis of L4-L5, spine degenerative changes, atherosclerotic disease otherwise no acute findings.) Head CT Interpretation: Tele-radiologist Report (Chronic ischemic changes. No acute intracranial abnormalities) Ordered Tests: Active Orders 24 hr Category Date Time Status Logistics System Engineer STAT Care 01/05/23 14:54 Active EKG-ER Only STAT Care 01/05/23 14:53 Active IV Insertion STAT Care 01/05/23 14:53 Active Pulse Oximetry (ED) STAT Care 01/05/23 14:53 Active Telemetry q4h Care 01/05/23 17:02 Active ABDOMEN AND PELVIS W/0 CONTRAS [CT] Stat Exams 01/05/23 15:01 Completed HEAD WITHOUT CONTRAST [CT] Stat Exams 01/05/23 14:55 Completed CBC W DIFF Stat Lab 01/05/23 15:48 Completed CMP Stat Lab 01/05/23 15:48 Completed CULTURE,URINE Stat Lab 01/05/23 15:48 Received LIPASE Stat Lab 01/05/23 15:48 Completed MAGNESIUM Stat Lab 01/05/23 15:48 Completed NT PRO BNPII Stat Lab 01/05/23 15:48 Completed TROPONIN Q4H Lab 01/05/23 15:48 Completed TROPONIN Q4H Lab 01/05/23 19:00 Ordered TROPONIN Q4H Lab 01/05/23 23:00 Ordered UA W/RFX UR CULTURE Stat Lab 01/05/23 15:48 Completed Transfer Order Routine Transfer 01/05/23 Ordered Medication Summary Generic Name Dose Route Start Last Admin Trade Name Freq PRN Reason Stop Dose Admin Sodium Chloride 1,000 mls @ 75 mls/hr 01/05/23 15:00 01/05/23 17:28 Sodium Chloride 0.9% 1000 Ml IV 02/04/23 14:59 75 mls/hr .[id number] RAMSEY Administration Potassium Chloride 20 meq in 100 mls @ 50 mls/hr 01/05/23 17:15 01/05/23 17:28 Potassium Chloride 20 Meq In Water 100ml IV 01/05/23 21:14 50 mls/hr Q2H RAMSEY Administration Magnesium Sulfate/Dextrose 100 mls @ 100 mls/hr 01/05/23 17:15 Magnesium 1 Gm / 100 Ml D5w IV 01/05/23 19:14 Q1H RAMSEY Discontinued Medications Generic Name Dose Route Start Last Admin Trade Name Freq PRN Reason Stop Dose Admin Ondansetron HCl 4 mg 01/05/23 15:08 01/05/23 15:55 Ondansetron Hcl 4 Mg/2 Ml Vial IV 01/05/23 15:09 Not Given STAT ONE Potassium Chloride 40 meq 01/05/23 17:03 01/05/23 17:29 Potassium Chloride Tab 10 Meq Tab PO 01/05/23 17:04 40 meq STAT ONE Administration Potassium Chloride Confirm 01/05/23 17:27 Potassium Chloride Tab 10 Meq Tab Administered 01/05/23 17:28 Dose 40 meq PO .STK-MED ONE Lab/Rad Data: Laboratory Result Diagrams 01/05/23 15:48 01/05/23 15:48 Laboratory Results 01/05/23 01/05/23 01/05/23 Range/Units 15:48 15:48 15:48 WBC 9.2 (4.0-10.5) x10^3/uL RBC 3.45 L (4.1-5.4) x10^6/uL Hgb 10.4 L (12.0-16.0) g/dL Hct 32.0 L (35-47) % MCV 92.8 (78-100) fL MCH 30.1 (26-32) pg MCHC 32.5 (32-36) g/dL RDW 15.2 H (11.5-14.0) % Plt Count 331 (150-450) x10^3/uL MPV 9.9 (7.5-11.0) fL Gran % 81.3 H (36.0-66.0) % Immature Gran % (Auto) 0.3 (0.00-0.4) % Nucleat RBC Rel Count 0.0 (0.00-0.1) % Eos # (Auto) 0 (0-0.5) x10^3/uL Immature Gran # (Auto) 0.03 (0.00-0.03) x10^3u/L Absolute Lymphs (auto) 0.98 L (1.0-4.6) x10^3/uL Absolute Monos (auto) 0.65 (0.0-1.3) x10^3/uL Absolute Nucleated RBC 0.00 (0.00-0.01) x10^3u/L Lymphocytes % 10.6 L (24.0-44.0) % Monocytes % 7.0 (0.0-12.0) % Eosinophils % 0.0 (0.00-5.0) % Basophils % 0.8 (0.0-0.4) % Absolute Granulocytes 7.49 H (1.4-6.9) x10^3/uL Basophils # 0.07 (0-0.4) x10^3/uL Sodium 138 (137-145) mmol/L Potassium 3.0 L* (3.5-5.1) mmol/L Chloride 95 L (98-107) mmol/L Carbon Dioxide 30 (22-30) mmol/L Anion Gap 15.3 H (5-15) MEQ/L BUN 11 (7-17) mg/dL Creatinine 0.63 (0.52-1.04) mg/dL Estimated GFR > 60.0 ML/MIN Glucose 160 H (74-106) mg/dL Calcium 9.3 (8.4-10.2) mg/dL Magnesium 1.9 (1.6-2.3) mg/dL Total Bilirubin 0.60 (0.2-1.3) mg/dL AST 39 H (14-36) U/L ALT 28 (0-35) U/L Alkaline Phosphatase 98 (38-126) U/L Troponin I < 0.012 (0.000-0.034) ng/mL NT-Pro-B Natriuret Pep 437 (<300) pg/mL Serum Total Protein 7.9 (6.3-8.2) g/dL Albumin 4.2 (3.5-5.0) g/dL Lipase 15 L (23-300) U/L Urine Color (Yellow) Urine Appearance (Clear) Urine pH (4.6-8.0) Ur Specific [place] (1.005-1.030) Urine Protein (Negative) Urine Glucose (UA) (Negative) mg/dL Urine Ketones (Negative) Urine Blood (Negative) Urine Nitrite (Negative) Urine Bilirubin (Negative) Urine Urobilinogen (0.2) mg/dL Ur Leukocyte Esterase (Negative) U Hyaline Cast (Auto) (0-2) /LPF Urine Microscopic RBC (0-5) /HPF Urine Microscopic WBC (0-5) /HPF Ur Epithelial Cells (None Seen) /HPF Urine Bacteria (None Seen) /HPF Urine Culture Reflexed (NO) 01/05/23 Range/Units 15:48 WBC (4.0-10.5) x10^3/uL RBC (4.1-5.4) x10^6/uL Hgb (12.0-16.0) g/dL Hct (35-47) % MCV (78-100) fL MCH (26-32) pg MCHC (32-36) g/dL RDW (11.5-14.0) % Plt Count (150-450) x10^3/uL MPV (7.5-11.0) fL Gran % (36.0-66.0) % Immature Gran % (Auto) (0.00-0.4) % Nucleat RBC Rel Count (0.00-0.1) % Eos # (Auto) (0-0.5) x10^3/uL Immature Gran # (Auto) (0.00-0.03) x10^3u/L Absolute Lymphs (auto) (1.0-4.6) x10^3/uL Absolute Monos (auto) (0.0-1.3) x10^3/uL Absolute Nucleated RBC (0.00-0.01) x10^3u/L Lymphocytes % (24.0-44.0) % Monocytes % (0.0-12.0) % Eosinophils % (0.00-5.0) % Basophils % (0.0-0.4) % Absolute Granulocytes (1.4-6.9) x10^3/uL Basophils # (0-0.4) x10^3/uL Sodium (137-145) mmol/L Potassium (3.5-5.1) mmol/L Chloride (98-107) mmol/L Carbon Dioxide (22-30) mmol/L Anion Gap (5-15) MEQ/L BUN (7-17) mg/dL Creatinine (0.52-1.04) mg/dL Estimated GFR ML/MIN Glucose (74-106) mg/dL Calcium (8.4-10.2) mg/dL Magnesium (1.6-2.3) mg/dL Total Bilirubin (0.2-1.3) mg/dL AST (14-36) U/L ALT (0-35) U/L Alkaline Phosphatase (38-126) U/L Troponin I (0.000-0.034) ng/mL NT-Pro-B Natriuret Pep (<300) pg/mL Serum Total Protein (6.3-8.2) g/dL Albumin (3.5-5.0) g/dL Lipase (23-300) U/L Urine Color Yellow (Yellow) Urine Appearance Cloudy A (Clear) Urine pH 8.5 A (4.6-8.0) Ur Specific [place] 1.015 (1.005-1.030) Urine Protein 30 (Negative) Urine Glucose (UA) Negative (Negative) mg/dL Urine Ketones 40 A (Negative) Urine Blood NHT (Negative) Urine Nitrite Negative (Negative) Urine Bilirubin Negative (Negative) Urine Urobilinogen 1.0 A (0.2) mg/dL Ur Leukocyte Esterase Negative (Negative) U Hyaline Cast (Auto) NONE SEEN (0-2) /LPF Urine Microscopic RBC 6-10 A (0-5) /HPF Urine Microscopic WBC 0-2 (0-5) /HPF Ur Epithelial Cells None Seen (None Seen) /HPF Urine Bacteria None Seen (None Seen) /HPF Urine Culture Reflexed YES (NO) - Progress Progress: improved Progress Note: 01/05/23 17:[address] Castañeda at 5:25 PM who accepts admission to observation. Patient is 72-year-old female presents to our ED for evaluation of confusion. Physical exam showed some degree of confusion no focal or lateralizing symptoms. Patient also complained of mild diffuse abdominal pain and nausea. Zofran administered. ET scan ordered. No dizziness. Evaluation reveals hypokalemia. Potassium replaced and administered. Microscopic hematuria no UTI observed. Patient lives alone. The cause of patient's confusion is unclear at this time. We will admit for further evaluation and treatment. Testing ordered include CT head which shows no acute intracranial process. CT abdomen pelvis essentially nonremarkable for acute pathology. CBC no significant finding. CMP reveals a hypokalemia. Lipase negative. Urinalysis shows microscopic hematuria. UA reflex to culture. Magnesium within normal l imits. BNP within normal limits. Troponin negative. 01/05/23 17:35 Complexity of problem addressed is moderate new diagnosis with uncertain prognosis. Complexity of data reviewed and analyzed is extensive. Test ordered. Test reviewed and analyzed. Patient's daughter served as a primary historian. Management discussed with hospitalist who excepts admission to observation. Plan of care discussed with patient and family. They agree to admission to [facility] for further evaluation and treatment. Risk of complication and or risk morbidity/mortality of patient management is high. Patient will require hospitalization for further evaluation and treatme nt. Portions of this note were created with voice recognition technology. There may be grammatical, spelling, punctuation or sound alike errors 01/05/23 17:37 Discussed with : Other Will see patient in: hospital (observation) Counseled pt/family regarding: lab results, diagnosis, rad results - Departure Departure Disposition: Observation Clinical Impression: Hypokalemia, Confusion, Normocytic anemia, Microscopic hematuria Condition: Stable Critical Care Time: No Referrals: ADIN MARSH [Primary Care Provider] - Follow up/PCP as directed
[2023-01-05 15:51] LABS: Absolute Neutrophil Ct (ANC) 7.49 x10^3/uL (1.4-6.9); BASOPHIL % 0.8 % (0.0-0.4); Basophil (Absolute #) 0.07 x10^3/uL (0-0.4); Eosinophil (Absolute #) 0 x10^3/uL (0-0.5); Hemoglobin 10.4 g/dL (12.0-16.0); IMMATURE GRAN # 0.03 x10^3u/L (0.00-0.03); IMMATURE GRAN % 0.3 % (0.00-0.4); Lymphocyte (Absolute #) 0.98 x10^3/uL (1.0-4.6); Lymphocytes % 10.6 % (24.0-44.0); Mean Cell Volume 92.8 fL (78-100); Mean Corpuscular Hemoglobin 30.1 pg (26-32); Mean Corpuscular Hgb Concent. 32.5 g/dL (32-36); Mean Platelet Volume 9.9 fL (7.5-11.0); Monocyte (Absolute #) 0.65 x10^3/uL (0.0-1.3); Neutrophil % 81.3 % (36.0-66.0); Platelet Count 331 x10^3/uL (150-450); Red Blood Count 3.45 x10^6/uL (4.1-5.4); Red Cell Distribution Width 15.2 % (11.5-14.0); White Blood Count 9.2 x10^3/uL (4.0-10.5)
[2023-01-05] MEDS: Sodium Chloride 0.9% 1000 ML 1,000 ML IV SCH ×2 (15:56→17:28)
[2023-01-05 15:57] LABS: Appearance Cloudy (Clear); Bacteria None Seen /HPF (None Seen); Bilirubin Negative (Negative); Blood NHT (Negative); Epithelial Cells None Seen /HPF (None Seen); Glucose, Urine Negative (Negative); Hyaline Casts NONE SEEN /LPF (0-2); Ketones 40 (Negative); Leukocyte Esterase Negative (Negative); Nitrite Negative (Negative); Ph 8.5 (4.6-8.0); Protein,Urine Dip 30 (Negative); Specific Gravity 1.015 (1.005-1.030); WBC 0-2 /HPF (0-5)
--- NOTE | 2023-01-05 15:57 | XRAY ---
CLINICAL HISTORY:Confusion COMPARISON:None; TECHNIQUES:Axial non-contrast CT scan of the brain was performed from the skull base to the high parietal region. CTDI: 53.92 mGy, DLP: 1002.79 mGy*cm; FINDINGS: Bilateral minimal periventricular chronic ischemic gliosis suggesting microvascular disease is noted. No evidence of hemorrhage, mass or edema. There are no supra or infratentorial masses. No intra or extra-axial hematomas. No shift of midline structures. The basal ganglia, thalami, brainstem are normal in appearance. The ventricular system and basal cisterns are within normal limits. The paranasal sinuses are clear. The orbits are unremarkable. No calvaria acute bony abnormality. IMPRESSION: 1. No acute intracranial abnormality. 2. Minimal chronic ischemic gliosis. Electronically Signed by: Celestina Dye MD. (01/05/2023 14:53:53 CABIN AGENT)
[2023-01-05 15:59] LABS: ADD URINE CULTURE? YES (NO)
[2023-01-05 16:12] LABS: ALBUMIN 4.2 g/dL (3.5-5.0); ALKALINE PHOSPHATASE 98 U/L (38-126); ANION GAP 15.3 MEQ/L (5-15); BLOOD UREA NITROGEN 11 mg/dL (7-17); CHLORIDE 95 mmol/L (98-107); Calcium 9.3 mg/dL (8.4-10.2); Carbon Dioxide 30 mmol/L (22-30); Creatinine 1 0.63 mg/dL (0.52-1.04); EST GLOMERULAR FILTRATION RATE > 60.0 ML/MIN; Glucose 160 mg/dL (74-106); LIPASE 15 U/L (23-300); MAGNESIUM 1.9 mg/dL (1.6-2.3); NT PRO BNPII 437 pg/mL (<300); SGOT/AST 39 U/L (14-36); SGPT/ALT 28 U/L (0-35); SODIUM 138 mmol/L (137-145); Total Protein 7.9 g/dL (6.3-8.2)
--- NOTE | 2023-01-05 16:35 | XRAY ---
CLINICAL HISTORY:Pain; COMPARISON:None; TECHNIQUES:CT scan of the abdomen and pelvis was performed without IV contrast. Coronal and sagittal reconstructive images were also obtained; FINDINGS: Scan through the lower chest reveals unremarkable lung bases and heart. Abdomen. The liver is of average size and measures 15 cm. No focal or diffuse parenchymal abnormality. The portal vein, intrahepatic biliary radicals, and the bile ducts are normal. The gallbladder was surgically removed. Normal size and CT density of the spleen with no splenic focal lesions. There is fatty replacement of the pancreas, mainly affecting the head and neck regions. The adrenal glands are unremarkable. The kidneys are normal in size and shape. No calculi were seen. Bilateral pelvic fullness vs. extrarenal pelvis. The stomach and the visualized small bowel loops are unremarkable. There is no evidence of significant mesenteric or retroperitoneal lymph node enlargement. No free fluid. Pelvis. The urinary bladder is unremarkable. Colonic diverticulosis without CT evidence of acute diverticulitis. No evidence of bowel obstruction. Reproductive organs are unremarkable. Atherosclerotic calcification of the aorta and major abdominal arteries is seen. No evidence of pelvic lymphadenopathy. Degenerative changes in the visualized spine, with marginal osteophytes. Grade I anterolisthesis of L4 over L5. Bilateral facet joint arthropathies. IMPRESSION: 1. Bilateral renal pelvic fullness vs. extrarenal pelvis. 2. Unremarkable CT examination for the rest of the abdomen and pelvis. Electronically Signed by: Celestina Dye MD. (01/05/2023 15:11:29 EMERGENCY ROOM PHYSICIAN ASSISTANT)
[2023-01-05] MEDS ORDERED: Klor Con PO ONE ×2 (17:03→17:27)
[2023-01-05] MEDS: POTASSIUM CHLORIDE 20 mEq IN WATER 100ML 20 MEQ/100 ML BAG IV SCH ×2 (17:28→20:51)
[2023-01-05] MEDS ORDERED: Senokot-S Tablet PO PRN (18:33)
[2023-01-05] MEDS ORDERED: MILK OF MAGNESIA 30 ML PO PRN (18:33)
[2023-01-05] MEDS ORDERED: MAALOX ES 30 ML UNIT DOSE PO PRN (18:33)
--- NOTE | 2023-01-05 19:30 | PCM.HP ---
History of Present Illness - Chief Complaint Chief Complaint: hypokalemia, confusion, normocytic anemia Date: 01/05/23 History of Present Illness: is a 72 year old female who was brought into the hospital due to dizziness, a recent fall (on 12/28/22 with left shoulder pain as a result), and confusion. She was observed on presentation to have slow, unsteady gait with some tangential comments reported. The patient does not report any visual disurbance, focal weakness/numbness, or incontinence. Per the daughter's assessment in the ED, the patient was demonstrating altered mental status. She reported nausea in the ED, but only reports constipation to me. No chest pain, cough, fevers, chills, vomiting, or diarrhea. A the time of my evaluation, the patient is oriented x 3 (knows year but not month or date) and the daughter is not present for the assessment. The entirety of this encounter was performed via telemedicine. The patient consented to this telemedicine encounter. - Review of Systems Constitutional: No Symptoms Eyes: No Symptoms Ears, Nose, & Throat: No Symptoms Respiratory: No Symptoms Cardiac: No Symptoms Abdominal/Gastrointestinal: Nausea, Constipation Genitourinary Symptoms: No Symptoms Musculoskeletal: No Symptoms Skin: No Symptoms Neurological: Dizziness Psychological: No Symptoms Endocrine: No Symptoms Hematologic/Lymphatic: No Symptoms Immunological/Allergic: No Symptoms All Other Systems: Reviewed and Negative Medications & Allergies Home Medications: Home Medication List Albuterol Sulfate [Ventolin Hfa] 2 puffs IH UD PRN 08/27/19 [History Confirmed 06/19/21] Ascorbic Acid 500 mg [Vitamin C 500 MG] 500 mg PO DAILY 08/27/19 [History Confirmed 06/19/21] Betamethasone Valerate 2 gm TP DAILY PRN 08/27/19 [History Confirmed 06/19/21] Cholecalciferol (Vitamin D3) [Vitamin D3] 1,000 unit PO DAILY 08/27/19 [History Confirmed 06/19/21] Cyanocobalamin (Vitamin B-12) [B-12] 1,000 mcg PO DAILY 08/27/19 [History Confirmed 06/19/21] Cyclobenzaprine HCl 10 mg [Cyclobenzaprine 10 MG] 10 mg PO HS 08/27/19 [History Confirmed 06/19/21] Furosemide 20 mg [Lasix 20 mg] 10 mg PO DAILY 08/27/19 [History Confirmed 06/19/21] Hydroxychloroquine Sulfate 200 mg PO BID 08/27/19 [History Confirmed 06/19/21] Levothyroxine Sodium 50 Mcg [Synthroid 50 Mcg] 50 mcg PO DAILY 08/27/19 [History Confirmed 06/19/21] Magnesium Oxide 400 mg [Mag-Ox 400] 400 mg PO BID 08/27/19 [History Confirmed 06/19/21] [place]-3 Fatty Acids/Fish Oil [Fish Oil 1,000 mg Capsule] 1,200 mg PO DAILY 08/27/19 [History Confirmed 06/19/21] Potassium Chloride [Klor-Con] 40 meq PO BID 08/27/19 [History Confirmed 06/19/21] Pregabalin [Lyrica 150Mg] 150 mg PO BID 08/27/19 [History Confirmed 06/19/21] Simvastatin 40 mg PO HS 08/27/19 [History Confirmed 06/19/21] Trazodone HCl 150 mg PO HS 08/27/19 [History Confirmed 06/19/21] Venlafaxine HCl [Effexor Xr] 225 mg PO DAILY 08/27/19 [History Confirmed 06/19/21] Omeprazole 40 mg PO DAILY 05/21/20 [History Confirmed 06/19/21] Budesonide/Glycopyr/Formoterol [Breztri Aerosphere Inhaler] 10.7 gm IH BID 04/16/21 [History Confirmed 06/19/21] Hydrocodone/Acetaminophen [Hydrocodone-Acetamin 10-325 mg] 1 each PO Q8H PRN PRN 04/16/21 [History Confirmed 06/19/21] Fexofenadine HCl [Symone] 30 mg PO DAILY 06/17/21 [History Confirmed 06/19/21] Clopidogrel Bisulfate [PLAVIX Tablet] 75 mg PO DAILY #0 06/19/21 [Rx Confirmed 06/19/21] Allergies/Adverse Reactions: Allergies Allergy/AdvReac Type Severity Reaction Status Date / Time Penicillins Allergy Mild itching Verified 01/05/23 13:58 and hives meperidine HCl [From Demerol] Allergy Unknown Verified 01/05/23 13:58 - Past Medical History Past Medical History: Yes Neurological History: TIA ENT History: No Pertinent History Cardiac History: High Cholesterol, Hypertension Respiratory History: Bronchitis, COPD Endocrine Medical History: Diabetes Type II Musculoskelatal History: Arthritis, Osteoarthritis, Osteoporosis, Rheumatoid Arthritis GI Medical History: Colitis, Diverticulitis, Esophageal Disorder, GERD, Gallbladder Disease, GI Bleed, Hemorrhoids, Irritable Bowel, Polyps History: Other Pyscho-Social History: Anxiety, Bipolar, Depression, Panic Disorder Reproductive Disorders: No Pertinent History Comment: fatty liver - Female History Are you now?: No - Past Surgical History Past Surgical History: Yes Neuro Surgical History: No Pertinent History Cardiac History: Cardiac Catheterization Respiratory Surgery: No Pertinent History GI Surgical History: Appendectomy, Cholecystectomy Genitourinary Surgical Hx: No Pertinent History Musculskeletal Surgical Hx: Joint Replacement, Other Female Surgical History: Hysterectomy Other Surgical History: CERIVCAL FUSION AND 5TH,6TH VETEBRAES FUSED. TOTAL RIGHT KNEE, right shoulder rotator cuff and right arm disloation, repair bicep muscle and tendon of right shoulder - Social History Smoking Status: Former smoker Exposure to second hand smoke: No Alcohol: None Drug Use: none Significant Family History: diabetes, hypertension - Physical Exam Vital Signs: Vital Signs - 24 hr Temp Pulse Resp BP BP Pulse Ox 01/05/23 18:36 97.3 F 81 19 148/97 95 01/05/23 18:25 82 19 01/05/23 18:10 83 16 01/05/23 18:03 81 17 01/05/23 17:40 96 01/05/23 17:30 84 16 146/73 96 01/05/23 17:05 82 13 143/88 01/05/23 15:00 82 17 139/73 93 L 01/05/23 14:53 98 01/05/23 14:13 80 17 142/95 96 01/05/23 14:00 154/85 01/05/23 13:58 97.4 F 83 18 146/80 100 General Appearance: no apparent distress Neurologic Exam: alert, oriented x 3 (knows year but not month or date), cooperative, machine cell tuber II-XII nml as tested, normal mood/affect, nml cerebellar function Eye Exam: PERRL/EOMI, eyes nml inspection Ears, Nose, Throat Exam: normal ENT inspection Neck Exam: normal inspection, non-tender, supple, full range of motion Respiratory Exam: normal breath sounds, lungs clear Cardiovascular Exam: regular rate/rhythm, normal heart sounds Gastrointestinal/Abdomen Exam: soft, normal bowel sounds Rectal Exam: deferred Extremity Exam: normal inspection, normal range of motion Skin Exam: normal color, ecchymosis (over clavicle (resolving)) Results - Labs Lab/Micro Results: Lab Results-Last 24 Hours 01/05/23 01/05/23 01/05/23 Range/Units 15:48 15:48 15:48 WBC 9.2 (4.0-10.5) x10^3/uL RBC 3.45 L (4.1-5.4) x10^6/uL Hgb 10.4 L (12.0-16.0) g/dL Hct 32.0 L (35-47) % MCV 92.8 (78-100) fL MCH 30.1 (26-32) pg MCHC 32.5 (32-36) g/dL RDW 15.2 H (11.5-14.0) % Plt Count 331 (150-450) x10^3/uL MPV 9.9 (7.5-11.0) fL Gran % 81.3 H (36.0-66.0) % Immature Gran % (Auto) 0.3 (0.00-0.4) % Nucleat RBC Rel Count 0.0 (0.00-0.1) % Eos # (Auto) 0 (0-0.5) x10^3/uL Immature Gran # (Auto) 0.03 (0.00-0.03) x10^3u/L Absolute Lymphs (auto) 0.98 L (1.0-4.6) x10^3/uL Absolute Monos (auto) 0.65 (0.0-1.3) x10^3/uL Absolute Nucleated RBC 0.00 (0.00-0.01) x10^3u/L Lymphocytes % 10.6 L (24.0-44.0) % Monocytes % 7.0 (0.0-12.0) % Eosinophils % 0.0 (0.00-5.0) % Basophils % 0.8 (0.0-0.4) % Absolute Granulocytes 7.49 H (1.4-6.9) x10^3/uL Basophils # 0.07 (0-0.4) x10^3/uL Sodium 138 (137-145) mmol/L Potassium 3.0 L* (3.5-5.1) mmol/L Chloride 95 L (98-107) mmol/L Carbon Dioxide 30 (22-30) mmol/L Anion Gap 15.3 H (5-15) MEQ/L BUN 11 (7-17) mg/dL Creatinine 0.63 (0.52-1.04) mg/dL Estimated GFR > 60.0 ML/MIN Glucose 160 H (74-106) mg/dL Calcium 9.3 (8.4-10.2) mg/dL Magnesium 1.9 (1.6-2.3) mg/dL Total Bilirubin 0.60 (0.2-1.3) mg/dL AST 39 H (14-36) U/L ALT 28 (0-35) U/L Alkaline Phosphatase 98 (38-126) U/L Troponin I (0.000-0.034) ng/mL NT-Pro-B Natriuret Pep 437 (<300) pg/mL Serum Total Protein 7.9 (6.3-8.2) g/dL Albumin 4.2 (3.5-5.0) g/dL Lipase 15 L (23-300) U/L Urine Color Yellow (Yellow) Urine Appearance Cloudy A (Clear) Urine pH 8.5 A (4.6-8.0) Ur Specific [place] 1.015 (1.005-1.030) Urine Protein 30 (Negative) Urine Glucose (UA) Negative (Negative) mg/dL Urine Ketones 40 A (Negative) Urine Blood NHT (Negative) Urine Nitrite Negative (Negative) Urine Bilirubin Negative (Negative) Urine Urobilinogen 1.0 A (0.2) mg/dL Ur Leukocyte Esterase Negative (Negative) U Hyaline Cast (Auto) NONE SEEN (0-2) /LPF Urine Microscopic RBC 6-10 A (0-5) /HPF Urine Microscopic WBC 0-2 (0-5) /HPF Ur Epithelial Cells None Seen (None Seen) /HPF Urine Bacteria None Seen (None Seen) /HPF Urine Culture Reflexed YES (NO) 01/05/23 Range/Units 15:48 WBC (4.0-10.5) x10^3/uL RBC (4.1-5.4) x10^6/uL Hgb (12.0-16.0) g/dL Hct (35-47) % MCV (78-100) fL MCH (26-32) pg MCHC (32-36) g/dL RDW (11.5-14.0) % Plt Count (150-450) x10^3/uL MPV (7.5-11.0) fL Gran % (36.0-66.0) % Immature Gran % (Auto) (0.00-0.4) % Nucleat RBC Rel Count (0.00-0.1) % Eos # (Auto) (0-0.5) x10^3/uL Immature Gran # (Auto) (0.00-0.03) x10^3u/L Absolute Lymphs (auto) (1.0-4.6) x10^3/uL Absolute Monos (auto) (0.0-1.3) x10^3/uL Absolute Nucleated RBC (0.00-0.01) x10^3u/L Lymphocytes % (24.0-44.0) % Monocytes % (0.0-12.0) % Eosinophils % (0.00-5.0) % Basophils % (0.0-0.4) % Absolute Granulocytes (1.4-6.9) x10^3/uL Basophils # (0-0.4) x10^3/uL Sodium (137-145) mmol/L Potassium (3.5-5.1) mmol/L Chloride (98-107) mmol/L Carbon Dioxide (22-30) mmol/L Anion Gap (5-15) MEQ/L BUN (7-17) mg/dL Creatinine (0.52-1.04) mg/dL Estimated GFR ML/MIN Glucose (74-106) mg/dL Calcium (8.4-10.2) mg/dL Magnesium (1.6-2.3) mg/dL Total Bilirubin (0.2-1.3) mg/dL AST (14-36) U/L ALT (0-35) U/L Alkaline Phosphatase (38-126) U/L Troponin I < 0.012 (0.000-0.034) ng/mL NT-Pro-B Natriuret Pep (<300) pg/mL Serum Total Protein (6.3-8.2) g/dL Albumin (3.5-5.0) g/dL Lipase (23-300) U/L Urine Color (Yellow) Urine Appearance (Clear) Urine pH (4.6-8.0) Ur Specific [place] (1.005-1.030) Urine Protein (Negative) Urine Glucose (UA) (Negative) mg/dL Urine Ketones (Negative) Urine Blood (Negative) Urine Nitrite (Negative) Urine Bilirubin (Negative) Urine Urobilinogen (0.2) mg/dL Ur Leukocyte Esterase (Negative) U Hyaline Cast (Auto) (0-2) /LPF Urine Microscopic RBC (0-5) /HPF Urine Microscopic WBC (0-5) /HPF Ur Epithelial Cells (None Seen) /HPF Urine Bacteria (None Seen) /HPF Urine Culture Reflexed (NO) - Radiology Impressions Radiology Exams & Impressions: Radiology Procedures Category Date Time Status ABDOMEN AND PELVIS W/0 CONTRAS [CT] Stat Exams 01/05/23 15:01 Completed HEAD WITHOUT CONTRAST [CT] Stat Exams 01/05/23 14:55 Completed MRI BRAIN W & W/O CONTRAST [MRI] Routine Exams 01/05/23 19:23 Ordered - Other Procedures and Tests Respiratory Therapy 01/05/23 18:33 EKG Q8HX2,QAMX3,PRN Assessment/Plan (1) Altered mental status Current Visit: Yes Status: Acute Assessment & Plan: CT head negative. No focal neuro deficits. Unsteadiness noted. PT/OT. Monitor clinically. MRI brain tomorrow. Will check ammonia level. Could consider teleneurology consult in AM. Due to unsteadiness, daughter has expressed concerns about the patient's living situation (lives alone). Code(s): R41.82 - ALTERED MENTAL STATUS, UNSPECIFIED (2) Dizziness Current Visit: Yes Status: Acute Assessment & Plan: PT/OT. Check AM orthostatics. Meclizine prn. Code(s): R42 - DIZZINESS AND GIDDINESS (3) Hypokalemia Current Visit: Yes Status: Acute Assessment & Plan: Replete electrolytes and monitor. Code(s): E87.6 - HYPOKALEMIA Telemedicine Encounter - Telemedicine Encounter Telemedicine Encounter: The entirety of this encounter was performed via Telemedicine"
[2023-01-05] MEDS ORDERED: ANTIVERT 25 MG PO PRN (19:40)
[2023-01-05] MEDS: Klor Con PO SCH ×2 (20:50→21:45)
[2023-01-05] MEDS: TYLENOL 325 MG PO PRN (21:50)
[2023-01-05] MEDS: Magnesium 1 Gm / 100 Ml D5W*** 100 ML IV SCH ×2 (22:49→22:51)
[2023-01-06] MEDS: Klor Con PO SCH ×4 (00:41→22:15)
[2023-01-06] MEDS: Magnesium 1 Gm / 100 Ml D5W*** 100 ML IV SCH (00:42)
[2023-01-06] MEDS ORDERED: Sodium Chloride 0.9% 1000 ML 1,000 ML ONE (03:11)
[2023-01-06] MEDS: Sodium Chloride 0.9% 1000 ML 1,000 ML IV SCH (03:12)
[2023-01-06] MEDS: TYLENOL 325 MG PO PRN (04:53)
[2023-01-06 05:58] LABS: ANION GAP 16.7 MEQ/L (5-15); BLOOD UREA NITROGEN 10 mg/dL (7-17); CHLORIDE 101 mmol/L (98-107); Calcium 8.9 mg/dL (8.4-10.2); Carbon Dioxide 24 mmol/L (22-30); Cholesterol 199 mg/dL (50-200); Creatinine 1 0.51 mg/dL (0.52-1.04); EST GLOMERULAR FILTRATION RATE > 60.0 ML/MIN; Glucose 128 mg/dL (74-106); HDL CHOLESTEROL 100 mg/dL (40-60); LDL, DIRECT 79 mg/dL (30-100); MAGNESIUM 2.5 mg/dL (1.6-2.3); Potassium 4.5 mmol/L (3.5-5.1); SODIUM 137 mmol/L (137-145); TRIGLYCERIDE 91 mg/dL (30-150)
[2023-01-06] MEDS: Miralax Powder 17GM PACKET PO SCH (09:53)
[2023-01-06] MEDS ORDERED: LOTRIMIN CREAM 30 GM TP PRN (11:18)
[2023-01-06] MEDS ORDERED: LIORESAL 10 MG PO PRN (11:18)
[2023-01-06] MEDS ORDERED: MEDICATION INTERVENTION MC SCH (11:45)
[2023-01-06] MEDS: VITAMIN D PO SCH (12:12)
[2023-01-06] MEDS: ROCEPHIN 1 Gm-D5w 50 ml Bag** 1 G/50 ML IVPB IV SCH (12:12)
[2023-01-06] MEDS: VENTOLIN COMMON CANISTER IH SCH ×2 (12:12→19:37)
[2023-01-06] MEDS: ZOLOFT 50 MG TABLET PO SCH (12:13)
[2023-01-06] MEDS: HYDROCODONE-ACETAMIN 10-325 MG PO PRN ×2 (12:13→18:15)
[2023-01-06] MEDS: LASIX 20 MG PO SCH (12:14)
[2023-01-06] MEDS: Vitamin B-12 500 MCG PO SCH (12:14)
[2023-01-06] MEDS: SYNTHROID 50 MCG PO SCH (12:14)
[2023-01-06] MEDS: LYRICA 150MG PO SCH ×2 (12:14→22:15)
[2023-01-06] MEDS: MYRBETRIQ PO SCH (12:14)
[2023-01-06] MEDS: FEOSOL 325 MG PO SCH (12:14)
[2023-01-06] MEDS: Abilify 10 MG PO SCH (12:15)
[2023-01-06] MEDS: Singulair 10 MG PO SCH (12:15)
[2023-01-06] MEDS: Vitamin C 500 MG PO SCH (12:15)
[2023-01-06] MEDS: MAG-OX 400 PO SCH ×2 (12:15→22:14)
[2023-01-06] MEDS: FISH OIL 1,000 MG CAPSULE PO SCH (12:15)
[2023-01-06] MEDS: Pepcid 20 MG PO SCH (12:15)
[2023-01-06] MEDS: PLAVIX Tablet PO SCH (12:15)
[2023-01-06] MEDS: NON-FORMULARY ITEM PO SCH ×2 (12:16→22:15)
--- NOTE | 2023-01-06 15:45 | XRAY ---
CLINICAL HISTORY:Dizziness. To rule out stroke. COMPARISON:CT done on 01/05/2023. TECHNIQUES:Multiplanar, multi-echo MRI sequences were taken through the brain without and with intravenous contrast administration. FINDINGS: No evidence of recent infarction on diffusion-weighted images. Age-matched central and cortical involutional brain changes as evident by prominent cortical sulci, widened basal cisterns and mild ventricular dilatation. Deep white matter ischemia as evident by periventricular abnormal T2/FLAIR bright signal. Few deep white matter tiny foci of chronic ischemic changes are noted. There is a normal appearance of cerebellar parenchyma. No focal lesion or abnormal signal intensity. There are no supra or infratentorial masses. There is no abnormal enhancement. No intra or extra-axial hematomas. No shift of midline structures. The basal ganglia, thalami, and brainstem are normal in appearance. The basal cisterns are within normal limits. No abnormality is detected in both pontocerebellar areas. The paranasal sinuses are clear. The orbits are unremarkable. IMPRESSION: 1. No evidence of acute infarction. 2. Age matched involutional brain changes and deep white matter chronic low-grade ischemia. 3. Findings are concordant with the previous study. Electronically Signed by: Celestina Dye MD. (01/06/2023 14:42:38 WOOD ROOM SUPERVISOR)
--- NOTE | 2023-01-06 17:39 | XRAY ---
CLINICAL HISTORY:Elevated D-Dimer; COMPARISON:X-ray chest of the same date 01/06/2023; TECHNIQUES:Axial CTA images of the chest with intravenous contrast using a pulmonary embolism protocol was performed. 150 ml of Isovue 370 was administered as an intravenous contrast agent. Sagittal and coronal reconstructions were also obtained; FINDINGS: No evidence of central or segmental pulmonary embolism is seen. There is no evidence of aneurysm or dissection of the thoracic aorta. No consolidation is observed. No pleural or pericardial effusion. IMPRESSION: Negative CTA study for pulmonary embolism. Electronically Signed by: Celestina Dye MD. (01/06/2023 16:34:50 RECRUITING TEAM LEAD)
--- NOTE | 2023-01-06 18:44 | PCM.NOTE ---
Date and Time: 01/06/231838 Subjective Assessment: Overall reports feeling better, and on assessment, now oriented to month and day. However, the patient's daughter at bedside reports persistent confusion and behavior/comments not consistent with her baseline. The patient was seen and examined via telemedicine. The entirety of this encounter was performed via telemedicine. The patient consented to this telemedicine encounter. - Review of Systems Constitutional: No Symptoms Eyes: No Symptoms Ears, Nose, & Throat: No Symptoms Respiratory: No Symptoms Cardiac: No Symptoms Abdominal/Gastrointestinal: No Symptoms Genitourinary Symptoms: No Symptoms Musculoskeletal: No Symptoms Skin: No Symptoms Neurological: Dizziness Psychological: No Symptoms Endocrine: No Symptoms Hematologic/Lymphatic: No Symptoms Immunological/Allergic: No Symptoms All Other Systems: Reviewed and Negative Objective Exam General Appearance: no apparent distress Neurologic Exam: alert, oriented x 3, cooperative, network architect II-XII nml as tested, nml cerebellar function Skin Exam: normal color Eye Exam: PERRL, EOMI, eyes nml inspection Ears, Nose, Throat Exam: normal ENT inspection Neck Exam: normal inspection, non-tender, supple, full range of motion Respiratory Exam: normal breath sounds, lungs clear Cardiovascular Exam: regular rate/rhythm, normal heart sounds Gastrointestinal/Abdomen Exam: soft, normal bowel sounds Extremity Exam: normal inspection, normal range of motion Back Exam: normal inspection, normal range of motion Pelvic Exam: deferred Rectal Exam: deferred OBJECTIVE DATA Vital Signs: Vital Signs - 24 hr Temp Pulse Resp BP Pulse Ox 01/06/23 16:00 17 01/06/23 12:11 88 18 98 01/06/23 12:00 97.7 F 86 16 149/68 99 01/06/23 08:00 16 01/06/23 07:57 96.9 F 79 16 163/74 99 01/06/23 04:00 97.4 F 68 18 150/72 98 01/06/23 00:00 18 01/05/23 23:47 84 20 141/77 96 01/05/23 23:46 97.0 F 81 18 156/74 96 01/05/23 20:00 97.3 F 81 18 148/97 95 Pain Assessment - Last Documented Pain Intensity 7 Pain Scale Used 0-10 Pain Scale Intake and Output: Intake & Output 01/04/23 01/05/23 01/06/23 01/07/23 11:59 11:59 11:59 11:59 Intake Total 1995 Output Total 1100 600 Balance 896 -240 Weight 72 kg Lab Results: Lab Results-Last 24 Hours 01/05/23 01/05/23 01/05/23 Range/Units 18:55 21:54 23:40 D-Dimer (0.0-0.50) mg/L Sodium (137-145) mmol/L Potassium (3.5-5.1) mmol/L Chloride (98-107) mmol/L Carbon Dioxide (22-30) mmol/L Anion Gap (5-15) MEQ/L BUN (7-17) mg/dL Creatinine (0.52-1.04) mg/dL Estimated GFR ML/MIN Glucose (74-106) mg/dL POC Glucometer 133 H (74 to 106) mg/dL Calcium (8.4-10.2) mg/dL Magnesium (1.6-2.3) mg/dL Ammonia (9-30) umol/L Troponin I < 0.012 < 0.012 (0.000-0.034) ng/mL Triglycerides (30-150) mg/dL Cholesterol (50-200) mg/dL LDL Cholesterol (30-100) mg/dL HDL Cholesterol (40-60) mg/dL Heart Disease Risk Ratio 01/06/23 01/06/23 01/06/23 Range/Units 04:30 04:30 07:35 D-Dimer (0.0-0.50) mg/L Sodium 137 (137-145) mmol/L Potassium 4.5 D (3.5-5.1) mmol/L Chloride 101 (98-107) mmol/L Carbon Dioxide 24 (22-30) mmol/L Anion Gap 16.7 H (5-15) MEQ/L BUN 10 (7-17) mg/dL Creatinine 0.51 L (0.52-1.04) mg/dL Estimated GFR > 60.0 ML/MIN Glucose 128 H (74-106) mg/dL POC Glucometer 154 H (74 to 106) mg/dL Calcium 8.9 (8.4-10.2) mg/dL Magnesium 2.5 H (1.6-2.3) mg/dL Ammonia < 9 L (9-30) umol/L Troponin I (0.000-0.034) ng/mL Triglycerides 91 (30-150) mg/dL Cholesterol 199 (50-200) mg/dL LDL Cholesterol 79 (30-100) mg/dL HDL Cholesterol 100 H (40-60) mg/dL Heart Disease Risk Ratio 2.0 01/06/23 01/06/23 01/06/23 Range/Units 11:32 13:47 16:52 D-Dimer 0.88 H* (0.0-0.50) mg/L Sodium (137-145) mmol/L Potassium (3.5-5.1) mmol/L Chloride (98-107) mmol/L Carbon Dioxide (22-30) mmol/L Anion Gap (5-15) MEQ/L BUN (7-17) mg/dL Creatinine (0.52-1.04) mg/dL Estimated GFR ML/MIN Glucose (74-106) mg/dL POC Glucometer 151 H 119 H (74 to 106) mg/dL Calcium (8.4-10.2) mg/dL Magnesium (1.6-2.3) mg/dL Ammonia (9-30) umol/L Troponin I (0.000-0.034) ng/mL Triglycerides (30-150) mg/dL Cholesterol (50-200) mg/dL LDL Cholesterol (30-100) mg/dL HDL Cholesterol (40-60) mg/dL Heart Disease Risk Ratio Radiology Exams: Radiology Procedures Category Date Time Status ABDOMEN AND PELVIS W/0 CONTRAS [CT] Stat Exams 01/05/23 15:01 Completed CHEST 1 VIEW (PORTABLE) Urgent Exams 01/06/23 13:47 Taken CHEST WITH CONTRAST [CT] Stat Exams 01/06/23 14:55 Completed HEAD WITHOUT CONTRAST [CT] Stat Exams 01/05/23 14:55 Completed MRI BRAIN W & W/O CONTRAST [MRI] Routine Exams 01/06/23 19:23 Completed Multi-Disciplinary Progress Notes: Multi-Disciplinary Progress Notes 01/06/23 17:31 OT Plan of Care Note by Sarah Ceja OT Eval OT Inpatient Eval and POC Start: 01/05/23 19:19 Freq: ROUTINE Status: Complete Protocol: Created 01/05/23 19:21 PS (Rec: 01/05/23 19:21 PS [id number]) Document 01/06/23 17:07 KA (Rec: 01/06/23 17:30 KA [id number]) OT Evaluation Subjective PATIENT IS ALERT AND ORIENTED TO NAME, LOCATION, YEAR, MONTH , BUT NOT THE DATE. SHE IS ABLE TO PROVIDE MINIMAL HISTORY DUE TO DISTRACTION AND TANGENTS. Pertinent Past Medical History TIA, COPD, HTN, BRONCHITIS, DM2, ARTHRITIS, RA, OLITIS, DIVERTICULITIS, GERD, ANXIETY, BIPOLAR, DEPRESSION, PANIC DISORDER PAST SURGERY: CARDIAC CATH, APPENDECTOMY, CHOLECYSTECTOMY, TOTAL RIGHT KNEE REPLACEMENT, CERVICAL FUSION 5, 6, RIGHT ROTATOR CUFF REPAIR, RIGHT SHOULDER DISLOCATION, BICEP TENODESIS. Prior Level of Function LIMITED HISTORY PROVIDED: RECENTLY DISCHARGED FROM OUTPATIENT PT TO HOME, SHE LIVES ALONE IN APARTMENT COMPLEX WITH ELEVATOR ACCESS, INDEPENDENT WITH ADLS; HOWEVER REPORTS DIFFICULTY WITH BATHING AND TOILETING RECENTLY , FELL 12-19-22 AND REPORT OF LEFT SHOULDER PAIN. HER DAUGHTER ASSIST WITH MEALS. Equipment at Home Prior to Admission Walker Home Setup [id number] Comment SILVESTRE REPORTS THE SHOWER IS TOO SMALL FOR A SEAT Date 01/06/23 Feeding WFL Grooming Impaired Comment MIN ASSIST DUE TO LEFT SHOULDER PAIN Bathing Impaired Comment MAX ASSIST Dressing Impaired Comment UB: MAX ASSIST LB: MOD ASSIST Toileting Impaired Comment MOD ASSIST- MANAGING CLOTHING AND HYGIENE IADLS (If indicated) Homemaking,etc Impaired Bed Mobility Impaired Comment MIN ASSIST Toilet Transfers Impaired Comment CGA Shower Transfers Impaired Comment MOD ASSIST Functional Transfers Impaired Comment MIN ASSIST Range of Motion Impaired Comment RIGHT UE: WFL LEFT SHOULDER: AROM LIMITATIONS DUE TO PAIN (ELBOW , FOREARM, AND WRIST WFL) Coordination FINGER TO NOSE: WFL ATTEMPTED UE BOBBY BUT UNABLE TO COMPLETE DUE TO LEFT SHOULDER PAIN Functional Strength RIGHT UE WEAKNESS: 4/5 MMT LEFT UE WEAKNESS AND PAIN: UNABLE TO ASSES DUE TO PAIN WITH ATTEMPTING FUNCTIONAL TASKS. Functional Endurance POOR - (TOLERATES APPROXIMATELY 3 MINUTES OF STANDING PRIOR TO FATIGUE AND DIZZINESS). Cognition ALERT AND ORIENTED TO NAME, MONTH, YEAR, AND LOCATION. MEMORY TEST (RECALL WORDS AFTER 2 MINUTES)- 2/4 WORDS RECALLED, 1/4 WITH 1 VERBAL CUE, AND UNABLE OT RECALL LAST WORD WITH VERBAL CUE. Pain PATIENT RATES 8/10 LEFT SHOULDER PAIN WITH PHYSIOLOGICAL SYMPTOMS PRESENT , OT PROVIDED ICE PACK TO LEFT SHOULDER AT END OF SESSION. Objective Data/Standardized Assessment(s JARAMILLO INDEX OF INDEPENDENCE IN ) ADLS TOTAL SCORE: 1 OUT OF 6 POINTS= LOW INDEPENDENCE IN ADLS. OT Plan Of Care Date of Evaluation 01/06/23 Treatment Diagnosis AMS, DIZZINESS, HYPOKALEMIA Precaution/Orders as written EVAL AND TREAT Teaching Recipient Patient Patient is Aware of Diagnosis and Yes Prognosis Patient is receptive to Plan of Care and Yes contributory towards OT goals Functional Problem List PATIENT PRESENTS WITH IMPAIREMENTS IN SAFETY INSIGHT , GENERALIZED WEAKNESS, INCREASED LEFT SHOULDER PAIN, AND INSTABILITY INCREASING FALL RISK WITH RECOMMENDATION FOR FURTHER SKILLED THERAPY TO FACILIATE SAFE DISCHARGE. Therapuetic Interventions ADLS, THERAPEUTIC EXERCISE, MANUAL THERAPY, TRANSFER TRAINING/THERAPEUTIC ACTIVITY Functional Goals of Treatment 1. PATIENT REPORT A DECREASE IN LEFT SHOULDER PAIN TO 4/10 TO FACILITATE QUALITY OF LIFE. 2. PATIENT WILL COMPLETE FUNCTIONAL TRANSFERS WITH CGA INCLUDING TOILET T/F WITH MANAGING CLOTHING TO FACILIATE SAFE DISCHARGE. Frequency/Duration 5X/WEEK (EXCLUDES WEEKENDS AND HOLIDAYS) Rehabilitation Potential for Goals/ Good Barriers to Progress Discharge Recommendations/Plan OT RECOMMENDS FURTHER SKILLED THERAPY PRIOR TO RETURN HOME VS. 22/02 CARE WITH HOME HEALTH THERAPY. Initialized on 01/06/23 17:31 - END OF NOTE 01/06/23 16:12 Case Management Note by Bing Sainz PAPERWORK INITIATED AT THIS TIME- IN REVIEW AT THIS TIME Initialized on 01/06/23 16:12 - END OF NOTE 01/06/23 14:00 (created 01/06/23 16:14) Case Management Note by Bing Sainz FROM [facility] CALLED- THEY HAVE ACCEPTED PATIENT UNDER HER MEDICAID Initialized on 01/06/23 16:14 - END OF NOTE Assessment/Plan (1) Urinary tract infection Current Visit: Yes Status: Acute Assessment & Plan: Urine culture shows prelim growth of GNR; final ID pending. Strongly suspect that the patient acute metabolic encephalopathy is due to the patient's acute cystitis/UTI. Placed on IV antibiotics empirically and will follow culture results and clinical course. Code(s): N39.0 - URINARY TRACT INFECTION, SITE NOT SPECIFIED (2) Altered mental status Current Visit: Yes Status: Acute Assessment & Plan: MRI negative for stroke. Appreciate teleneurology evaluation. Contacted by the teleneurologist after the evaluation; the doctor concurred that the encephalopathy is likely metabolic in nature and not due to an occult stroke. Code(s): R41.82 - ALTERED MENTAL STATUS, UNSPECIFIED (3) Dizziness Current Visit: Yes Status: Acute Assessment & Plan: Patient lives alone. Will need PT and safety assessment. Code(s): R42 - DIZZINESS AND GIDDINESS (4) Hypokalemia Current Visit: Yes Status: Acute Assessment & Plan: Replete as needed. Code(s): E87.6 - HYPOKALEMIA
[2023-01-06] MEDS ORDERED: NON-FORMULARY ITEM (Potassium Chloride [Potassium Chloride] 20 MEQ Tab.Er.Prt) PO SCH (22:00)
[2023-01-06] MEDS ORDERED: Desyrel 150 MG PO SCH (22:00)
[2023-01-06] MEDS ORDERED: NON-FORMULARY ITEM (Hydroxychloroquine Sulfate [Hydroxychloroquine Sulfate] 200 MG Tablet) PO SCH (22:00)
[2023-01-06] MEDS ORDERED: NON-FORMULARY ITEM (Trazodone Hcl [Trazodone Hcl] 100 MG Tablet) PO SCH (22:00)
[2023-01-06] MEDS ORDERED: NON-FORMULARY ITEM (Budesonide/Glycopyr/Formoterol [Breztri Aerosphere Inhaler] 10.7 GM Hf IH SCH (22:00)
[2023-01-06] MEDS ORDERED: NON-FORMULARY ITEM (Simvastatin [Simvastatin] 40 MG Tablet) PO SCH (22:00)
[2023-01-06] MEDS ORDERED: ZOCOR 20MG PO SCH (22:00)
--- NOTE | 2023-01-06 22:23 | XRAY ---
CLINICAL HISTORY:Cough COMPARISON:None; TECHNIQUES:X-ray of the chest showing 1 view: AP view; FINDINGS: Radiographic examination of the chest demonstrates clear lungs. There is no evidence of any focal area of consolidation. Enlarged cardiomediastinal silhouette. The mannie are normal in size and position. The tracheal lucency is centrally placed. Blurred right cardiophrenic angle representing fat pad. Both costophrenic and left cardiophrenic angles are clear. Unremarkable thoracic bony cage with no definite fractures detected. IMPRESSION: 1-Enlarged cardiomediastinal silhouette. 2-Blurred right cardiophrenic angle. 3-Further evaluation with chest CTA is recommended. Electronically Signed by: Celestina Dye MD. (01/06/2023 21:13:20 FUR GRADER)
[2023-01-07] MEDS: HYDROCODONE-ACETAMIN 10-325 MG PO PRN ×2 (01:00→08:12)
[2023-01-07] MEDS: SYNTHROID 50 MCG PO SCH (06:59)
[2023-01-07] MEDS: Sodium Chloride 0.9% 1000 ML 1,000 ML IV SCH ×2 (08:54→11:16)
[2023-01-07] MEDS ORDERED: NON-FORMULARY ITEM (Cholecalciferol (Vitamin D3) [Vitamin D3] 1,000 UNIT Capsule) PO SCH (10:00)
[2023-01-07] MEDS ORDERED: NON-FORMULARY ITEM (Famotidine [Famotidine] 40 MG Tablet) PO SCH (10:00)
[2023-01-07] MEDS ORDERED: ARIPIPRAZOLE 2 MG PO SCH (10:00)
[2023-01-07] MEDS ORDERED: NON-FORMULARY ITEM (Cyanocobalamin (Vitamin B-12) [B-12] 1,000 MCG Tablet) PO SCH (10:00)
[2023-01-07] MEDS: Abilify 10 MG PO SCH (10:31)
[2023-01-07] MEDS: FEOSOL 325 MG PO SCH (10:34)
[2023-01-07] MEDS: FISH OIL 1,000 MG CAPSULE PO SCH (10:35)
[2023-01-07] MEDS: Klor Con PO SCH (10:35)
[2023-01-07] MEDS: MAG-OX 400 PO SCH (10:37)
[2023-01-07] MEDS: LYRICA 150MG PO SCH (10:37)
[2023-01-07] MEDS: MYRBETRIQ PO SCH (10:38)
[2023-01-07] MEDS: NON-FORMULARY ITEM PO SCH (10:38)
[2023-01-07] MEDS: Pepcid 20 MG PO SCH (10:39)
[2023-01-07] MEDS: PLAVIX Tablet PO SCH (10:40)
[2023-01-07] MEDS: Singulair 10 MG PO SCH (10:41)
[2023-01-07] MEDS: VITAMIN D PO SCH (10:42)
[2023-01-07] MEDS: Vitamin B-12 500 MCG PO SCH (10:42)
[2023-01-07] MEDS: Vitamin C 500 MG PO SCH (10:43)
[2023-01-07] MEDS: ZOLOFT 50 MG TABLET PO SCH (10:43)
[2023-01-07] MEDS: ROCEPHIN 1 Gm-D5w 50 ml Bag** 1 G/50 ML IVPB IV SCH (10:44)
--- NOTE | 2023-01-07 10:57 | PCM.NOTE ---
Date and Time: 01/07/23 1053 Subjective Assessment: Patient doing well without any specific complaints. The patient was seen and examined via telemedicine. The entirety of this encounter was performed via telemedicine. The patient consented to this telemedicine encounter. 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, normal mood/affect, nml cerebellar function Skin Exam: normal color Eye Exam: PERRL, EOMI, eyes nml inspection Ears, Nose, Throat Exam: normal ENT inspection Neck Exam: normal inspection, non-tender, supple, full range of motion Respiratory Exam: normal breath sounds, lungs clear Cardiovascular Exam: regular rate/rhythm, normal heart sounds Gastrointestinal/Abdomen Exam: soft, normal bowel sounds Extremity Exam: normal inspection, normal range of motion Back Exam: normal range of motion OBJECTIVE DATA Vital Signs: Vital Signs - 24 hr Temp Pulse Resp BP Pulse Ox 01/07/23 08:00 98.6 F 83 16 143/65 92 L 01/07/23 04:18 83 18 97 01/07/23 04:00 98.2 F 82 16 122/58 93 L 01/07/23 00:00 18 01/06/23 23:31 98.7 F 88 18 149/67 96 01/06/23 20:00 16 01/06/23 19:44 98.0 F 79 16 146/76 100 01/06/23 18:20 78 18 96 01/06/23 16:00 17 01/06/23 12:11 88 18 98 01/06/23 12:00 97.7 F 86 16 149/68 99 Pain Assessment - Last Documented Pain Intensity 10 Pain Scale Used 0-10 Pain Scale Intake and Output: Intake & Output 01/04/23 01/05/23 01/06/23 01/07/23 11:59 11:59 11:59 11:59 Intake Total 1995 2248 Output Total 1099 2650 Balance 896 -401 Weight 72 kg Lab Results: Lab Results-Last 24 Hours 01/06/23 01/06/23 01/06/23 Range/Units 11:32 13:47 16:52 D-Dimer 0.88 H* (0.0-0.50) mg/L POC Glucometer 151 H 119 H (74 to 106) mg/dL 01/06/23 01/07/23 Range/Units 21:20 08:15 D-Dimer (0.0-0.50) mg/L POC Glucometer 115 H 146 H (74 to 106) mg/dL Radiology Exams: Radiology Procedures Category Date Time Status ABDOMEN AND PELVIS W/0 CONTRAS [CT] Stat Exams 01/05/23 15:01 Completed CHEST 1 VIEW (PORTABLE) Urgent Exams 01/06/23 13:47 Completed CHEST WITH CONTRAST [CT] Stat Exams 01/06/23 14:55 Completed HEAD WITHOUT CONTRAST [CT] Stat Exams 01/05/23 14:55 Completed MRI BRAIN W & W/O CONTRAST [MRI] Routine Exams 01/06/23 19:23 Completed Multi-Disciplinary Progress Notes: Multi-Disciplinary Progress Notes 01/06/23 17:31 OT Plan of Care Note by Sarah Ceja OT Eval OT Inpatient Eval and POC Start: 01/05/23 19:19 Freq: ROUTINE Status: Complete Protocol: Created 01/05/23 19:21 PS (Rec: 01/05/23 19:21 PS [id number]) Document 01/06/23 17:07 KA (Rec: 01/06/23 17:30 KA [id number]) OT Evaluation Subjective PATIENT IS ALERT AND ORIENTED TO NAME, LOCATION, YEAR, MONTH , BUT NOT THE DATE. SHE IS ABLE TO PROVIDE MINIMAL HISTORY DUE TO DISTRACTION AND TANGENTS. Pertinent Past Medical History TIA, COPD, HTN, BRONCHITIS, DM2, ARTHRITIS, RA, OLITIS, DIVERTICULITIS, GERD, ANXIETY, BIPOLAR, DEPRESSION, PANIC DISORDER PAST SURGERY: CARDIAC CATH, APPENDECTOMY, CHOLECYSTECTOMY, TOTAL RIGHT KNEE REPLACEMENT, CERVICAL FUSION 5, 6, RIGHT ROTATOR CUFF REPAIR, RIGHT SHOULDER DISLOCATION, BICEP TENODESIS. Prior Level of Function LIMITED HISTORY PROVIDED: RECENTLY DISCHARGED FROM OUTPATIENT PT TO HOME, SHE LIVES ALONE IN APARTMENT COMPLEX WITH ELEVATOR ACCESS, INDEPENDENT WITH ADLS; HOWEVER REPORTS DIFFICULTY WITH BATHING AND TOILETING RECENTLY , FELL 12-19-22 AND REPORT OF LEFT SHOULDER PAIN. HER DAUGHTER ASSIST WITH MEALS. Equipment at Home Prior to Admission Walker Home Setup [id number] Comment SILVESTRE REPORTS THE SHOWER IS TOO SMALL FOR A SEAT Date 01/06/23 Feeding WFL Grooming Impaired Comment MIN ASSIST DUE TO LEFT SHOULDER PAIN Bathing Impaired Comment MAX ASSIST Dressing Impaired Comment UB: MAX ASSIST LB: MOD ASSIST Toileting Impaired Comment MOD ASSIST- MANAGING CLOTHING AND HYGIENE IADLS (If indicated) Homemaking,etc Impaired Bed Mobility Impaired Comment MIN ASSIST Toilet Transfers Impaired Comment CGA Shower Transfers Impaired Comment MOD ASSIST Functional Transfers Impaired Comment MIN ASSIST Range of Motion Impaired Comment RIGHT UE: WFL LEFT SHOULDER: AROM LIMITATIONS DUE TO PAIN (ELBOW , FOREARM, AND WRIST WFL) Coordination FINGER TO NOSE: WFL ATTEMPTED UE BOBBY BUT UNABLE TO COMPLETE DUE TO LEFT SHOULDER PAIN Functional Strength RIGHT UE WEAKNESS: 4/5 MMT LEFT UE WEAKNESS AND PAIN: UNABLE TO ASSES DUE TO PAIN WITH ATTEMPTING FUNCTIONAL TASKS. Functional Endurance POOR - (TOLERATES APPROXIMATELY 3 MINUTES OF STANDING PRIOR TO FATIGUE AND DIZZINESS). Cognition ALERT AND ORIENTED TO NAME, MONTH, YEAR, AND LOCATION. MEMORY TEST (RECALL WORDS AFTER 2 MINUTES)- 2/4 WORDS RECALLED, 1/4 WITH 1 VERBAL CUE, AND UNABLE OT RECALL LAST WORD WITH VERBAL CUE. Pain PATIENT RATES 8/10 LEFT SHOULDER PAIN WITH PHYSIOLOGICAL SYMPTOMS PRESENT , OT PROVIDED ICE PACK TO LEFT SHOULDER AT END OF SESSION. Objective Data/Standardized Assessment(s JARAMILLO INDEX OF INDEPENDENCE IN ) ADLS TOTAL SCORE: 1 OUT OF 6 POINTS= LOW INDEPENDENCE IN ADLS. OT Plan Of Care Date of Evaluation 01/06/23 Treatment Diagnosis AMS, DIZZINESS, HYPOKALEMIA Precaution/Orders as written EVAL AND TREAT Teaching Recipient Patient Patient is Aware of Diagnosis and Yes Prognosis Patient is receptive to Plan of Care and Yes contributory towards OT goals Functional Problem List PATIENT PRESENTS WITH IMPAIREMENTS IN SAFETY INSIGHT , GENERALIZED WEAKNESS, INCREASED LEFT SHOULDER PAIN, AND INSTABILITY INCREASING FALL RISK WITH RECOMMENDATION FOR FURTHER SKILLED THERAPY TO FACILIATE SAFE DISCHARGE. Therapuetic Interventions ADLS, THERAPEUTIC EXERCISE, MANUAL THERAPY, TRANSFER TRAINING/THERAPEUTIC ACTIVITY Functional Goals of Treatment 1. PATIENT REPORT A DECREASE IN LEFT SHOULDER PAIN TO 4/10 TO FACILITATE QUALITY OF LIFE. 2. PATIENT WILL COMPLETE FUNCTIONAL TRANSFERS WITH CGA INCLUDING TOILET T/F WITH MANAGING CLOTHING TO FACILIATE SAFE DISCHARGE. Frequency/Duration 5X/WEEK (EXCLUDES WEEKENDS AND HOLIDAYS) Rehabilitation Potential for Goals/ Good Barriers to Progress Discharge Recommendations/Plan OT RECOMMENDS FURTHER SKILLED THERAPY PRIOR TO RETURN HOME VS. 22/02 CARE WITH HOME HEALTH THERAPY. Initialized on 01/06/23 17:31 - END OF NOTE 01/06/23 16:12 Case Management Note by Bing Sainz PAPERWORK INITIATED AT THIS TIME- IN REVIEW AT THIS TIME Initialized on 01/06/23 16:12 - END OF NOTE 01/06/23 14:00 (created 01/06/23 16:14) Case Management Note by Bing Sainz [facility] CALL[facility]- THEY HAVE ACCEPTED PATIENT UNDER HER MEDICAID Initialized on 01/06/23 16:14 - END OF NOTE Assessment/Plan (1) Urinary tract infection Current Visit: Yes Status: Acute Assessment & Plan: Pansensitive E coli. Can convert to oral Omnicef at discharge. Code(s): N39.0 - URINARY TRACT INFECTION, SITE NOT SPECIFIED (2) Altered mental status Current Visit: Yes Status: Acute Assessment & Plan: Improved. Appreciate neurology evaluation. Code(s): R41.82 - ALTERED MENTAL STATUS, UNSPECIFIED (3) Dizziness Current Visit: Yes Status: Acute Assessment & Plan: Improved. Still unsteady, however. Will benefit from consideration of rehab placement. Anticipate 30 days or less stay at rehab facility. Case management coordination in progress. Code(s): R42 - DIZZINESS AND GIDDINESS (4) Hypokalemia Current Visit: Yes Status: Acute Assessment & Plan: Repleted. Code(s): E87.6 - HYPOKALEMIA
[2023-01-07] MEDS: LASIX 20 MG PO SCH (10:59)
[2023-01-07] MEDS: Miralax Powder 17GM PACKET PO SCH (11:12)
[2023-01-07 12:02] VITALS: BP 134/61; PULSE 77; O2SAT 98
[2023-01-07] MEDS ORDERED: Omnicef 125 MG/5 ML SUSP PO ONE (12:43)
[2023-01-07] MEDS ORDERED: OMNICEF 300 MG PO ONE (13:00)
--- NOTE | 2023-01-07 14:16 | PCM.DS ---
Discharge Summary Date of Admission: 01/05/23 18:31 Date of Discharge: 01/07/23 Admitting Physician: SHAKA MCKEON MD Consults: Consults on Case 01/06/23 10:30 Tele-Health Consult ROUTINE Primary Care Provider: ADIN MARSH Allergies Allergies Penicillins Allergy (Mild, Verified 01/05/23 13:58) itching and hives meperidine HCl [From Demerol] Allergy (Unknown, Verified 01/05/23 13:58) "MAKES CRAZY" Hospital Summary - Hospital Course Hospital Course: Clinically improving in terms of acute metabolic encephalopathy, with treatmetn of underlying UTI. Urine culture grew pansensitive E coli. Will switch to oral cefdinir at discharge. Patient still demonstrating unsteadiness and has been accepted at rehab facility. - Vitals & Intake/Output Vital Signs: Vital Signs Temperature 97.8 F 01/07/23 12:00 Pulse Rate 77 01/07/23 12:00 Respiratory Rate 16 01/07/23 12:00 Blood Pressure 134/61 01/07/23 12:00 O2 Sat by Pulse Oximetry 98 01/07/23 12:00 Intake & Output: Intake & Output 01/05/23 01/06/23 01/07/23 01/08/23 11:59 11:59 11:59 11:59 Intake Total 1995 2249 Output Total 1100 2650 Balance 896 -401 Weight 72 kg - Lab Result Diagrams: 01/05/23 15:48 01/06/23 04:30 Lab Results-Last 24 Hrs: Lab Results-Last 24 Hours 01/06/23 01/06/23 01/06/23 Range/Units 13:47 16:52 21:20 D-Dimer 0.88 H* (0.0-0.50) mg/L POC Glucometer 119 H 115 H (74 to 106) mg/dL 01/07/23 01/07/23 Range/Units 08:15 11:40 D-Dimer (0.0-0.50) mg/L POC Glucometer 146 H 151 H (74 to 106) mg/dL Micro Results-Entire Visit: Microbiology 01/05/23 15:48 Urine Culture - Final Urine, Void Escherichia Coli Accuchecks Date 01/07/23 Date 01/07/23 Date 06/07/23 Time 12:01 Time 08:18 Time 17:52 - Radiology Exams Ordered Rad Exams-Entire Visit: Radiology Procedures Category Date Time Status ABDOMEN AND PELVIS W/0 CONTRAS [CT] Stat Exams 01/05/23 15:01 Completed CHEST 1 VIEW (PORTABLE) Urgent Exams 01/06/23 13:47 Completed CHEST WITH CONTRAST [CT] Stat Exams 01/06/23 14:55 Completed HEAD WITHOUT CONTRAST [CT] Stat Exams 01/05/23 14:55 Completed MRI BRAIN W & W/O CONTRAST [MRI] Routine Exams 01/06/23 19:23 Completed - Procedures and Test Procedures and Tests throughout Hospitalization: Therapy Orders & Screens 01/05/23 18:33 EKG Q8HX2,QAMX3,PRN Comment: 01/05/23 19:18 PT Eval & Treat ( Order) ONCE Reason for Eval:: dizziness Diagnosis: hypokalemia, confusion, normocytic anemia 01/05/23 19:19 OT Eval and Treat (MD Order) ROUTINE Comment: Physician Instructions: Reason For Exam: 01/05/23 22:53 EKG ROUTINE Comment: Diagnosis: hypokalemia, confusion, normocytic anemia 01/06/23 05:00 EKG DAILY Comment: Diagnosis: hypokalemia, confusion, normocytic anemia 01/06/23 12:13 Respiratory Therapy Assessment DAILY Comment: Diagnosis: hypokalemia, confusion, normocytic anemia 01/07/23 05:00 EKG DAILY Comment: Diagnosis: hypokalemia, confusion, normocytic anemia 01/08/23 05:00 EKG DAILY Comment: Diagnosis: hypokalemia, confusion, normocytic anemia Discharge Exam General Appearance: no apparent distress, alert Neurologic Exam: alert, oriented x 3, cooperative, 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, normal mood/affect, nml cerebellar function Eye Exam: PERRL, EOMI, eyes nml inspection Ears, Nose, Throat Exam: normal ENT inspection Neck Exam: normal inspection, non-tender, supple, full range of motion Respiratory Exam: normal breath sounds, lungs clear Cardiovascular Exam: regular rate/rhythm, normal heart sounds Gastrointestinal/Abdomen Exam: soft, normal bowel sounds Back Exam: normal range of motion Extremity Exam: normal inspection, normal range of motion Skin Exam: normal color Final Diagnosis/Problem List - Final Discharge Diagnosis/Problem (1) Urinary tract infection Current Visit: Yes Status: Acute Assessment & Plan: Oral antibiotics x 5 days Code(s): N39.0 - URINARY TRACT INFECTION, SITE NOT SPECIFIED (2) Altered mental status Current Visit: Yes Status: Acute Assessment & Plan: Improved Code(s): R41.82 - ALTERED MENTAL STATUS, UNSPECIFIED (3) Dizziness Current Visit: Yes Status: Acute Assessment & Plan: Improved Code(s): R42 - DIZZINESS AND GIDDINESS (4) Hypokalemia Current Visit: Yes Status: Acute Assessment & Plan: Repleted Code(s): E87.6 - HYPOKALEMIA - Discharge Disposition: Home, Self-Care Condition: Stable Prescriptions: New Cefdinir 300 mg PO BID #10 cap Continue Hydroxychloroquine Sulfate 200 mg PO BID Trazodone HCl 150 mg PO HS Albuterol Sulfate [Ventolin Hfa] 2 puffs IH QID Cyanocobalamin (Vitamin B-12) [B-12] 1,000 mcg PO DAILY Magnesium Oxide 400 mg [Mag-Ox 400] 400 mg PO BID Ascorbic Acid 500 mg [Vitamin C 500 MG] 500 mg PO DAILY Simvastatin 40 mg PO HS Furosemide 20 mg [Lasix 20 mg] 20 mg PO DAILY Levothyroxine Sodium 50 Mcg [Synthroid 50 Mcg] 50 mcg PO DAILY [place]-3 Fatty Acids/Fish Oil [Fish Oil 1,000 mg Capsule] 1,000 mg PO DAILY Pregabalin [Lyrica 150Mg] 150 mg PO BID Cholecalciferol (Vitamin D3) [Vitamin D3] 1,000 unit PO DAILY Hydrocodone/Acetaminophen [Hydrocodone-Acetamin 10-325 mg] 1 each PO TIDPRN PRN PRN Reason: Pain Budesonide/Glycopyr/Formoterol [Breztri Aerosphere Inhaler] 10.7 gm IH BID Clopidogrel Bisulfate [PLAVIX Tablet] 75 mg PO DAILY #0 Sertraline HCl 50 mg [Zoloft 50 mg Tablet] 100 mg PO DAILY Montelukast Sodium 10 mg [Singulair 10 MG] 10 mg PO DAILY ARIPiprazole [Abilify Mycite] 2 mg PO DAILY Mirabegron [Myrbetriq] 25 mg PO DAILY Famotidine 40 mg PO DAILY Ferrous Sulfate 325 mg [Feosol 325 mg] 325 mg PO DAILY Baclofen 10 mg [Lioresal 10 mg] 10 mg PO HSPRN PRN PRN Reason: Muscle Spasms Clotrimazole Cream 30 gm [Lotrimin Cream 30 gm] 15 gm TP BIDPRN PRN PRN Reason: irratation Potassium Chloride 60 meq PO BID Additional Instructions: ADMIT TO [facility] 1800 JADEN DIET PT/OT EVAL AND TREAT SEE ATTACHED MED LIST Forms: Transfer Record Residential
== END 2023-01-07 15:05 ==
LOC: ED 13:54 → MED SURG 18:31
PROVIDERS: ADMIT Internal Medicine; ATTEND Family Medicine
DX: N39.0 Urinary tract infection, site not specified (principal); R41.82 Altered mental status, unspecified; R42 Dizziness and giddiness; E87.6 Hypokalemia; G93.41 Metabolic encephalopathy; W19.XXXA Unspecified fall, initial encounter; D64.9 Anemia, unspecified; E78.5 Hyperlipidemia, unspecified; E11.9 Type 2 diabetes mellitus without complications; I10 Essential (primary) hypertension; Z79.01 Long term (current) use of anticoagulants; Z79.899 Other long term (current) drug therapy; Z20.828 Contact with and (suspected) exposure to other viral communicable diseases
CPT/HCPCS: 36000; 36415; 70450; 70553; 71045; 71260; 74176; 80048; 80053; 80061; 81001; 82140; 82947; 83690; 83721; 83735; 83880; 84484; 85025; 85379; 87077; 87086; 87186; 93005; 93041; 94640; 94760; 97161; 97165; 97530; 99284; Q3014; 93268; G0378; J0696; J3475; J3480; A9270-GY

== ENCOUNTER 2023-03-25 09:44 | Day surgery (SDC) | payer MEDICARE ==
[2012-06-02 14:05] VITALS: BP 115/53
[2023-03-25] MEDS ORDERED: Depo-Medrol 40 MG/ML IM ONE (09:45)
[2023-03-25] MEDS ORDERED: LIDOCAINE HCL 2% 100 MG/5 ML IJ ONE (09:45)
[2023-03-25] MEDS ORDERED: DIPRIVAN 200 MG/20 ML IV ONE (10:51)
[2023-03-25] MEDS ORDERED: Lactated Ringers 1,000 ML IV ONE (11:25)
--- NOTE | 2023-03-25 14:01 | XRAY ---
Indication: Bilateral L4-S1 MBB. Intraoperative fluoroscopy provided for 16 seconds. Single digital spot image submitted for interpretation demonstrates posterior needle tips projecting over the expected left and right L4-S1 nerve roots. Correlate with intraoperative findings/report.
--- NOTE | 2023-03-25 14:44 | XRAY ---
16 seconds of fluoroscopy was used in surgery for a bilateral L4-S1 MBB.
== END 2023-03-25 11:26 | disposition home or self-care (01) ==
LOC: SDC-PAIN 09:44
PROVIDERS: ATTEND Psychiatry & Neurology Pain Medicine
DX: M47.816 Spondylosis without myelopathy or radiculopathy, lumbar region (principal); E10.9 Type 1 diabetes mellitus without complications; Z79.899 Other long term (current) drug therapy
CPT/HCPCS: 64493; 64494; 72020; 77002; 82947; J1030; J2704

== ENCOUNTER 2023-05-26 10:49 | Emergency (ER) | payer MEDICARE ==
[~2023-05-26 10:49] MED LIST changes: -ACETAZOLAMIDE 250 MG TABLET PO ONE; -Ak-Dilate OPHTHALMIC*** 1.065 ML, Cyclogyl 1% OPHTH SOL 5 ML 1.065 ML, GATIFLOXACIN 0.5... OP ONE; -BETADINE 5% OPHTHALMIC 30 ML OP ONE; -Ketamine HCl 50 MG/ML ONE; -Lactated Ringers 1,000 ML IV ONE; -Lactated Ringers 1,000 ML IV SCH; -NON-FORMULARY ITEM OP ONE; -TETRACAINE 0.5% STERI-UNIT SOL OP ONE; -Zofran 4 MG/2 ML VIAL IV PRN; -cefUROXime sodium 0.005 GM in Sodium Chloride Flush 30 ML*** 0.5 ML IJ SCH
[2023-05-26] MEDS ORDERED: BUPIVACAINE 0.5% VIAL IJ ONE (10:50)
[2023-05-26] MEDS ORDERED: LIDOCAINE HCL 1% 50 MG/5 ML VL PF IJ ONE (10:50)
[2023-05-26] MEDS ORDERED: Lactated Ringers 1,000 ML IV ONE (10:50)
[2023-05-26] MEDS ORDERED: Depo-Medrol 40 MG/ML IM ONE (10:50)
--- NOTE | 2023-05-26 11:01 | ERPHSYRPT ---
- History of Present Illness Time Seen by Provider: 05/26/23 11:01 Source: patient, family Exam Limitations: no limitations Physician History: This is an obese 72-year-old white female patient of Dr. Calvillo and pain specialists Dr. Parnell who presents with left shoulder pain after a fall. Patient was in the pain management clinic and underwent a procedure where they injected the lumbar spine area. This occurred prior to arrival. At some point, post procedure, she stood up to walk and fell onto her left shoulder. Patient denies headache. Patient denies head injury, patient denies neck pain, patient denies neck injury. There was no loss of consciousness. Patient has multiple medical problems including hypothyroidism, hyperlipidemia, gastroesophageal reflux disease, seasonal allergies, COPD/bronchitis, arthritis, degenerative disc disease, rheumatoid arthritis, anxiety and bipolar disorder. Occurred: just prior to arrival Reason for Fall: fell from standing pos (Post lumbar spine injection procedure) Injuries/Pain Location: upper extremity (Left shoulder) Loss of Consciousness: no loss of consciousness Quality: aching Severity of Pain-Max: moderate Severity of Pain-Current: moderate Modifying Factors: Improves With: movement Associated Symptoms (Fall): denies symptoms Allergies/Adverse Reactions: Penicillins Allergy (Mild, Verified 01/05/23 13:58) itching and hives meperidine HCl [From Demerol] Allergy (Unknown, Verified 01/05/23 13:58) "MAKES CRAZY" Home Medications: Albuterol Sulfate [Ventolin Hfa] 2 puffs IH QID 08/27/19 [History] Ascorbic Acid 500 mg [Vitamin C 500 MG] 500 mg PO DAILY 08/27/19 [History] Cholecalciferol (Vitamin D3) [Vitamin D3] 1,000 unit PO DAILY 08/27/19 [History] Cyanocobalamin (Vitamin B-12) [B-12] 1,000 mcg PO DAILY 08/27/19 [History] Furosemide 20 mg [Lasix 20 mg] 20 mg PO DAILY 08/27/19 [History] Hydroxychloroquine Sulfate 200 mg PO BID 08/27/19 [History] Levothyroxine Sodium 50 Mcg [Synthroid 50 Mcg] 50 mcg PO DAILY 08/27/19 [History] Magnesium Oxide 400 mg [Mag-Ox 400] 400 mg PO BID 08/27/19 [History] [place]-3 Fatty Acids/Fish Oil [Fish Oil 1,000 mg Capsule] 1,000 mg PO DAILY 08/27/19 [History] Pregabalin [Lyrica 150Mg] 150 mg PO BID 08/27/19 [History] Simvastatin 40 mg PO HS 08/27/19 [History] Trazodone HCl 150 mg PO HS 08/27/19 [History] Budesonide/Glycopyr/Formoterol [Breztri Aerosphere Inhaler] 10.7 gm IH BID 04/16/21 [History] Hydrocodone/Acetaminophen [Hydrocodone-Acetamin 10-325 mg] 1 each PO TIDPRN PRN 04/16/21 [History] ARIPiprazole [Abilify Mycite] 2 mg PO DAILY 01/06/23 [History] Baclofen 10 mg [Lioresal 10 mg] 10 mg PO HSPRN PRN 01/06/23 [History] Clotrimazole Cream 30 gm [Lotrimin Cream 30 gm] 15 gm TP BIDPRN PRN 01/06/23 [History] Famotidine 40 mg PO DAILY 01/06/23 [History] Ferrous Sulfate 325 mg [Feosol 325 mg] 325 mg PO DAILY 01/06/23 [History] Mirabegron [Myrbetriq] 25 mg PO DAILY 01/06/23 [History] Montelukast Sodium 10 mg [Singulair 10 MG] 10 mg PO DAILY 01/06/23 [History] Potassium Chloride 60 meq PO BID 01/06/23 [History] Sertraline HCl 50 mg [Zoloft 50 mg Tablet] 100 mg PO DAILY 01/06/23 [History] Hx Tetanus, Diphtheria Vaccination/Date Given: Yes Hx Influenza Vaccination/Date Given: Yes Hx Pneumococcal Vaccination/Date Given: Yes Travel Risk - International Travel Have you traveled outside of the country in past 3 weeks: No If Yes, where;: N - Coronavirus Screening Are you exhibiting any of the following symptoms?: No Close contact with a COVID-19 positive Pt in past 14-21 Days: No - Vaccine Status Have you recieved a Covid-19 vaccination: Yes Rehabilitation Program Coordinator: Unknown - Vaccination Dates Dates if Unknown: unkown - Review of Systems Constitutional: No Symptoms Eyes: No Symptoms Ears, Nose, & Throat: No Symptoms Respiratory: No Symptoms Cardiac: No Symptoms Abdominal/Gastrointestinal: No Symptoms Genitourinary Symptoms: No Symptoms Musculoskeletal: Fall, Injury (Left shoulder) Skin: No Symptoms Neurological: No Symptoms Psychological: No Symptoms Endocrine: No Symptoms Hematologic/Lymphatic: No Symptoms Immunological/Allergic: No Symptoms All Other Systems: Reviewed and Negative - Past Medical History Pertinent Past Medical History: Yes Neurological History: TIA ENT History: No Pertinent History Cardiac History: High Cholesterol, Hypertension Respiratory History: Bronchitis, COPD Endocrine Medical History: Diabetes Type II Musculoskeletal History: Arthritis, Osteoarthritis, Osteoporosis, Rheumatoid Arthritis GI Medical History: Colitis, Diverticulitis, Esophageal Disorder, GERD, Gallbladder Disease, GI Bleed, Hemorrhoids, Irritable Bowel, Polyps History: Other Psycho-Social History: Anxiety, Bipolar, Depression, Panic Disorder Female Reproductive Disorders: No Pertinent History Other Medical History: fatty liver - Past Surgical History Past Surgical History: Yes Neuro Surgical History: No Pertinent History Cardiac: Cardiac Catheterization Respiratory: No Pertinent History Gastrointestinal: Appendectomy, Cholecystectomy Genitourinary: No Pertinent History Musculoskeletal: Joint Replacement, Other Female Surgical History: Hysterectomy Other Surgical History: CERIVCAL FUSION AND 5TH,6TH VETEBRAES FUSED. TOTAL RIGHT KNEE, right shoulder rotator cuff and right arm disloation, repair bicep muscle and tendon of right shoulder - Social History Smoking Status: Former smoker Exposure to second hand smoke: No Alcohol Use: None Drug Use: none Patient Lives Alone: Yes Significant Family History: diabetes, hypertension - Nursing Vital Signs Nursing Vital Signs: Initial Vital Signs Temperature 97.2 F 05/26/23 10:59 Pulse Rate 77 05/26/23 10:59 Respiratory Rate 20 05/26/23 10:59 Blood Pressure 132/93 05/26/23 10:59 O2 Sat by Pulse Oximetry 95 05/26/23 10:59 Pain Scale Pain Intensity 0 - [place] Coma Score Best Eye Response ([place]): (4) open spontaneously Best Verbal Response ([place]): (5) oriented Best Motor Response ([place]): (6) obeys commands [place] Total: 15 - Physical Exam General Appearance: no apparent distress, alert, anxiety Head Injury: no evidence of injury Eye Exam: PERRL/EOMI, eyes nml inspection ENT Exam: airway nml, evidence of ENT injury, nml ext.inspection Neck Exam: supple, trachea midline, full range of motion, normal alignment, normal inspection, No muscle spasm, No stiff neck Respiratory/Chest Exam: normal breath sounds, No chest tenderness, No respiratory distress, No ecchymosis, No crepitus Gastrointestinal Exam: No tenderness Rectal Exam: not done Back Exam: normal inspection, normal range of motion, No CVA tenderness, No vertebral tenderness Extremity Exam: normal inspection, pelvis stable, limited range of motion (Left shoulder with movement), No deformities, No evidence of injury Neurologic Exam: alert, oriented x 3, cooperative, hand stemmer II-XII nml as tested, normal mood/affect, nml cerebellar function, nml station & gait, sensation nml Skin Exam: normal color, warm, dry SpO2 Interpretation: normal O2 Delivery: Room Air - Course Nursing assessment & vital signs reviewed: Yes Ordered Tests: Active Orders 24 hr Category Date Time Status Sling Application STAT Care 05/26/23 11:24 Active [address]UORO GUIDE NEEDLE PLACE-PMG Routine Exams 05/26/23 06:32 Ordered LUMBAR LIMITED (2 OR 3 VIEWS) Routine Exams 05/26/23 06:32 Ordered SHOULDER Stat Exams 05/26/23 11:24 Completed POCT GLUCOSE Stat Lab 05/26/23 08:52 Completed Medication Summary Discontinued Medications Generic Name Dose Route Start Last Admin Trade Name Brendanq PRN Reason Stop Dose Admin Propofol Confirm 05/26/23 10:04 Propofol 10 Mg/Ml 20ml Vial Administered 05/26/23 10:05 Dose 200 mg IV .Cernium-[facility] Lab/Rad Data: Laboratory Results 05/26/23 Range/Units 08:52 POC Glucometer 166 H (74 to 106) mg/dL - Progress Progress: improved, pain not gone completely, re-examined Progress Note: 05/26/23 11:31 This patient's medical issue is 1 of low complexity the level of complexity in the work-up performed is based on review of the patient's past medical history, review of the patient's medication list, review the patient's drug allergy list, history of present illness and physical findings on examination. The work-up in this patient includes x-ray of the left shoulder. 05/26/23 12:18 The x-ray of the left shoulder was interpreted by the radiologist and I reviewed the impression. There is moderate AC degenerative changes. There is tiny spurring greater tuberosity of the humerus with tiny heterotopic ossification. There is no acute fracture or dislocation. Counseled pt/family regarding: diagnosis, need for follow-up, rad results Medical Desision Making - Diagnostic Testing Diagnostic test were ordered, analyzed, and reviewed by me: Yes Radiological Interpretation: Reviewed by me, Teleradiologist Report - Risk of complications Low Risk: Low risk of morbidity from additional dx testing or treatment - Departure Departure Disposition: Home Clinical Impression: Contusion of left shoulder Condition: Stable Critical Care Time: No Referrals: JULIAN CALVILLO DO [Primary Care Provider] - Follow up/PCP as directed Additional Instructions: Wear the sling for comfort measure. May use Tylenol and ibuprofen for pain control if there are no contraindications. Follow-up with your primary care provider and your pain specialist for outpatient pain control.
--- NOTE | 2023-05-26 11:51 | XRAY ---
Indication: Pain following fall. Comparison: December 28, 2022 3 portable views left shoulder unchanged again demonstrating osteopenia, moderate AC degenerative changes, tiny spurring greater tuberosity humerus with tiny heterotopic ossification, and degenerative changes visualized spine. No new/acute abnormalities.
[2023-05-26 11:58] VITALS: TEMP 97.1
[2023-05-26 12:16] VITALS: BP 137/91; PULSE 77; RESP 20; O2SAT 95
[2023-05-26] MEDS ORDERED: ZOFRAN ODT 4 MG PO ONE (12:48)
[2023-05-26] MEDS ORDERED: ZOFRAN ODT 4 MG ONE (12:49)
--- NOTE | 2023-05-26 14:28 | XRAY ---
Indication: Right L4-S1 RFA. Intraoperative fluoroscopy provided for 26 seconds. 3 digital spot images submitted for interpretation demonstrates posterior needle tips projecting over the expected right L4-S1 nerve roots. Correlate with intraoperative findings/report.
--- NOTE | 2023-05-26 14:58 | XRAY ---
26 seconds of fluoroscopy was used in surgery for a right L4-S1 RFA.
== END 2023-05-26 15:29 | disposition home or self-care (01) ==
LOC: EDSTATUS 10:49 → ED 10:49
DX: S40.012A Contusion of left shoulder, initial encounter (principal); W18.30XA Fall on same level, unspecified, initial encounter; Y92.531 Health care provider office as the place of occurrence of the external cause; E78.5 Hyperlipidemia, unspecified; I10 Essential (primary) hypertension; E11.9 Type 2 diabetes mellitus without complications; Z79.891 Long term (current) use of opiate analgesic; Z79.899 Other long term (current) drug therapy; M47.817 Spondylosis without myelopathy or radiculopathy, lumbosacral region
CPT/HCPCS: 64635; 64636; 72100; 73030; 77002; 82947; 99100; 99283; J1030; J2001; J2704; Q0162

== ENCOUNTER 2023-08-25 06:07 | Day surgery (SDC) | payer MEDICARE ==
[2023-08-25 06:54] VITALS: BP 129/65; PULSE 77; RESP 18; TEMP 97.3; O2SAT 94
[2023-08-25] MEDS ORDERED: Lactated Ringers 1,000 ML IV SCH (07:30)
== END 2023-08-25 08:15 | disposition home or self-care (01) ==
LOC: SDC 06:07
PROVIDERS: ATTEND Family Medicine
DX: Z53.8 Procedure and treatment not carried out for other reasons (principal); E11.9 Type 2 diabetes mellitus without complications
CPT/HCPCS: 82947

== ENCOUNTER 2024-10-09 15:58 | Emergency (ER) | payer MEDICARE ==
--- NOTE | 2024-10-09 16:02 | ERPHSYRPT ---
- History of Present Illness Time Seen by Provider: 10/09/24 16:01 Source: patient, family Exam Limitations: no limitations Physician History: This is a 74-year-old white female patient of Dr. Calvillo who lives alone and walks with a walker. She was not using her walker at home as she is supposed to be doing and her feet got tangled up while she was walking and she fell. She was having difficulty getting up so she contacted both 911 and her daughter. Her daughter arrived at the time of the paramedics. They were able to lift the patient up and the patient was able to ambulate with a walker without problems. She is on Plavix and there was a concern because she has a left forehead hematoma present. She wanted to have x-rays performed. She also presents with an abrasion to the lateral aspect of her left hand. Patient has a history of TIA, hypertension, hyperlipidemia, bronchitis/COPD, diabetes, rheumatoid arthritis, hypothyroidism, anxiety/panic disorder and bipolar disorder. Occurred: just prior to arrival Reason for Fall: tripped Injuries/Pain Location: head, face, neck, back, lower, middle Loss of Consciousness: no loss of consciousness Quality: aching Severity of Pain-Max: mild Severity of Pain-Current: mild Modifying Factors: Improves With: movement Associated Symptoms (Fall): back pain, No abdominal pain, No confusion, No chest pain, No dizziness, No shortness of breath Allergies/Adverse Reactions: Penicillins Allergy (Mild, Verified 08/09/23 15:11) itching and hives meperidine HCl [From Demerol] Allergy (Unknown, Verified 08/09/23 15:11) "MAKES CRAZY" Home Medications: Albuterol Sulfate [Ventolin Hfa] 2 puffs IH QID 08/27/19 [History] Ascorbic Acid 500 mg [Vitamin C 500 MG] 500 mg PO DAILY 08/27/19 [History] Cyanocobalamin (Vitamin B-12) [B-12] 1,000 mcg PO DAILY 08/27/19 [History] Furosemide 20 mg [Lasix 20 mg] 20 mg PO DAILY 08/27/19 [History] Hydroxychloroquine Sulfate 200 mg PO BID 08/27/19 [History] Levothyroxine Sodium 50 Mcg [Synthroid 50 Mcg] 50 mcg PO DAILY 08/27/19 [History] Magnesium Oxide 400 mg [Mag-Ox 400] 400 mg PO BID 08/27/19 [History] Pregabalin [Lyrica 150Mg] 150 mg PO BID 08/27/19 [History] Simvastatin 40 mg PO HS 08/27/19 [History] Trazodone HCl 150 mg PO HS 08/27/19 [History] Budesonide/Glycopyr/Formoterol [Breztri Aerosphere Inhaler] 10.7 gm IH BID 04/16/21 [History] Hydrocodone/Acetaminophen [Hydrocodone-Acetamin 10-325 mg] 1 each PO TIDPRN PRN 04/16/21 [History] ARIPiprazole [Abilify Mycite] 2 mg PO DAILY 01/06/23 [History] Clotrimazole Cream 30 gm [Lotrimin Cream 30 gm] 15 gm TP BIDPRN PRN 01/06/23 [History] Ferrous Sulfate 325 mg [Feosol 325 mg] 325 mg PO DAILY 01/06/23 [History] Montelukast Sodium 10 mg [Singulair 10 MG] 10 mg PO DAILY 01/06/23 [History] Potassium Chloride 60 meq PO BID 01/06/23 [History] Sertraline HCl 50 mg [Zoloft 50 mg Tablet] 100 mg PO DAILY 01/06/23 [History] Empagliflozin [Jardiance] 25 mg PO DAILY 10/09/24 [History] Hx Tetanus, Diphtheria Vaccination/Date Given: Yes Hx Influenza Vaccination/Date Given: Yes Hx Pneumococcal Vaccination/Date Given: Yes Travel Risk - International Travel Have you traveled outside of the country in past 3 weeks: No - Emerging Infectious Disease Are you exhibiting symptoms associated with any current EIDs: No - Past Medical History Pertinent Past Medical History: Yes Neurological History: TIA ENT History: No Pertinent History Cardiac History: High Cholesterol, Hypertension Respiratory History: Bronchitis, COPD Endocrine Medical History: Diabetes Type II Musculoskeletal History: Arthritis, Osteoarthritis, Osteoporosis, Rheumatoid Arthritis GI Medical History: Colitis, Diverticulitis, Esophageal Disorder, GERD, Gallbladder Disease, GI Bleed, Hemorrhoids, Irritable Bowel, Polyps History: Other Psycho-Social History: Anxiety, Bipolar, Depression, Panic Disorder Female Reproductive Disorders: No Pertinent History Other Medical History: fatty liver - Past Surgical History Past Surgical History: Yes Neuro Surgical History: No Pertinent History Cardiac: Cardiac Catheterization Respiratory: No Pertinent History Gastrointestinal: Appendectomy, Cholecystectomy Genitourinary: No Pertinent History Musculoskeletal: Joint Replacement, Other Female Surgical History: Hysterectomy Other Surgical History: CERIVCAL FUSION AND 5TH,6TH VETEBRAES FUSED. TOTAL RIGHT KNEE, right shoulder rotator cuff and right arm disloation, repair bicep muscle and tendon of right shoulder Significant Family History: diabetes, hypertension - Social History Smoking Status: Former smoker Drug Use: none - Nursing Vital Signs Nursing Vital Signs: Initial Vital Signs Temperature 98.4 F 10/09/24 16:24 Pulse Rate 86 10/09/24 16:24 Respiratory Rate 20 10/09/24 16:24 Blood Pressure 118/75 10/09/24 16:24 O2 Sat by Pulse Oximetry 96 10/09/24 16:24 Pain Scale Pain Intensity 0 - [place] Coma Score Best Eye Response ([place]): (4) open spontaneously Best Verbal Response (Marc): (5) oriented Best Motor Response ([place]): (6) obeys commands [place] Total: 15 - Physical Exam General Appearance: no apparent distress, alert, anxiety Head Injury: swelling (With ecchymosis and minimal tenderness above the left eyebrow) Eye Exam: PERRL/EOMI, eyes nml inspection ENT Exam: airway nml, nml ext.inspection, No evidence of ENT injury, No dental injury Neck Exam: supple, trachea midline, full range of motion, normal alignment, normal inspection Respiratory/Chest Exam: normal breath sounds, respiratory distress, ecchymosis, crepitus, decreased breath sounds, No chest tenderness Gastrointestinal Exam: soft, normal bowel sounds, tenderness Genitalia Exam: normal genital exam Rectal Exam: not done Back Exam: normal inspection, normal range of motion, No CVA tenderness, No vertebral tenderness Extremity Exam: normal range of motion, other (Mild abrasion lateral/ulnar aspect of left hand) Neurologic Exam: alert, oriented x 3, cooperative, fisher troll line II-XII nml as tested, normal mood/affect, nml cerebellar function, nml station & gait, sensation nml Skin Exam: abrasion SpO2 Interpretation: normal O2 Delivery: Room Air - Course Nursing assessment & vital signs reviewed: Yes Ordered Tests: Active Orders 24 hr Category Date Time Status CERVICAL SPINE WO CONTRAST [CT] Stat Exams 10/09/24 16:41 Completed FACIAL BONES WO CONTRAST [CT] Stat Exams 10/09/24 16:41 Completed HEAD WITHOUT CONTRAST [CT] Stat Exams 10/09/24 16:41 Completed LUMBAR SPINE W/O [CT] Stat Exams 10/09/24 16:41 Completed THORACIC SPINE W/O CONTRAST [CT] Stat Exams 10/09/24 16:41 Completed - Progress Progress: improved Progress Note: 10/09/24 17:50 My medical decision making in the assignment of low to moderate complexity was based on review of the patient's past medical history, reviewed the patient's medication list, reviewed patient drug allergy list, history of present illness, physical findings on examination. The patient only wanted x-rays done as she had fallen but she is feeling well at this time. She was ambulating with her walker after the fall. However she is on Plavix. Therefore, the patient agreed to CT scan of the head, cervical spine, face, lumbar spine and thoracic spine. All of these CT scans are without contrast. Differential diagnosis includes but is not limited to abrasion, fracture/subluxation of thoracic and lumbar spine, fracture/subluxation of facial bones, fracture/subluxation of cervical spine, contusion of scalp/forehead, abrasion of left hand, acute intracranial abnormality Counseled pt/family regarding: diagnosis, need for follow-up, rad results Medical Desision Making - Independent Historian Additional History obtained from: Family - Diagnostic Testing Diagnostic test were ordered, analyzed, and reviewed by me: Yes Radiological Interpretation: Reviewed by me, Teleradiologist Report - Risk of complications Low Risk: Low risk of morbidity from additional dx testing or treatment - Departure Departure Disposition: Home Clinical Impression: Fall with no significant injury, Abrasion of left hand, Forehead contusion Condition: Good Critical Care Time: No Referrals: JULIAN CALVILLO DO [Primary Care Provider] - Follow up/PCP as directed Additional Instructions: Ice pack to the forehead contusions 3 times a day for the next 3 to 4 days. Stop your Plavix for 24 hours then restart at the same dosing. Ambulate only with your walker. Resume your other medications as prescribed. Call your primary care provider tomorrow, 10/10/2024, to make arrangements for follow-up appointment for further evaluation management.
[2024-10-09 16:30] VITALS: TEMP 98.4
--- NOTE | 2024-10-09 17:15 | XRAY ---
Indication: Status post fall injury. Multiple contiguous axial images obtained through the head without contrast. Comparison: January 05, 2023 Normal appearing brain parenchyma, ventricles, and bony calvarium for patient's age. Visualized paranasal sinuses and mastoid air cells are clear. Impression: Continued normal CT head without contrast exam.
--- NOTE | 2024-10-09 17:17 | XRAY ---
Indication: Status post fall injury. Multiple contiguous axial images obtained through the facial bones. Sagittal and coronal reformatted images obtained. Comparison: None Patient edentulous. Osseous structures demineralized. Axial images negative for acute fracture, suspicious bony lesions, or reperformed body. Orbits including roof, burch, and floors intact. Paranasal sinuses are clear. Nasal passages also clear with incidental minimal S-shaped nasal septal deviation. Visualized noncontrasted soft tissues unremarkable. CT head and CT cervical spine reported separately. Impression: Osteopenia and minimal nasal septal deviation. Remaining CT facial bones normal.
--- NOTE | 2024-10-09 17:21 | XRAY ---
Indication: Status post fall injury. Multiple contiguous axial images obtained through the cervical. Sagittal and coronal reformatted images obtained. Comparison: None Osseous structures remain demineralized consistent with patient's age. Axial images again negative for acute fracture, suspicious bony lesions, or spinal canal stenosis. Again C5-C6 fusion, mild C4-C7 degenerative endplate spurring, mild/moderate multilevel bilateral degenerative facet hypertrophy, and atlantoaxial degenerative arthropathy. Sagittal and coronal reformatted images again demonstrates lordotic straightening, positional versus paraspinal spasm. Stable minimal anterolisthesis C4 on C5. Again no acute compression fracture or jumped facet. Normal appearing craniocervical junction. Visualized noncontrasted soft tissues unremarkable. Impression: Again chronic findings including osteopenia, cervical lordotic straightening, C5-C6 fusion, multilevel degenerative spondylosis, and minimal grade 1 C4 listhesis. No new/acute findings.
--- NOTE | 2024-10-09 17:27 | XRAY ---
Indication: Status post fall injury. Multiple contiguous axial images obtained through the thoracic spine. Sagittal and coronal reformatted images obtained. Comparison: CT chest January 06, 2023 Osseous structures remain demineralized consistent with patient's age. Axial images again negative for acute fracture, suspicious bony lesions, or spinal canal stenosis. Again minimal/mild multilevel degenerative spondylosis with T10-T12 degenerative vacuum disc phenomena. Sagittal and coronal reformatted images again demonstrates normal thoracic kyphosis with minimal dextroscoliosis. There remains multilevel disc space narrowing. No acute compression fracture or subluxation. Visualized noncontrasted soft tissues are unremarkable. CT cervical and CT lumbar spine reported separately. Impression: Again chronic findings including osteopenia, multilevel degenerative spondylosis, and dextroscoliosis. No new/acute findings.
--- NOTE | 2024-10-09 17:29 | XRAY ---
Indication: Status post fall injury. Multiple contiguous axial images obtained through the lumbar spine. Sagittal and coronal reformatted images obtained. Comparison: CT abdomen/pelvis January 06, 2023 CT thoracic spine reported separately. Osseous structures remain demineralized consistent with patient's age. Axial images again negative for acute fracture, suspicious bony lesions, or spinal canal stenosis. Again minimal broad-based L2-S1 disc bulge, mild/moderate bilateral L2-S1 degenerative facet hypertrophy, and mild bilateral SI joint degenerative changes. Sagittal and coronal reformatted images again demonstrates normal lumbar lordosis with minimal anterolisthesis L4 on L5. Vertebral body heights/disc spaces maintained. No acute compression fracture or subluxation. Visualized noncontrasted soft tissues again demonstrates mild scattered aortoiliac calcifications. Impression: Again chronic findings including osteopenia, multilevel degenerative spondylosis, minimal grade 1 L4 listhesis, and arteriosclerotic disease. No new/acute findings.
[2024-10-09 18:17] VITALS: BP 111/61; PULSE 78; RESP 18; O2SAT 96
[2024-10-09] MEDS ORDERED: BACIGUENT PACKET ONE (18:21)
== END 2024-10-09 18:28 | disposition home or self-care (01) ==
LOC: ED 15:58
DX: S00.83XA Contusion of other part of head, initial encounter (principal); S60.512A Abrasion of left hand, initial encounter; W01.0XXA Fall on same level from slipping, tripping and stumbling without subsequent striking against object, initial encounter; I10 Essential (primary) hypertension; E78.5 Hyperlipidemia, unspecified; E11.9 Type 2 diabetes mellitus without complications; Z79.02 Long term (current) use of antithrombotics/antiplatelets; Z79.84 Long term (current) use of oral hypoglycemic drugs; Z79.899 Other long term (current) drug therapy
CPT/HCPCS: 70450; 70486; 72125; 72128; 72131; 99284; A9270-GY

== ENCOUNTER 2025-02-23 22:24 | Emergency (ER) | payer MEDICARE, SELFPAY ==
[2025-02-23 22:46] VITALS: RESP 18; TEMP 97
--- NOTE | 2025-02-23 22:54 | ERPHSYRPT ---
- History of Present Illness Time Seen by Provider: 02/23/25 22:54 Source: patient Exam Limitations: no limitations Patient Subjective Stated Complaint: pt states that she stubbed her toe and fell on her shoulder Triage Nursing Assessment: pt came into the er via wheelchair; pt is axo x4; c/o left shoulder injury; pt states 10/10 pain to left shoulder; left shoulder is swollen, tender; decreased ROM to left shoulder; skin PDW; skin tear present to left forearm that measured 1 cm; no respiratory distress present; hypertensive Physician History: Patient stubbed her toe causing her to fall and land on her left shoulder. Patient reports 10/10 and inability to move the shoulder. Small skin tear left forearm. Denies other injury, no loc. Occurred: just prior to arrival Method of Injury: fell Quality: constant, sharpness, stabbing Severity of Pain-Max: severe Severity of Pain-Current: severe Extremities Pain Location: shoulder: left Modifying Factors: Worsens With: movement Associated Symptoms: none Allergies/Adverse Reactions: Penicillins Allergy (Mild, Verified 02/23/25 22:36) itching and hives meperidine HCl [From Demerol] Allergy (Unknown, Verified 02/23/25 22:36) "MAKES CRAZY" Home Medications: Albuterol Sulfate [Ventolin Hfa] 2 puffs IH QID 08/27/19 [History] Ascorbic Acid 500 mg [Vitamin C 500 MG] 500 mg PO DAILY 08/27/19 [History] Cyanocobalamin (Vitamin B-12) [B-12] 1,000 mcg PO DAILY 08/27/19 [History] Furosemide 20 mg [Lasix 20 mg] 20 mg PO DAILY 08/27/19 [History] Hydroxychloroquine Sulfate 200 mg PO BID 08/27/19 [History] Levothyroxine Sodium 50 Mcg [Synthroid 50 Mcg] 50 mcg PO DAILY 08/27/19 [History] Magnesium Oxide 400 mg [Mag-Ox 400] 400 mg PO BID 08/27/19 [History] Pregabalin [Lyrica 150Mg] 150 mg PO BID 08/27/19 [History] Simvastatin 40 mg PO HS 08/27/19 [History] Trazodone HCl 150 mg PO HS 08/27/19 [History] Budesonide/Glycopyr/Formoterol [Breztri Aerosphere Inhaler] 10.7 gm IH BID [History] Hydrocodone/Acetaminophen [Hydrocodone-Acetamin 10-325 mg] 1 each PO TIDPRN PRN 04/16/21 [History] ARIPiprazole [Abilify Mycite] 2 mg PO DAILY 01/06/23 [History] Clotrimazole Cream 30 gm [Lotrimin Cream 30 gm] 15 gm TP BIDPRN PRN 01/06/23 [History] Ferrous Sulfate 325 mg [Feosol 325 mg] 325 mg PO DAILY 01/06/23 [History] Montelukast Sodium 10 mg [Singulair 10 MG] 10 mg PO DAILY 01/06/23 [History] Potassium Chloride 60 meq PO BID 01/06/23 [History] Sertraline HCl 50 mg [Zoloft 50 mg Tablet] 100 mg PO DAILY 01/06/23 [History] Empagliflozin [Jardiance] 25 mg PO DAILY 10/09/24 [History] Hx Tetanus, Diphtheria Vaccination/Date Given: No Hx Influenza Vaccination/Date Given: Yes Hx Pneumococcal Vaccination/Date Given: Yes Travel Risk - International Travel Have you traveled outside of the country in past 3 weeks: No - Emerging Infectious Disease Are you exhibiting symptoms associated with any current EIDs: No - Review of Systems All Other Systems: Reviewed and Negative - Past Medical History Pertinent Past Medical History: Yes Neurological History: TIA ENT History: No Pertinent History Cardiac History: High Cholesterol, Hypertension Respiratory History: Bronchitis, COPD Endocrine Medical History: Diabetes Type II Musculoskeletal History: Arthritis, Osteoarthritis, Osteoporosis, Rheumatoid Arthritis GI Medical History: Colitis, Diverticulitis, Esophageal Disorder, GERD, Gallbladder Disease, GI Bleed, Hemorrhoids, Irritable Bowel, Polyps History: Other Psycho-Social History: Anxiety, Bipolar, Depression, Panic Disorder Female Reproductive Disorders: No Pertinent History Other Medical History: fatty liver - Past Surgical History Past Surgical History: Yes Neuro Surgical History: No Pertinent History Cardiac: Cardiac Catheterization Respiratory: No Pertinent History Gastrointestinal: Appendectomy, Cholecystectomy Genitourinary: No Pertinent History Musculoskeletal: Joint Replacement, Other Female Surgical History: Hysterectomy Other Surgical History: CERIVCAL FUSION AND 5TH,6TH VETEBRAES FUSED. TOTAL RIGHT KNEE, right shoulder rotator cuff and right arm disloation, repair bicep muscle and tendon of right shoulder Significant Family History: diabetes, hypertension - Social History Smoking Status: Former smoker Exposure to second hand smoke: No Drug Use: none - Social Determinants of Health Will the patient participate in the screening: Declined to provide - Nursing Vital Signs Nursing Vital Signs: Initial Vital Signs Pulse Rate 90 02/23/25 22:34 Blood Pressure 148/83 02/23/25 22:34 O2 Sat by Pulse Oximetry 97 02/23/25 22:34 Pain Scale Pain Intensity 7 - Physical Exam General Appearance: no apparent distress Shoulder Exam: normal inspection, bone tenderness, limited ROM, pain, soft tissue tenderness Elbow/Forearm Exam: normal ROM, abrasions (skin tear left forearm) Wrist Exam: normal inspection, non-tender, no evidence of injury, normal ROM Neuro/Tendon Exam: normal sensation Mental Status Exam: alert, oriented x 3, cooperative SpO2 Interpretation: normal SpO2: 97 O2 Delivery: Room Air - Course Nursing assessment & vital signs reviewed: Yes - Radiology Exams Left Shoulder X-ray Interpretation: Interpreted by me, Non-displaced Fracture (distal clavicle) Ordered Tests: Active Orders 24 hr Category Date Time Status HUMERUS Stat Exams 02/23/25 23:03 Taken SHOULDER Stat Exams 02/23/25 23:03 Taken UPPER EXTREMITY W/O CONTRAST [CT] Stat Exams 02/23/25 23:47 Completed Medication Summary Discontinued Medications Generic Name Dose Route Start Last Admin Trade Name Freq PRN Reason Stop Dose Admin Bacitracin Zinc Confirm 02/23/25 23:07 Bacitracin Packet 1 Each Pckt Administered 02/23/25 23:08 Dose 1 each .ROUTE .STK-MED ONE Bacitracin Zinc 0.9 each 02/23/25 23:10 02/23/25 23:12 Bacitracin Packet 1 Each Pckt TP 02/23/25 23:11 0.9 each STAT ONE Administration - Progress Progress: pain not gone completely Progress Note: XR showed nondisplaced distal clavicle fx and possible irregularity of glenoid. CT shoulder ordered to evaluate the glenoid. CT neg for gx of glenoid. Place in sling for clavicle and follow up with ortho. Continue prescribed Carson as needed for pain. Ice 3-4 times daily for 5-10 min. Counseled pt/family regarding: diagnosis, need for follow-up, rad results Medical Desision Making - Diagnostic Testing Diagnostic test were ordered, analyzed, and reviewed by me: Yes Radiological Interpretation: Interpreted by me, Reviewed by me, Teleradiologist Report - Risk of complications Low Risk: Low risk of morbidity from additional dx testing or treatment - Departure Departure Disposition: Home Clinical Impression: Traumatic closed fracture of distal clavicle with minimal displacement Condition: Stable Critical Care Time: No Referrals: JULIAN CALVILLO DO [Primary Care Provider, [facility]] - Follow up/PCP as directed Instructions: Clavicle fracture
[2025-02-23] MEDS ORDERED: BACIGUENT PACKET ONE (23:07)
[2025-02-23] MEDS: BACIGUENT PACKET TP ONE (23:12)
--- NOTE | 2025-02-24 01:43 | XRAY ---
CLINICAL HISTORY: left shoulder pain COMPARISON: none TECHNIQUE: Contiguous axial CT images of left shoulder were obtained without intravenous contrast. Coronal and sagittal reconstructions were likewise performed and indicated to increase the sensitivity for detecting clinically relevant pathology. CT scan was performed according to ALARA (as low as reasonable achievable). FINDINGS: Undisplaced fracture of lateral 1/3rd segment of left clavicle. Enthesophyte at greater tuberosity of humerus. Mild degenerative changes in glenohumeral and acromioclavicular joint. The visualized muscles and tendons appear grossly unremarkable. No cortical destruction to suggest osteomyelitis. No abscess formation. No significant joint effusion. There are no soft tissue masses. Old healed fractures of left sided ribs. Normal subcutaneous adipose space. IMPRESSION: 1. Undisplaced fracture of lateral 1/3rd segment of left clavicle. 2. Enthesophyte at greater tuberosity of humerus. 3. Mild degenerative changes in glenohumeral and acromioclavicular joint. Electronically Signed by: Jose A Glaser MD. (02/24/2025 01:42:30 EDT)
[2025-02-24 02:01] VITALS: BP 121/62; PULSE 96
[2025-02-24 02:05] VITALS: O2SAT 97
--- NOTE | 2025-02-24 08:12 | XRAY ---
Indication: Pain following fall. Comparison: None 3 view left shoulder demonstrates nondisplaced healing fracture distal shaft clavicle. Elsewhere chronic findings including osteopenia, moderate glenohumeral degenerative arthropathy with bony spurring, mild acromioclavicular degenerative arthropathy, deformity/bony exostosis gland process either degenerative versus old injury, old 6/7 rib fractures, mild/moderate multilevel degenerative spondylosis, and mild left lung base subsegmental atelectasis/scarring.
--- NOTE | 2025-02-24 08:12 | XRAY ---
Indication: Pain following fall. Comparison: None 2 view left humerus demonstrates nondisplaced healing fracture distal shaft clavicle. Elsewhere chronic findings including osteopenia, moderate glenohumeral degenerative arthropathy with bony spurring, mild acromioclavicular degenerative arthropathy, deformity/bony exostosis gland process either degenerative versus old injury, tiny medial/lateral epicondyle spurring, old 6/7 rib fractures, mild/moderate multilevel degenerative spondylosis, and mild left lung base subsegmental atelectasis/scarring.
== END 2025-02-24 02:12 | disposition home or self-care (01) ==
LOC: ED 22:24
DX: S42.032A Displaced fracture of lateral end of left clavicle, initial encounter for closed fracture (principal); W01.0XXA Fall on same level from slipping, tripping and stumbling without subsequent striking against object, initial encounter; I10 Essential (primary) hypertension; E11.9 Type 2 diabetes mellitus without complications; Z79.84 Long term (current) use of oral hypoglycemic drugs; Z79.899 Other long term (current) drug therapy